=== PATIENT | male | born 1955 | race American Indian/Alaskan Native ===

== ENCOUNTER 2017-01-01 10:41 | Outpatient (CLI) | payer OTHER ==
--- NOTE | 2017-01-01 11:58 | Fluoroscopy Report ---
BARIUM SWALLOW INDICATION: Dysphagia for 6 months. 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 COMPARISON: None similar. FINDINGS: Barium swallow performed. Patient swallowed thick and thin barium without any difficulty as also tolerated effervescent granules well. No emanuel aspiration with normal swallowing mechanism. Penetration/undercoating however noted towards the end of the exam. No significant abnormal pooling within the vallecula or piriform sinuses. Transient appearance of lower cervical/subglottic esophageal narrowing on some images though not reliably confirmed, appearing better distended on other images. Thoracic esophagus is normal in course and caliber. Normal peristalsis. Distal esophageal B-ring incidentally noted. No focal suspicious mucosal abnormality. No demonstrable gastroesophageal reflux. Visualized gastric fundus is unremarkable. Standard barium tablet passed into the stomach without any difficulty or delay/holdup. CONCLUSION: Various findings, including penetration, as above. Direct endoscopic visualization of the lower cervical esophagus may also be considered, as appropriate. Thank you for the opportunity to participate in this patient's care.
== END 2017-01-01 10:42 | disposition home or self-care (01) ==
LOC: FLUORO 10:41
PROVIDERS: ATTEND Internal Medicine Gastroenterology
DX: R13.10 Dysphagia, unspecified (principal); Z85.89 Personal history of malignant neoplasm of other organs and systems
CPT/HCPCS: 74220

== ENCOUNTER 2017-08-09 19:51 | Emergency (ER) | payer OTHER ==
[2017-08-09] MEDS ORDERED: NACL 0.9% 500 ML 500 ML IV ONE (20:04)
--- NOTE | 2017-08-09 20:26 | Emergency Department Report ---
- General Chief complaint: Weakness Stated complaint: GENERAL WEAKNESS Time Seen by Provider: 08/09/17 20:24 Source: patient, EMS Mode of arrival: Stretcher Limitations: No Limitations - History of Present Illness Initial comments: 61-year-old diabetic male presents with weakness, onset today, along with nausea and vomiting. He was found to be febrile on triage in the emergency department, and brought to the main unit directly, rehydrated with saline. - Related Data Previous Rx's Medication Instructions Recorded Last Taken Type Amoxicillin/Potassium Clav 1 each PO TID #30 tablet 08/09/17 Unknown Rx [Augmentin 875-125 Tablet] Azithromycin [Zithromax TAB] 500 mg PO QDAY #2 tablet 08/09/17 Unknown Rx HYDROcodone/APAP 5-325 [[place] 1 each PO Q4HR PRN #15 tablet 08/09/17 Unknown Rx 5/325] Ondansetron [Zofran ODT TAB] 8 mg PO Q8HR PRN #10 tab.rapdis 08/09/17 Unknown Rx Allergies Allergy/AdvReac Type Severity Reaction Status Date / Time No Known Allergies Allergy Unverified 01/01/17 10:41 ED Review of Systems ROS: Stated complaint: GENERAL WEAKNESS Other details as noted in HPI ED Past Medical Hx - Past Medical History Hx Diabetes: Yes (type 2) - Social History Smoking Status: Never Smoker Substance Use Type: None - Medications Home Medications: Home Medications Medication Instructions Recorded Confirmed Last Taken Type Amoxicillin/Potassium Clav 1 each PO TID #30 tablet 08/09/17 Unknown Rx [Augmentin 875-125 Tablet] Azithromycin [Zithromax TAB] 500 mg PO QDAY #2 tablet 08/09/17 Unknown Rx HYDROcodone/APAP 5-325 [[place] 1 each PO Q4HR PRN #15 tablet 08/09/17 Unknown Rx 5/325] Ondansetron [Zofran ODT TAB] 8 mg PO Q8HR PRN #10 tab.rapdis 08/09/17 Unknown Rx ED Physical Exam - General Limitations: No Limitations ED Course Vital Signs 08/09/17 08/09/17 08/09/17 20:05 20:11 20:29 Temperature 101.3 F H Pulse Rate 116 H 110 H Respiratory 18 18 19 Rate Blood Pressure 150/83 O2 Sat by Pulse 94 94 94 Oximetry 08/09/17 08/09/17 08/09/17 20:30 20:45 20:55 Temperature 100.3 F H Pulse Rate 110 H 110 H Respiratory 22 19 Rate Blood Pressure 152/83 O2 Sat by Pulse 93 93 Oximetry 08/09/17 08/09/17 08/09/17 21:00 21:15 21:30 Temperature Pulse Rate 109 H 107 H 105 H Respiratory 21 19 17 Rate Blood Pressure 151/87 142/88 135/80 O2 Sat by Pulse 90 Oximetry 08/09/17 21:45 Temperature Pulse Rate 104 H Respiratory 21 Rate Blood Pressure 119/75 O2 Sat by Pulse 94 Oximetry - Reevaluation(s) Reevaluation #1: 08/09/17 21:53 Patient clinically stable on repeat examination, tolerates oral fluids, blood pressure is stable, oxygen saturation 100% on room air, and resting fairly comfortably. 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 His only comorbid factor is diabetes, but he has negative sepsis findings, with a normal lactate of 1.1. ED Medical Decision Making - Lab Data Result diagrams: 08/09/17 20:20 08/09/17 20:20 - Radiology Data Radiology results: report reviewed (left lower lobe infiltrate) - Medical Decision Making Patient has an isolated left lower lobe pneumonia, but is clinically stable, with normal vital signs, normal respirations, no labored breathing, is tolerating fluids now although he had a single episode of vomiting earlier in the afternoon, and has a moderate left shift but a normal total white count, and a normal lactate of 1.1. He is stable for discharge home, was given initial dose of Rocephin IV, as well as azithromycin, and will be discharged on Augmentin and azithromycin, with home rest, and 3-4 day follow-up with his physician. - Differential Diagnosis sepsis, urinary tract infection, pharyngitis, pneumonia Critical Care Time: No Critical care attestation.: If time is entered above; I have spent that time in minutes in the direct care of this critically ill patient, excluding procedure time. ED Disposition Clinical Impression: Community acquired pneumonia Qualifiers: Laterality: left Lung location: lower lobe of lung Qualified Code(s): J18.1 - Lobar pneumonia, unspecified organism Disposition: DC-01 TO HOME OR SELFCARE Is pt being admited?: No Does the pt Need Aspirin: No Condition: Stable Instructions: Community-acquired Pneumonia (ED), Bacterial Pneumonia (ED) Additional Instructions: Diagnosis: Pneumonia, left lower lobe You have a pneumonia in the left lower portion of her lung, but this is relatively uncomplicated, and you are stable to be treated with medicines at home. Take Augmentin 3 times daily for the next 10 days. This is an antibiotic to treat pneumonia Take azithromycin, 500 mg daily for the next 2 days, beginning with the first dose tomorrow, as the first dose has been given here in the emergency department. Although this is only 3 tablets, it we'll give you 10-14 days for protection against the most common organisms that are generally required in the community. Drink plenty of fluids, and rest while you're feeling poorly. Check your temperature several times a day, and treat any fever or any symptoms of feverishness with Tylenol or ibuprofen. You may eat and drink as you normally do . Continue your insulin as before. We have given work excuse for the next week, and you should have examination by her doctor before you go back to work, preferably at the beginning of this coming week. Have any significant worsening, particularly difficulty breathing. Prescriptions: Amoxicillin/Potassium Clav [Augmentin 875-125 Tablet] 1 each PO TID #30 tablet Azithromycin [Zithromax TAB] 500 mg PO QDAY #2 tablet HYDROcodone/APAP 5-325 [[place] 5/325] 1 each PO Q4HR PRN #15 tablet PRN Reason: cough or pain Ondansetron [Zofran ODT TAB] 8 mg PO Q8HR PRN #10 tab.rapdis PRN Reason: Nausea Forms: Work/School Release Form(ED) Time of Disposition: 22:03
[2017-08-09] MEDS ORDERED: TYLENOL PO ONE (20:38)
[2017-08-09 20:40] LABS: Hematocrit 33.2 % (35.5-45.6); Hemoglobin 11.5 gm/dl (11.8-15.2); Mean Corpuscular HGB Conc 35 % (32-34); Mean Corpuscular Hemoglobin 30 pg (28-32); Mean Corpuscular Volume 86 fl (84-94); Platelet Count 205 K/mm3 (140-440); Red Blood Count 3.84 M/mm3 (3.65-5.03); Red Cell Distribution Width 13.9 % (13.2-15.2)
[2017-08-09 20:49] LABS: INR 0.9 (0.87-1.13)
[2017-08-09 21:02] LABS: Albumin 4.3 g/dL (3.9-5)
--- NOTE | 2017-08-09 21:19 | XRay Report ---
FINAL REPORT PROCEDURE: XR CHEST 1V AP TECHNIQUE: Chest radiograph anteroposterior view. CPT 48213 HISTORY: possible Sepsis COMPARISON: No prior studies are available for comparison. FINDINGS: Heart: Normal. Mediastinum/Vessels: Normal. Lungs/Pleural space: The lungs are well-expanded. There are infiltrates at the left lung base. There is no pleural effusion or pneumothorax.. Bony thorax: No acute osseous abnormality. Life support devices: None. IMPRESSION: Left lower lobe infiltrates..
[2017-08-09 21:25] LABS: Anisocytosis 1+; Band Neutrophils # (Manual) 0.6 K/mm3; Basophils % (Manual) 0 % (0.0-1.8); Eosinophils % (Manual) 0 % (0.0-4.3); Platelet Estimate Consistent w Auto; Total Cells Counted 100
[2017-08-09] MEDS ORDERED: ZITHROMAX PO ONE (21:52)
[2017-08-09] MEDS ORDERED: cefTRIAXone 1 GM in NACL 0.9% 20 ML IV ONE (22:00)
[2017-08-09 22:59] VITALS: BP 133/81
== END 2017-08-09 22:50 | disposition home or self-care (01) ==
LOC: ED 19:51
DX: J18.1 Lobar pneumonia, unspecified organism (principal); E11.9 Type 2 diabetes mellitus without complications
CPT/HCPCS: 36415; 71045; 80053; 82140; 82805; 85007; 85025; 85610; 87040; 96374; 99285; J0696; J7040

== ENCOUNTER 2018-07-20 15:35 | Inpatient (IN) | payer OTHER ==
[2018-07-20] MEDS ORDERED: D5W 1,000 ML IV ONE (15:55)
[2018-07-20] MEDS ORDERED: D50W (25GM) Syringe IV ONE ×3 (15:55→18:14)
--- NOTE | 2018-07-20 16:04 | Emergency Department Report ---
HPI - General Chief Complaint: GI Bleed Time Seen by Provider: 07/20/18 15:41 - HPI HPI: Room 21 The patient is a 62-year-old male presenting with a chief complaint cough and altered mental status. The patient is lethargic and does not provide history. Family at bedside states the patient has had a cough productive of white sputum for the past 2 weeks. She states the patient also occasionally has posttussive emesis and blood is noted in the emesis. No history of fever. When asked what is bothering him the patient does not respond. The patient was initially hypoxic to the 70s on room air. This PO2 improved to 97% on 4 L nasal cannula Location: Mental state Duration: 2 weeks Quality: Altered Severity: Moderate Modifying factors: [see above] Context: [see above] Mode of transportation: [not driving] ED Past Medical Hx - Past Medical History Hx Hypertension: Yes Hx Diabetes: Yes (type 2) Hx of Cancer: Yes (throat CA s/p surgery, xrt, chemo) - Surgical History Past Surgical History?: No Additional Surgical History: throat sx - Family History Family history: no significant - Social History Smoking Status: Never Smoker Substance Use Type: None, Alcohol (occasional) - Medications Home Medications: Home Medications Medication Instructions Recorded Confirmed Last Taken Type Amoxicillin/Potassium Clav 1 each PO TID #30 tablet 08/09/17 Unknown Rx [Augmentin 875-125 Tablet] Azithromycin [Zithromax TAB] 500 mg PO QDAY #2 tablet 08/09/17 Unknown Rx HYDROcodone/APAP 5-325 [[place] 1 each PO Q4HR PRN #15 tablet 08/09/17 Unknown Rx 5/325] Ondansetron [Zofran ODT TAB] 8 mg PO Q8HR PRN #10 tab.rapdis 08/09/17 Unknown Rx ED Review of Systems ROS: Stated complaint: VOMITING, HIGH BLOOD SUGAR Other details as noted in HPI Comment: Unobtainable due to pts medical conditions Physical Exam - Physical Exam Physical Exam: GENERAL: The patient is well-developed well-nourished male appearing lethargic lying on stretcher. [] HEENT: Normocephalic. Atraumatic. Extraocular motions are intact. Patient has moist mucous membranes. NECK: Supple. Trachea midline CHEST/LUNGS: Clear to auscultation. There is no respiratory distress noted. HEART/CARDIOVASCULAR: Regular. There is no tachycardia. There is no gallop rub or murmur. ABDOMEN: Abdomen is soft, nontender. Patient has normal bowel sounds. There is no abdominal distention. SKIN: There is no rash. There is no edema. There is no diaphoresis. NEURO: The patient is lethargic and does not answer all questions. The patient is not cooperative. MUSCULOSKELETAL: There is no evidence of acute injury. ED Medical Decision Making - Lab Data Result diagrams: 07/20/18 16:03 07/20/18 16:03 Laboratory Tests 07/20/18 07/20/18 07/20/18 15:55 16:03 16:03 WBC 6.2 RBC 5.29 H Hgb 15.3 H Hct 46.1 H MCV 87 MCH 29 MCHC 33 RDW 14.8 Plt Count 246 Lymph % (Auto) 5.9 L [place] % (Auto) 3.8 Eos % (Auto) 0.1 Baso % (Auto) 0.3 Lymph # 0.4 L [place] # 0.2 Eos # 0.0 Baso # 0.0 Seg Neutrophils % 89.9 H Seg Neutrophils # 5.6 PT 13.6 INR 0.98 APTT 22.2 L VBG pH Sodium Potassium Chloride Carbon Dioxide Anion Gap BUN Creatinine Estimated GFR BUN/Creatinine Ratio POC Glucose < 40 L Calcium Total Bilirubin AST ALT Alkaline Phosphatase Total Creatine Kinase CK-MB (CK-2) CK-MB (CK-2) Rel Index Troponin T NT-Pro-B Natriuret Pep Total Protein Albumin Albumin/Globulin Ratio 07/20/18 07/20/18 07/20/18 16:03 16:05 16:20 WBC RBC Hgb Hct MCV MCH MCHC RDW Plt Count Lymph % (Auto) Louis[place] % (Auto) Eos % (Auto) Baso % (Auto) Lymph # [place] # Eos # Baso # Seg Neutrophils % Seg Neutrophils # PT INR APTT VBG pH 7.312 L Sodium 142 Potassium 4.3 Chloride 106.7 Carbon Dioxide 22 Anion Gap 18 BUN 39 H Creatinine 2.5 H Estimated GFR 32 BUN/Creatinine Ratio 16 POC Glucose 181 H Calcium 9.1 Total Bilirubin 0.50 AST 29 ALT 14 Alkaline Phosphatase 54 Total Creatine Kinase 871 H CK-MB (CK-2) 6.8 H CK-MB (CK-2) Rel Index 0.7 Troponin T 0.036 H NT-Pro-B Natriuret Pep 207.6 Total Protein 6.9 Albumin 3.4 L Albumin/Globulin Ratio 1.0 - Radiology Data Radiology results: report reviewed (chest x-ray), image reviewed (chest x-ray) interpreted by me: Chest [id number] lower lobe haziness right greater than left. No pneumothorax [facility] [address] [place] [address] XRay Report Signed Patient: ISA GORMAN JR MR#: [id number] : 1955 Acct:[id number] Age/Sex: 62 / M ADM Date: 07/20/18 Loc: ED Attending Dr: Ordering Physician: LUCERO RODRIGUEZ MD Date of Service: 07/20/18 Procedure(s): XR chest 1V ap Accession Number(s): [id number] cc: LUCERO RODRIGUEZ MD Fluoro Time In Minutes: XR CHEST 1V AP CLINICAL INDICATION: Male, 62 years of age. hypoxia COMPARISON: Chest x-ray July 2017. Findings: Frontal view(s) of the chest obtained. Cardiac silhouette is within normal limits. Patchy nodular airspace opacities right mid to lower lung and left lung base concerning for bilateral pneumonia. No large pleural effusion. No gross pneumothorax. IMPRESSION: Findings concerning for bilateral pneumonia. This document is electronically signed by Maria Del Carmen Tillman DO., July 20 2018 04:10:18 PM ET Transcribed By: LMA Dictated By: JUANA TILMLAN MD Electronically Authenticated By: JUANA TILLMAN MD Signed Date/Time: 07/20/18 1612 DD/ 1605 TD/TT: 07/20/18 1606 - Differential Diagnosis pneumonia, CHF, DKA, hyperglycemia Critical care attestation.: If time is entered above; I have spent that time in minutes in the direct care of this critically ill patient, excluding procedure time. ED Disposition Clinical Impression: Bilateral pneumonia, Acute on chronic renal insufficiency, Altered mental status, Hypoglycemia Disposition: OP ADMIT IP TO THIS HOSP Is pt being admited?: Yes Does the pt Need Aspirin: No Condition: Fair Instructions: Bacterial Pneumonia (ED) Forms: Accompanied Note Time of Disposition: 16:40 (hospitalist paged (Dr Flores))
[2018-07-20 16:11] LABS: Basophils % (Auto) 0.3 % (0.0-1.8); Eosinophils % (Auto) 0.1 % (0.0-4.3); Hematocrit 46.1 % (35.5-45.6); Hemoglobin 15.3 gm/dl (11.8-15.2); Lymphocytes # (Auto) 0.4 K/mm3 (1.2-5.4); Lymphocytes % (Auto) 5.9 % (13.4-35.0); Mean Corpuscular HGB Conc 33 % (32-34); Mean Corpuscular Volume 87 fl (84-94); Monocytes # (Auto) 0.2 K/mm3 (0.0-0.8); Monocytes % (Auto) 3.8 % (0.0-7.3); Platelet Count 246 K/mm3 (140-440); Red Blood Count 5.29 M/mm3 (3.65-5.03); Red Cell Distribution Width 14.8 % (13.2-15.2)
--- NOTE | 2018-07-20 16:12 | XRay Report ---
XR CHEST 1V AP CLINICAL INDICATION: Male, 62 years of age. hypoxia COMPARISON: Chest x-ray July 2017. Findings: Frontal view(s) of the chest obtained. Cardiac silhouette is within normal limits. Patch y nodular airspace opacities right mid to lower lung and left lung base concerning for bilateral pneu monia. No large pleural effusion. No gross pneumothorax. IMPRESSION: Findings concerning for bilateral pneumonia. This document is electronically signed by Maria Del Carmen Tillman DO., July 20 2018 04:10:18 PM ET
[2018-07-20 16:21] LABS: INR 0.98 (0.87-1.13); Partial Thromboplastin Time 22.2 Sec. (24.2-36.6)
[2018-07-20 16:33] LABS: Creatine Kinase MB 6.8 ng/mL (0.0-4.0)
[2018-07-20 16:34] LABS: Albumin 3.4 g/dL (3.9-5); Calcium 9.1 mg/dL (8.4-10.2)
[2018-07-20 16:58] LABS: Chol/HDL Ratio 2.78 %
[2018-07-20] MEDS ORDERED: ZITHROMAX 500 MG in NACL 0.9% 250ML 250 ML IV ONE (17:38)
[2018-07-20] MEDS ORDERED: ROCEPHIN/NS 2 GM/100 ML 2 GM/100 ML BAG IV ONE (17:38)
--- NOTE | 2018-07-20 18:30 | History and Physical Report ---
History of Present Illness Date of examination: 07/20/18 Date of admission: 07/20/18 Chief complaint: COugh for 1 week and Blood tinged sputum History of present illness: 62-year-old AAM with pmh of Htn and IDDM presenting with chief complaint of cough and altered mental status. As per at bedside patient has been coughing for 1 week and occasionally blood tinged sputum while coughing.Also slightly confused.Poor Historian.SOB and low grade fever present.No exacerbating or relieving factors Past Medical History Hypertension: Yes Diabetes: Yes (type 2) throat CA s/p surgery, xrt, chemo) Surgical History Past Surgical History?: No Additional Surgical History: throat sx Family History Family history: no significant Social History Smoking Status: Never Smoker Substance Use Type: None, Alcohol (occasional) - Medications Home Medications: Home Medications Medication Instructions Recorded Confirmed Last Taken Type Amoxicillin/Potassium Clav 1 each PO TID #30 tablet 08/09/17 Unknown Rx [Augmentin 875-125 Tablet] Azithromycin [Zithromax TAB] 500 mg PO QDAY #2 tablet 08/09/17 Unknown Rx HYDROcodone/APAP 5-325 [[place] 1 each PO Q4HR PRN #15 tablet 08/09/17 Unknown Rx 5/325] Ondansetron [Zofran ODT TAB] 8 mg PO Q8HR PRN #10 tab.rapdis 08/09/17 Unknown R x Review of Systems Other details as noted in HPI Cough Blood tinged sputum and low grade fever Comment: Unobtainable due to pts medical conditions Medications and Allergies Allergies Allergy/AdvReac Type Severity Reaction Status Date / Time No Known Allergies Allergy Unverified 01/01/17 10:41 Home Medications Medication Instructions Recorded Confirmed Last Taken Type Insulin Aspart [NovoLOG 100 See Protocol SQ ACHS 07/20/18 07/20/18 07/19/18 History UNITS/ML VIAL] Insulin Glargine,Hum.rec.anlog 30 units SQ HS 07/20/18 07/20/18 07/19/18 History [Lantus] Lisinopril/Hydrochlorothiazide 1 tab PO DAILY 07/20/18 07/20/18 07/20/18 History [Zestoretic 10-12.5 mg Tablet] Active Meds: Active Medications Azithromycin 500 mg/ Sodium (Chloride) 250 mls @ 250 mls/hr IV ONCE ONE Stop: 07/20/18 18:37 Exam - Constitutional Vitals: Temp Pulse Resp BP Pulse Ox 98.4 F 104 H 17 160/88 97 07/20/18 16:27 07/20/18 16:15 07/20/18 16:15 07/20/18 16:15 07/20/18 16:15 General appearance: Present: no acute distress, well-nourished - EENT Eyes: Present: PERRL ENT: hearing intact, clear oral mucosa - Neck Neck: Present: supple, normal ROM - Respiratory Respiratory effort: normal Respiratory: bilateral: CTA, rhonchi (Scattered) - Cardiovascular Heart rate: 78 Rhythm: regular Heart Sounds: Present: S1 & S2. Absent: rub, click - Extremities Extremities: no ischemia, pulses intact, pulses symmetrical, No edema Peripheral Pulses: within normal limits - Abdominal General gastrointestinal: Present: soft, non-tender, non-distended, normal bowel sounds Male genitourinary: Present: normal - Rectal Rectal Exam: stool brown - Integumentary Integumentary: Present: clear, warm, dry - Musculoskeletal Musculoskeletal: gait normal, strength equal bilaterally - Psychiatric Psychiatric: appropriate mood/affect, intact judgment & insight - Neurologic Neurologic: CNII-XII intact, moves all extremities - Allied Health Allied health notes reviewed: nursing, case management Results - Labs CBC & Chem 7: 07/20/18 16:03 07/20/18 16:03 Labs: Laboratory Last Values WBC 6.2 K/mm3 (4.5-11.0) 07/20/18 16:03 RBC 5.29 M/mm3 (3.65-5.03) H 07/20/18 16:03 Hgb 15.3 gm/dl (11.8-15.2) H 07/20/18 16:03 Hct 46.1 % (35.5-45.6) H 07/20/18 16:03 MCV 87 fl (84-94) 07/20/18 16:03 MCH 29 pg (28-32) 07/20/18 16:03 MCHC 33 % (32-34) 07/20/18 16:03 RDW 14.8 % (13.2-15.2) 07/20/18 16:03 Plt Count 246 K/mm3 (140-440) 07/20/18 16:03 Lymph % (Auto) 5.9 % (13.4-35.0) L 07/20/18 16:03 [place] % (Auto) 3.8 % (0.0-7.3) 07/20/18 16:03 Eos % (Auto) 0.1 % (0.0-4.3) 07/20/18 16:03 Baso % (Auto) 0.3 % (0.0-1.8) 07/20/18 16:03 Lymph # 0.4 K/mm3 (1.2-5.4) L 07/20/18 16:03 [place] # 0.2 K/mm3 (0.0-0.8) 07/20/18 16:03 Eos # 0.0 K/mm3 (0.0-0.4) 07/20/18 16:03 Baso # 0.0 K/mm3 (0.0-0.1) 07/20/18 16:03 Seg Neutrophils % 89.9 % (40.0-70.0) H 07/20/18 16:03 Seg Neutrophils # 5.6 K/mm3 (1.8-7.7) 07/20/18 16:03 PT 13.6 Sec. (12.2-14.9) 07/20/18 16:03 INR 0.98 (0.87-1.13) 07/20/18 16:03 APTT 22.2 Sec. (24.2-36.6) L 07/20/18 16:03 VBG pH 7.312 (7.320-7.420) L 07/20/18 16:05 Sodium 142 mmol/L (137-145) 07/20/18 16:03 Potassium 4.3 mmol/L (3.6-5.0) 07/20/18 16:03 Chloride 106.7 mmol/L (98-107) 07/20/18 16:03 Carbon Dioxide 22 mmol/L (22-30) 07/20/18 16:03 Anion Gap 18 mmol/L 07/20/18 16:03 BUN 39 mg/dL (9-20) H 07/20/18 16:03 Creatinine 2.5 mg/dL (0.8-1.5) H 07/20/18 16:03 Estimated GFR 32 ml/min 07/20/18 16:03 BUN/Creatinine Ratio 16 % 07/20/18 16:03 Glucose 31 mg/dL (75-100) L* 07/20/18 16:03 POC Glucose 53 (70-105) L 07/20/18 18:17 Calcium 9.1 mg/dL (8.4-10.2) 07/20/18 16:03 Total Bilirubin 0.50 mg/dL (0.1-1.2) 07/20/18 16:03 AST 29 units/L (5-40) 07/20/18 16:03 ALT 14 units/L (7-56) 07/20/18 16:03 Alkaline Phosphatase 54 units/L (35-129) 07/20/18 16:03 Ammonia 32.0 umol/L (25-60) 07/20/18 16:05 Total Creatine Kinase 871 units/L (55-170) H 07/20/18 16:03 CK-MB (CK-2) 6.8 ng/mL (0.0-4.0) H 07/20/18 16:03 CK-MB (CK-2) Rel Index 0.7 (0-4) 07/20/18 16:03 Troponin T 0.036 ng/mL (0.00-0.029) H 07/20/18 16:03 NT-Pro-B Natriuret Pep 207.6 pg/mL (0-900) 07/20/18 16:03 Total Protein 6.9 g/dL (6.3-8.2) 07/20/18 16:03 Albumin 3.4 g/dL (3.9-5) L 07/20/18 16:03 Albumin/Globulin Ratio 1.0 % 07/20/18 16:03 Triglycerides 70 mg/dL (2-149) 07/20/18 16:03 Cholesterol 145 mg/dL (50-199) 07/20/18 16:03 LDL Cholesterol Direct 93 mg/dL (50-130) 07/20/18 16:03 HDL Cholesterol 52 mg/dL (40-59) 07/20/18 16:03 Cholesterol/HDL Ratio 2.78 % 07/20/18 16:03 Plasma/Serum Alcohol < 0.01 % (0-0.07) 07/20/18 16:05 Blood Type O POSITIVE 04/27/19 16:05 Short CBC 07/20/18 Range/Units 16:03 WBC 6.2 (4.5-11.0) K/mm3 Hgb 15.3 H (11.8-15.2) gm/dl Hct 46.1 H (35.5-45.6) % Plt Count 246 (140-440) K/mm3 BMP 07/20/18 16:03 Sodium 142 Potassium 4.3 Chloride 106.7 Carbon Dioxide 22 BUN 39 H Creatinine 2.5 H Glucose 31 L* Calcium 9.1 Cardiac Enzymes 07/20/18 07/20/18 07/21/18 Range/Units 16:03 19:09 00:52 Total Creatine Kinase 871 H (55-170) units/L CK-MB (CK-2) 6.8 H (0.0-4.0) ng/mL Troponin T 0.036 H 0.014 0.036 H D (0.00-0.029) ng/mL Liver Function 07/20/18 Range/Units 16:03 Total Bilirubin 0.50 (0.1-1.2) mg/dL AST 29 (5-40) units/L ALT 14 (7-56) units/L Alkaline Phosphatase 54 (35-129) units/L Albumin 3.4 L (3.9-5) g/dL - Imaging and Cardiology EKG: report reviewed (SINUS Tach 103LVH ) Chest x-ray: report reviewed Imaging and Cardiology: CXR Patchy nodular airspace opacities right mid to lower lung and left lung base con cerning for bilateral pneumonia. No large pleural effusion. No gross pneumothorax. IMPRESSION: Findings concerning for bilateral pneumonia. Assessment and Plan Advance Directives: Yes (Full code) VTE prophylaxis?: Chemical Plan of care discussed with patient/family: Yes - Patient Problems (1) Bilateral pneumonia Current Visit: Yes Status: Acute Qualifiers: Lung location: upper lobe of lung Plan to address problem: treat as CAP On Rocephin and Zithromax Duonebs prn Mild Hemoptysis sec to PNA (2) Acute encephalopathy Current Visit: Yes Status: Acute Plan to address problem: Multifactorial Hypoglycemia and Pneumonia (3) Acute on chronic renal insufficiency Current Visit: Yes Status: Acute Plan to address problem: IV Fluids for now Nephrology consult (4) Hypoglycemia Current Visit: Yes Status: Acute Plan to address problem: Decrease Home insulin dosage and coverage only for now Hba1c ordered (5) IDDM (insulin dependent diabetes mellitus) Current Visit: Yes Status: Chronic Plan to address problem: COnt coverage (6) HTN (hypertension) Current Visit: Yes Status: Chronic Qualifiers: Hypertension type: essential hypertension Qualified Code(s): I10 - Essential (primary) hypertension Plan to address problem: Cont antihypertensives (7) DVT prophylaxis Current Visit: Yes Status: Acute Plan to address problem: On Heparin and GI prophylaxis
[2018-07-20] MEDS ORDERED: DILAUDID IV PRN (18:31)
[2018-07-20] MEDS ORDERED: ZOFRAN IV PRN (18:31)
[2018-07-20] MEDS ORDERED: PERCOCET 5/325 PO PRN (18:31)
[2018-07-20] MEDS ORDERED: SODIUM CHLORIDE FLUSH SYRINGE 10 ML IV PRN (18:31)
[2018-07-20] MEDS ORDERED: TYLENOL PO PRN (18:31)
[2018-07-20] MEDS ORDERED: PROVENTIL IH PRN (18:34)
[2018-07-20] MEDS ORDERED: ZOFRAN ODT PO PRN (18:37)
[2018-07-20] MEDS: D5NS 1,000 ML IV SCH (19:03)
[2018-07-20] MEDS ORDERED: HumaLOG SUB-Q ONE (19:36)
[2018-07-20] MEDS: DUONEB *Not for PRN Use IH SCH (20:38)
[2018-07-21] MEDS: D5NS 1,000 ML IV SCH (04:44)
[2018-07-21] MEDS: DUONEB *Not for PRN Use IH SCH ×4 (07:27→20:31)
[2018-07-21 07:36] LABS: Hemoglobin 8.4 gm/dl (11.8-15.2); Mean Corpuscular HGB Conc 32 % (32-34); Mean Corpuscular Volume 87 fl (84-94); Platelet Count 341 K/mm3 (140-440); Red Blood Count 2.99 M/mm3 (3.65-5.03); Red Cell Distribution Width 14.8 % (13.2-15.2)
[2018-07-21 08:54] LABS: Albumin 2.9 g/dL (3.9-5); Calcium 8.3 mg/dL (8.4-10.2)
[2018-07-21] MEDS ORDERED: NON-FORMULARY (Lisinopril/Hydrochlorothiazide [Zestoretic 10-12.5 Mg Tablet] 1 TAB) PO SCH (10:00)
[2018-07-21] MEDS ORDERED: ZESTRIL PO SCH (10:00)
[2018-07-21] MEDS ORDERED: HCTZ PO SCH (10:00)
[2018-07-21 10:05] LABS: Band Neutrophils # (Manual) 0.8 K/mm3; Basophils % (Manual) 0 % (0.0-1.8); Eosinophils % (Manual) 0 % (0.0-4.3); Total Cells Counted 100
[2018-07-21 10:07] LABS: Platelet Estimate Consistent w Auto; RBC Morphology Normal
[2018-07-21] MEDS: PEPCID PO SCH ×2 (10:09→21:22)
[2018-07-21] MEDS: HEPARIN SUB-Q SCH ×2 (10:09→21:22)
[2018-07-21] MEDS: SODIUM CHLORIDE FLUSH SYRINGE 10 ML IV SCH ×3 (10:09→21:22)
[2018-07-21 11:15] LABS: Hematocrit 25.9 % (35.5-45.6); Hemoglobin 8.5 gm/dl (11.8-15.2); Mean Corpuscular HGB Conc 33 % (32-34); Mean Corpuscular Volume 87 fl (84-94); Platelet Count 323 K/mm3 (140-440); Red Blood Count 2.99 M/mm3 (3.65-5.03); Red Cell Distribution Width 14.7 % (13.2-15.2)
[2018-07-21] MEDS: HumuLIN R SUB-Q SCH ×3 (13:00→21:23)
[2018-07-21 13:14] LABS: Bilirubin,Urine NEG (Negative); Blood,Urine SM (Negative); Color,Urine Yellow (Yellow); Urobilinogen,Urine < 2.0 mg/dL (<2.0)
[2018-07-21] MEDS: COREG PO SCH (13:15)
--- NOTE | 2018-07-21 13:38 | Consultation ---
History of Present Illness - Reason for Consult Consult date: 07/21/18 acute renal failure, chronic renal failure - History of Present Illness The patient is a 62 YO male with history significant for DM type 2, HTN and CKD stage 3 who presented to [facility] ER with cough and altered mental status. The patient is a poor historian. History was provided by his at the bedside. Symptoms include cough productive of white sputum, sore throat, N & V for the past week. No history of fever, chills, diarrhea, abd pain, cp, sob, hemoptysis, dysuria or hematuria. The patient was initially hypoxic in the 70s on room air, improved to 97% on 4 L nasal cannula. Creatinine was 2.5 on admission. Nephrology was consulted for further evaluation. Past History Past Medical History: diabetes, hypertension, renal failure Medications and Allergies Allergies Allergy/AdvReac Type Severity Reaction Status Date / Time No Known Allergies Allergy Unverified 01/01/17 10:41 Home Medications Medication Instructions Recorded Confirmed Last Taken Type Insulin Aspart [NovoLOG 100 See Protocol SQ ACHS 07/20/18 07/20/18 07/19/18 History UNITS/ML VIAL] Insulin Glargine,Hum.rec.anlog 30 units SQ HS 07/20/18 07/20/18 07/19/18 History [Lantus] Lisinopril/Hydrochlorothiazide 1 tab PO DAILY 07/20/18 07/20/18 07/20/18 History [Zestoretic 10-12.5 mg Tablet] Active Meds: Active Medications Acetaminophen (Tylenol) 650 mg PO Q4H PRN PRN Reason: Pain MILD(1-3)/Fever >100.5/PEDROZA Albuterol (Proventil) 2.5 mg IH Q4HRT PRN PRN Reason: Shortness Of Breath Albuterol/Ipratropium (Duoneb *Not For Prn Use*) 1 ampul IH QIDRT [facility] Last Admin: 07/21/18 07:27 Dose: 1 ampul Documented by: Carvedilol (Coreg) 12.5 mg PO BID [facility] Last Admin: 07/21/18 13:15 Dose: 12.5 mg Documented by: Famotidine (Pepcid) 10 mg PO BID [facility] Last Admin: 07/21/18 10:09 Dose: 10 mg Documented by: Heparin Sodium (Porcine) (Heparin) 5,000 unit SUB-Q Q12HR [facility] Last Admin: 07/21/18 10:09 Dose: 5,000 unit Documented by: Hydromorphone HCl (Dilaudid) 0.5 mg IV Q3H PRN PRN Reason: Pain , Severe (7-10) Azithromycin 500 mg/ Sodium (Chloride) 250 mls @ 250 mls/hr IV Q24H [facility] Ceftriaxone Sodium (Rocephin/Ns 2 Gm/100 Ml) 2 gm in 100 mls @ 200 mls/hr IV Q24H [facility]; Protocol Insulin Glargine (Lantus) 10 units SUB-Q QHS [facility] Insulin Human Regular (Humulin R) 0 units SUB-Q ACHS [facility]; Protocol Last Admin: 07/21/18 13:00 Dose: 8 units Documented by: Ondansetron HCl (Zofran) 4 mg IV Q8H PRN PRN Reason: Nausea And Vomiting Ondansetron HCl (Zofran Odt) 8 mg PO Q8HR PRN PRN Reason: Nausea Oxycodone/Acetaminophen (Percocet 5/325) 1 tab PO Q6H PRN PRN Reason: Pain, Moderate (4-6) Sodium Chloride (Sodium Chloride Flush Syringe 10 Ml) 10 ml IV BID [facility] Last Admin: 07/21/18 10:25 Dose: Not Given Documented by: Sodium Chloride (Sodium Chloride Flush Syringe 10 Ml) 10 ml IV PRN PRN PRN Reason: LINE FLUSH Review of Systems Constitutional: no weight loss, no weight gain, no fever, no chills, no anorexia Cardiovascular: high blood pressure, no chest pain, no orthopnea, no edema, no lightheadedness, no shortness of breath, no leg edema Respiratory: cough, cough with sputum, no hemoptysis, no shortness of breath, no dyspnea on exertion, no home oxygen Gastrointestinal: nausea, vomiting, no abdominal pain, no diarrhea, no melena Genitourinary Male: no dysuria, no hematuria Integumentary: no rash, no wounds, no jaundice Neurological: change in speech, change in mentation, confusion, no paralysis, no syncope, no convulsions, no double vision, no loss of vision Exam - Vital Signs Vital signs: Vital Signs Pulse Resp Pulse Ox 77 23 90 07/20/18 15:49 07/20/18 15:49 07/20/18 15:49 - General Appearance General appearance: well-developed, well-nourished, appears stated age, other (not in distress) EENT: ATNC, PERRL, mucous membranes dry, hearing intact, vision intact Neck: Present: neck supple, trachea midline Respiratory: Clear to Ascultation Heart: regular, S1S2, no murmurs Gastrointestinal: Present: normoactive bowel sounds. Absent: tenderness, distended Integumentary: no rash, warm and dry Neurologic: no focal deficit, no asterixis, other (?dysphonia) Musculoskeletal: Present: other (no edema) Results - Lab Results 07/21/18 10:49 07/21/18 06:50 Most recent lab results Calcium 8.3 mg/dL (8.4-10.2) L 07/21/18 06:50 - Image Kidney/bladder ultrasound: pending Assessment and Plan 1. Acute kidney injury: Vasomotor AISHA superimposed on CKD stage 3 in the setting of volume depletion. Continue IV fluids. Urine studies and Renal US ordered. Renal function improving. Monitor renal function. Avoid nephrotoxic agents. Meds dosage based on GFR. 2. FEN: IV fluids. Monitor lytes. 3. Bilateral PNA. 4. Hypoxic respiratory failure: 2/2 PNA. 5. Acute encephalopathy: Improved. 6. DM type 2. 7. HTN.
[2018-07-21] MEDS ORDERED: NACL 0.9% 1000 ML 1,000 ML IV SCH (14:00)
--- NOTE | 2018-07-21 15:36 | Progress Note ---
Assessment and Plan Assessment and plan: Bilateral pneumonia -On IV antibiotics -Blood cultures pending Acute on chronic anemia -We'll monitor H&H and transfuse as needed -We will check stool for occult blood Mildly elevated troponin -For stress test in a.m. Acute on CKD stage 3 -Creatinine level improving on IV fluid, will monitor -Nephrology following DM2 with hypoglycemia -Currently hyperglycemic, dextrose IV fluid discontinued -On SSI and low dose Lantus Hypertension -Uncontrolled, amlodipine started Acute metabolic encephalopathy -Due to hypoglycemia versus infection -Improved Metabolic acidosis -Likely due to renal impairment, will monitor History of throat cancer -Status post treatment -For outpatient follow-up Disposition: For discharge when medically stable History Interval history: Patient has no new complaints. Hospitalist Physical - Constitutional Vitals: Temp Pulse Resp BP Pulse Ox 98.7 F 112 H 20 167/76 95 07/21/18 11:15 07/21/18 13:56 07/21/18 13:56 07/21/18 13:15 07/21/18 11:15 General appearance: Present: no acute distress, well-nourished - EENT Eyes: Present: PERRL, EOM intact ENT: hearing intact, clear oral mucosa - Neck Neck: Present: supple - Respiratory Respiratory effort: normal Respiratory: bilateral: CTA - Cardiovascular Rhythm: regular Heart Sounds: Present: S1 & S2 - Extremities Extremities: No edema - Abdominal General gastrointestinal: soft, non-tender, normal bowel sounds - Integumentary Integumentary: Present: clear, warm, dry - Neurologic Neurologic: CNII-XII intact Results - Labs CBC & Chem 7: 07/21/18 10:49 07/21/18 06:50 Labs: Laboratory Last Values WBC 13.9 K/mm3 (4.5-11.0) H 07/21/18 10:49 RBC 2.99 M/mm3 (3.65-5.03) L 07/21/18 10:49 Hgb 8.5 gm/dl (11.8-15.2) L 07/21/18 10:49 Hct 25.9 % (35.5-45.6) L 07/21/18 10:49 MCV 87 fl (84-94) 07/21/18 10:49 MCH 29 pg (28-32) 07/21/18 10:49 MCHC 33 % (32-34) 07/21/18 10:49 RDW 14.7 % (13.2-15.2) 07/21/18 10:49 Plt Count 323 K/mm3 (140-440) 07/21/18 10:49 Lymph % (Auto) 5.9 % (13.4-35.0) L 07/20/18 16:03 [place] % (Auto) 3.8 % (0.0-7.3) 07/20/18 16:03 Eos % (Auto) 0.1 % (0.0-4.3) 07/20/18 16:03 Baso % (Auto) 0.3 % (0.0-1.8) 07/20/18 16:03 Lymph # 0.4 K/mm3 (1.2-5.4) L 07/20/18 16:03 [place] # 0.2 K/mm3 (0.0-0.8) 07/20/18 16:03 Eos # 0.0 K/mm3 (0.0-0.4) 07/20/18 16:03 Baso # 0.0 K/mm3 (0.0-0.1) 07/20/18 16:03 Add Manual Diff Complete 07/21/18 06:50 Total Counted 100 07/21/18 06:50 Seg Neutrophils % [employer] 07/21/18 06:50 Seg Neuts % (Manual) 62.0 % (40.0-70.0) 07/21/18 06:50 Band Neutrophils % 6.0 % 07/21/18 06:50 Lymphocytes % (Manual) 29.0 % (13.4-35.0) 07/21/18 06:50 Reactive Lymphs % (Man) 1.0 % 07/21/18 06:50 Monocytes % (Manual) 1.0 % (0.0-7.3) 07/21/18 06:50 Eosinophils % (Manual) 0 % (0.0-4.3) 07/21/18 06:50 Basophils % (Manual) 0 % (0.0-1.8) 07/21/18 06:50 Metamyelocytes % 1.0 % 07/21/18 06:50 Myelocytes % 0 % 07/21/18 06:50 Promyelocytes % 0 % 07/21/18 06:50 Blast Cells % 0 % 07/21/18 06:50 Nucleated RBC % Not Reportable 07/21/18 06:50 Seg Neutrophils # 11.5 K/mm3 (1.8-7.7) H 07/21/18 06:50 Seg Neutrophils # Man 8.0 K/mm3 (1.8-7.7) H 07/21/18 06:50 Band Neutrophils # 0.8 K/mm3 07/21/18 06:50 Lymphocytes # (Manual) 3.7 K/mm3 (1.2-5.4) 07/21/18 06:50 Abs React Lymphs (Man) 0.1 K/mm3 07/21/18 06:50 Monocytes # (Manual) 0.1 K/mm3 (0.0-0.8) 07/21/18 06:50 Eosinophils # (Manual) 0.0 K/mm3 (0.0-0.4) 07/21/18 06:50 Basophils # (Manual) 0.0 K/mm3 (0.0-0.1) 07/21/18 06:50 Metamyelocytes # 0.1 K/mm3 07/21/18 06:50 Myelocytes # 0.0 K/mm3 07/21/18 06:50 Promyelocytes # 0.0 K/mm3 07/21/18 06:50 Blast Cells # 0.0 K/mm3 07/21/18 06:50 WBC Morphology Not Reportable 07/21/18 06:50 Hypersegmented Neuts Not Reportable 07/21/18 06:50 Hyposegmented Neuts Not Reportable 07/21/18 06:50 Hypogranular Neuts Not Reportable 07/21/18 06:50 Smudge Cells Not Reportable 07/21/18 06:50 Toxic Granulation Not Reportable 07/21/18 06:50 Toxic Vacuolation Not Reportable 07/21/18 06:50 Dohle Bodies Not Reportable 07/21/18 06:50 Pelger-Huet Anomaly Not Reportable 07/21/18 06:50 Juan Alberto Rods Not Reportable 07/21/18 06:50 Platelet Estimate Consistent w auto 07/21/18 06:50 Clumped Platelets Not Reportable 07/21/18 06:50 Plt Clumps, EDTA Not Reportable 07/21/18 06:50 Large Platelets Not Reportable 07/21/18 06:50 Giant Platelets Not Reportable 07/21/18 06:50 Platelet Satelliting Not Reportable 07/21/18 06:50 Plt Morphology Comment Not Reportable 07/21/18 06:50 RBC Morphology Normal 07/21/18 06:50 Dimorphic RBCs Not Reportable 07/21/18 06:50 Polychromasia Not Reportable 07/21/18 06:50 Hypochromasia Not Reportable 07/21/18 06:50 Poikilocytosis Not Reportable 07/21/18 06:50 Anisocytosis Not Reportable 07/21/18 06:50 Microcytosis Not Reportable 07/21/18 06:50 Macrocytosis Not Reportable 07/21/18 06:50 Spherocytes Not Reportable 07/21/18 06:50 Pappenheimer Bodies Not Reportable 07/21/18 06:50 Sickle Cells Not Reportable 07/21/18 06:50 Target Cells Not Reportable 07/21/18 06:50 Tear Drop Cells Not Reportable 07/21/18 06:50 Ovalocytes Not Reportable 07/21/18 06:50 Helmet Cells Not Reportable 07/21/18 06:50 Garcia-Xenia Bodies Not Reportable 07/21/18 06:50 [place] Rings Not Reportable 07/21/18 06:50 Thurman Cells Not Reportable 07/21/18 06:50 Bite Cells Not Reportable 07/21/18 06:50 Crenated Cell Not Reportable 07/21/18 06:50 Elliptocytes Not Reportable 07/21/18 06:50 Acanthocytes (Spur) Not Reportable 07/21/18 06:50 Rouleaux Not Reportable 07/21/18 06:50 Hemoglobin C Crystals Not Reportable 07/21/18 06:50 Schistocytes Not Reportable 07/21/18 06:50 Malaria parasites Not Reportable 07/21/18 06:50 Luis Miguel Bodies Not Reportable 07/21/18 06:50 Hem Pathologist Commnt No 07/21/18 06:50 PT 13.6 Sec. (12.2-14.9) 07/20/18 16:03 INR 0.98 (0.87-1.13) 07/20/18 16:03 APTT 22.2 Sec. (24.2-36.6) L 07/20/18 16:03 VBG pH 7.312 (7.320-7.420) L 07/20/18 16:05 Sodium 140 mmol/L (137-145) 07/21/18 06:50 Potassium 4.5 mmol/L (3.6-5.0) 07/21/18 06:50 Chloride 106.0 mmol/L (98-107) 07/21/18 06:50 Carbon Dioxide 21 mmol/L (22-30) L 07/21/18 06:50 Anion Gap 18 mmol/L 07/21/18 06:50 BUN 38 mg/dL (9-20) H 07/21/18 06:50 Creatinine 2.2 mg/dL (0.8-1.5) H 07/21/18 06:50 Estimated GFR 37 ml/min 07/21/18 06:50 BUN/Creatinine Ratio 17 % 07/21/18 06:50 Glucose 250 mg/dL (75-100) H 07/21/18 06:50 POC Glucose 406 (70-105) H 07/21/18 12:16 Hemoglobin A1c 11.4 % (4-6) H 07/20/18 16:03 Calcium 8.3 mg/dL (8.4-10.2) L 07/21/18 06:50 Total Bilirubin 0.20 mg/dL (0.1-1.2) 07/21/18 06:50 AST 21 units/L (5-40) 07/21/18 06:50 ALT 11 units/L (7-56) 07/21/18 06:50 Alkaline Phosphatase 40 units/L (35-129) 07/21/18 06:50 Ammonia 32.0 umol/L (25-60) 07/20/18 16:05 Total Creatine Kinase 871 units/L (55-170) H 07/20/18 16:03 CK-MB (CK-2) 6.8 ng/mL (0.0-4.0) H 07/20/18 16:03 CK-MB (CK-2) Rel Index 0.7 (0-4) 07/20/18 16:03 Troponin T 0.036 ng/mL (0.00-0.029) H D 07/21/18 00:52 NT-Pro-B Natriuret Pep 207.6 pg/mL (0-900) 07/20/18 16:03 Total Protein 6.1 g/dL (6.3-8.2) L 07/21/18 06:50 Albumin 2.9 g/dL (3.9-5) L 07/21/18 06:50 Albumin/Globulin Ratio 0.9 % 07/21/18 06:50 Triglycerides 70 mg/dL (2-149) 07/20/18 16:03 Cholesterol 145 mg/dL (50-199) 07/20/18 16:03 LDL Cholesterol Direct 93 mg/dL (50-130) 07/20/18 16:03 HDL Cholesterol 52 mg/dL (40-59) 07/20/18 16:03 Cholesterol/HDL Ratio 2.78 % 07/20/18 16:03 Urine Color Yellow (Yellow) 07/21/18 12:48 Urine Turbidity Clear (Clear) 07/21/18 12:48 Urine pH 5.0 (5.0-7.0) 07/21/18 12:48 Ur Specific [place] 1.015 (1.003-1.030) 07/21/18 12:48 Urine Protein 100 mg/dl mg/dL (Negative) 07/21/18 12:48 Urine Glucose (UA) >=500 mg/dL (Negative) 07/21/18 12:48 Urine Ketones Neg mg/dL (Negative) 07/21/18 12:48 Urine Blood Sm (Negative) 07/21/18 12:48 Urine Nitrite Neg (Negative) 07/21/18 12:48 Urine Bilirubin Neg (Negative) 07/21/18 12:48 Urine Urobilinogen < 2.0 mg/dL (<2.0) 07/21/18 12:48 Ur Leukocyte Esterase Neg (Negative) 07/21/18 12:48 Urine WBC (Auto) 1.0 /HPF (0.0-6.0) 07/21/18 12:48 Urine RBC (Auto) 2.0 /HPF (0.0-6.0) 07/21/18 12:48 Plasma/Serum Alcohol < 0.01 % (0-0.07) 07/20/18 16:05 Blood Type O POSITIVE 07/20/18 16:05 Antibody Screen Negative 07/20/18 16:05 Active Medications - Current Medications Current Medications: Generic Name Dose Route Start Last Admin Trade Name Freq PRN Reason Stop Dose Admin Acetaminophen 650 mg 07/20/18 18:31 Tylenol PO Q4H PRN Pain MILD(1-3)/Fever >100.5/PEDROZA Albuterol 2.5 mg 07/20/18 18:34 Proventil IH Q4HRT PRN Shortness Of Breath Albuterol/Ipratropium 1 ampul 07/20/18 20:00 07/21/18 13:46 Duoneb *Not For Prn Use* IH 1 ampul QIDRT NAEEM Administration Carvedilol 12.5 mg 07/21/18 11:00 07/21/18 13:15 Coreg PO 12.5 mg BID NAEEM Administration Famotidine 10 mg 07/21/18 10:00 07/21/18 10:09 Pepcid PO 10 mg BID NAEEM Administration Heparin Sodium (Porcine) 5,000 unit 07/21/18 10:00 07/21/18 10:09 Heparin SUB-Q 5,000 unit Q12HR NAEEM Administration Hydromorphone HCl 0.5 mg 07/20/18 18:31 Dilaudid IV Q3H PRN Pain , Severe (7-10) Azithromycin 500 mg/ Sodium 250 mls @ 250 mls/hr 07/21/18 18:00 Chloride IV Q24H [facility] Ceftriaxone Sodium 2 gm in 100 mls @ 200 mls/hr 07/21/18 18:00 Rocephin/Ns 2 Gm/100 Ml IV Q24H [facility] Protocol Sodium Chloride 1,000 mls @ 75 mls/hr 07/21/18 14:00 07/21/18 15:11 Nacl 0.9% 1000 Ml IV 75 mls/hr DIRECT NAEEM Administration Insulin Glargine 10 units 07/21/18 22:00 Lantus SUB-Q QHS [facility] Insulin Human Regular 0 units 07/21/18 12:32 07/21/18 13:00 Humulin R SUB-Q 8 units ACHS NAEEM Administration Protocol Ondansetron HCl 4 mg 07/20/18 18:31 Zofran IV Q8H PRN Nausea And Vomiting Ondansetron HCl 8 mg 07/20/18 18:37 Zofran Odt PO Q8HR PRN Nausea Oxycodone/Acetaminophen 1 tab 07/20/18 18:31 Percocet 5/325 PO Q6H PRN Pain, Moderate (4-6) Sodium Chloride 10 ml 07/20/18 22:00 07/21/18 10:25 Sodium Chloride Flush Syringe 10 Ml IV Not Given BID NAEEM Sodium Chloride 10 ml 07/20/18 18:31 Sodium Chloride Flush Syringe 10 Ml IV PRN PRN LINE FLUSH
[2018-07-21] MEDS: NACL 0.45% 1000 ML 1,000 ML IV SCH (18:29)
[2018-07-21] MEDS: ROCEPHIN/NS 2 GM/100 ML 2 GM/100 ML BAG IV SCH (18:37)
[2018-07-21] MEDS: ZITHROMAX 500 MG in NACL 0.9% 250ML 250 ML IV SCH (18:38)
[2018-07-21] MEDS: NORVASC PO SCH (18:47)
[2018-07-21] MEDS ORDERED: LANTUS SUB-Q SCH (22:00)
[2018-07-22] MEDS: COREG PO SCH ×3 (02:39→22:27)
[2018-07-22 06:55] LABS: BUN/Creatinine Ratio 18; Blood Urea Nitrogen 29 mg/dL (9-20); Hemolysis Index 53
[2018-07-22 07:15] LABS: Calcium TNR mg/dL (8.4-10.2)
[2018-07-22] MEDS: NACL 0.45% 1000 ML 1,000 ML IV SCH ×2 (07:44→22:41)
[2018-07-22] MEDS: HumuLIN R SUB-Q SCH ×4 (08:12→22:25)
[2018-07-22] MEDS: DUONEB *Not for PRN Use IH SCH ×4 (08:32→20:35)
[2018-07-22] MEDS ORDERED: MAGNESIUM SULFATE 4GM/100ML 4 GM/100 ML BAG IV ONE (10:18)
--- NOTE | 2018-07-22 10:19 | Progress Note ---
Assessment and Plan 1. Acute kidney injury: Vasomotor AISHA superimposed on CKD stage 3 in the setting of volume depletion. Continue IV fluids. Urine studies pending. Renal US negative for hydro. Renal function improving. Monitor renal function. Avoid nephrotoxic agents. Meds dosage based on GFR. 2. FEN: IV fluids. Monitor lytes. 3. Bilateral PNA. 4. Hypoxic respiratory failure: 2/2 PNA. 5. Acute encephalopathy: Improved. 6. Anemia: S/p PRBC. 7. DM type 2. 8. HTN. Subjective Date of service: 07/22/18 Interval history: Patient was seen and examined at the bedside. Patient doing better. Objective - Vital Signs Vital signs: Vital Signs - 12hr 07/21/18 07/22/18 07/22/18 23:01 00:07 02:39 Temperature 99.8 F H Pulse Rate 100 H 95 H 99 H Pulse Rate [ Anterior Bilateral Throughout] Respiratory 20 Rate Respiratory Rate [Anterior Bilateral Throughout] Blood Pressure 109/65 104/54 O2 Sat by Pulse 94 Oximetry 07/22/18 07/22/18 07/22/18 03:42 08:15 08:32 Temperature 99.1 F Pulse Rate 103 H Pulse Rate [ 97 H Anterior Bilateral Throughout] Respiratory 18 17 Rate Respiratory 18 Rate [Anterior Bilateral Throughout] Blood Pressure 137/84 O2 Sat by Pulse 96 97 Oximetry 07/22/18 07/22/18 08:44 09:42 Temperature 98.6 F Pulse Rate 98 H 97 H Pulse Rate [ Anterior Bilateral Throughout] Respiratory 18 Rate Respiratory Rate [Anterior Bilateral Throughout] Blood Pressure 146/77 O2 Sat by Pulse 98 Oximetry - General Appearance General appearance: well-developed, well-nourished, appears stated age, other (not in distress) EENT: ATNC, PERRL, hearing intact, vision intact Neck: supple Respiratory: Present: Clear to Ascultation Cardiology: regular, S1S2, no murmurs Gastrointestinal: normoactive bowel sounds Integumentary: no rash, warm and dry Neurologic: no focal deficit, no asterixis, alert and oriented x3 Musculoskeletal: other (no edema) - Lab 07/22/18 17:00 07/22/18 05:47 Most recent lab results Calcium TNR 07/22/18 05:47 Phosphorus 1.70 mg/dL (2.5-4.5) L 07/22/18 05:47 Magnesium 1.30 mg/dL (1.7-2.3) L 07/22/18 05:47 Medications & Allergies - Medications Allergies/Adverse Reactions: Allergies No Known Allergies Allergy (Unverified 01/01/17 10:41) Home Medications: Home Medications Medication Instructions Recorded Confirmed Last Taken Type Insulin Aspart [NovoLOG 100 See Protocol SQ ACHS 07/20/18 07/20/18 07/19/18 History UNITS/ML VIAL] Insulin Glargine,Hum.rec.anlog 30 units SQ HS 07/20/18 07/20/18 07/19/18 History [Lantus] Lisinopril/Hydrochlorothiazide 1 tab PO DAILY 07/20/18 07/20/18 07/20/18 History [Zestoretic 10-12.5 mg Tablet] Active Medications: Generic Name Dose Route Start Last Admin Trade Name Freq PRN Reason Stop Dose Admin Acetaminophen 650 mg 07/20/18 18:31 Tylenol PO Q4H PRN Pain MILD(1-3)/Fever >100.5/PEDROZA Albuterol 2.5 mg 07/20/18 18:34 Proventil IH Q4HRT PRN Shortness Of Breath Albuterol/Ipratropium 1 ampul 07/20/18 20:00 07/22/18 08:32 Duoneb *Not For Prn Use* IH 1 ampul QIDRT NAEEM Administration Amlodipine Besylate 10 mg 07/21/18 18:00 07/21/18 18:47 Norvasc PO 10 mg QDAY NAEEM Administration Carvedilol 12.5 mg 07/21/18 11:00 07/22/18 02:39 Coreg PO Not Given BID NAEEM Famotidine 10 mg 07/21/18 10:00 07/21/18 21:22 Pepcid PO 10 mg BID NAEEM Administration Heparin Sodium (Porcine) 5,000 unit 07/21/18 10:00 07/21/18 21:22 Heparin SUB-Q 5,000 unit Q12HR [facility] Administration Hydromorphone HCl 0.5 mg 07/20/18 18:31 Dilaudid IV Q3H PRN Pain , Severe (7-10) Azithromycin 500 mg/ Sodium 250 mls @ 250 mls/hr 07/21/18 18:00 07/21/18 18:38 Chloride IV 250 mls/hr Q24H [facility] Administration Ceftriaxone Sodium 2 gm in 100 mls @ 200 mls/hr 07/21/18 18:00 07/21/18 18:37 Rocephin/Ns 2 Gm/100 Ml IV 200 mls/hr Q24H [facility] Administration Protocol Sodium Chloride 1,000 mls @ 100 mls/hr 07/21/18 16:00 07/22/18 07:44 Nacl 0.45% 1000 Ml IV 100 mls/hr DIRECT NAEEM Administration Insulin Glargine 10 units 07/21/18 22:00 07/21/18 21:23 Lantus SUB-Q Not Given QHS [facility] Insulin Human Regular 0 units 07/21/18 12:32 07/22/18 08:12 Humulin R SUB-Q Not Given ACHS [facility] Protocol Ondansetron HCl 4 mg 07/20/18 18:31 Zofran IV Q8H PRN Nausea And Vomiting Ondansetron HCl 8 mg 07/20/18 18:37 Zofran Odt PO Q8HR PRN Nausea Oxycodone/Acetaminophen 1 tab 07/20/18 18:31 Percocet 5/325 PO Q6H PRN Pain, Moderate (4-6) Sodium Chloride 10 ml 07/20/18 22:00 07/21/18 21:22 Sodium Chloride Flush Syringe 10 Ml IV 10 ml BID NAEEM Administration Sodium Chloride 10 ml 07/20/18 18:31 Sodium Chloride Flush Syringe 10 Ml IV PRN PRN LINE FLUSH
[2018-07-22] MEDS: SODIUM CHLORIDE FLUSH SYRINGE 10 ML IV SCH ×2 (10:45→22:28)
[2018-07-22] MEDS: PHOS-NAK PO SCH ×2 (11:59→12:40)
[2018-07-22] MEDS: NORVASC PO SCH (12:02)
[2018-07-22] MEDS: HEPARIN SUB-Q SCH (12:03)
[2018-07-22] MEDS: PEPCID PO SCH (12:03)
--- NOTE | 2018-07-22 13:28 | Ultrasound Report ---
ULTRASOUND RENAL BILATERAL HISTORY: Acute renal failure. TECHNIQUE: transabdominal ultrasound with color Doppler interrogation. FINDINGS: The right kidney measures 11.6cm. Right renal cortex: 1.1cm. The left kidney measures 11.1cm. Left renal cortex: 1.5cm. Scans of the kidneys show normal renal contours. There is normal central calyceal clustering and good preservation of the cortical thickness. There is no evidence of mass or hydronephrosis. The views of the bladder and the region of the ureters appear normal. IMPRESSION: Unremarkable renal ultrasound.
[2018-07-22 13:44] LABS: Hemoglobin 6.1 gm/dl (11.8-15.2)
[2018-07-22 13:47] LABS: Mean Corpuscular HGB Conc 32 % (32-34); Mean Corpuscular Volume 90 fl (84-94); Platelet Count 220 K/mm3 (140-440); Red Cell Distribution Width 15.3 % (13.2-15.2)
[2018-07-22 13:50] LABS: Anisocytosis 1+; Band Neutrophils # (Manual) 1.5 K/mm3; Basophils % (Manual) 0 % (0.0-1.8); Burr Cells Few; Eosinophils % (Manual) 0 % (0.0-4.3); Monocytes % (Manual) 0 % (0.0-7.3); Platelet Estimate Consistent w Auto; Schistocytes Rare; Total Cells Counted 100
--- NOTE | 2018-07-22 13:53 | Progress Note ---
Assessment and Plan Assessment and plan: Bilateral pneumonia -Continue IV antibiotics -Blood cultures negative so far Acute on chronic anemia -We'll monitor H&H and transfuse as needed -Patient actual baseline Hemoglobin is 11. The elevated hemoglobin on admission was likely due to hemoconcentration -stool for occult blood Mildly elevated troponin -Stress test cancelled by cardiology due to anemia Acute on CKD stage 3 -Creatinine level improving on IV fluid, will monitor -Nephrology following DM2 with hypoglycemia -Currently hyperglycemic -Insulin regimen adjusted Hypertension -Controlled on amlodipine Acute metabolic encephalopathy -Due to hypoglycemia versus infection -Improved Metabolic acidosis -Likely due to renal impairment, resolved Hypomagnesemia/Hypophosphatemia -On repletion, will monitor levels History of throat cancer -Status post treatment -For outpatient follow-up Physical deconditioning -PT consulted. Disposition: For discharge when medically stable History Interval history: Pt reports feeling better. He has no new complaints. Hospitalist Physical - Constitutional Vitals: Temp Pulse Resp BP Pulse Ox 98.5 F 99 H 18 138/77 99 07/22/18 12:38 07/22/18 12:38 07/22/18 12:38 07/22/18 12:38 07/22/18 12:38 General appearance: Present: no acute distress, well-nourished - EENT Eyes: Present: PERRL, EOM intact ENT: hearing intact, clear oral mucosa - Neck Neck: Present: supple - Respiratory Respiratory effort: normal Respiratory: bilateral: CTA - Cardiovascular Rhythm: regular Heart Sounds: Present: S1 & S2 - Extremities Extremities: No edema - Abdominal General gastrointestinal: soft, non-tender, normal bowel sounds - Integumentary Integumentary: Present: clear, warm, dry - Neurologic Neurologic: CNII-XII intact Results - Labs CBC & Chem 7: 07/22/18 05:47 07/22/18 05:47 Labs: Laboratory Last Values WBC 9.5 K/mm3 (4.5-11.0) 07/22/18 05:47 RBC 2.10 M/mm3 (3.65-5.03) L 07/22/18 05:47 Hgb 6.1 gm/dl (11.8-15.2) L 07/22/18 05:47 Hct 19.0 % (35.5-45.6) L* D 07/22/18 05:47 MCV 90 fl (84-94) 07/22/18 05:47 MCH 29 pg (28-32) 07/22/18 05:47 MCHC 32 % (32-34) 07/22/18 05:47 RDW 15.3 % (13.2-15.2) H 07/22/18 05:47 Plt Count 220 K/mm3 (140-440) 07/22/18 05:47 Lymph % (Auto) 5.9 % (13.4-35.0) L 07/20/18 16:03 [place] % (Auto) 3.8 % (0.0-7.3) 07/20/18 16:03 Eos % (Auto) 0.1 % (0.0-4.3) 07/20/18 16:03 Baso % (Auto) 0.3 % (0.0-1.8) 07/20/18 16:03 Lymph # 0.4 K/mm3 (1.2-5.4) L 07/20/18 16:03 [place] # 0.2 K/mm3 (0.0-0.8) 07/20/18 16:03 Eos # 0.0 K/mm3 (0.0-0.4) 07/20/18 16:03 Baso # 0.0 K/mm3 (0.0-0.1) 07/20/18 16:03 Add Manual Diff Complete 07/21/18 06:50 Total Counted 100 07/21/18 06:50 Seg Neutrophils % Tape Sewer 07/21/18 06:50 Seg Neuts % (Manual) 62.0 % (40.0-70.0) 07/21/18 06:50 Band Neutrophils % 6.0 % 07/21/18 06:50 Lymphocytes % (Manual) 29.0 % (13.4-35.0) 07/21/18 06:50 Reactive Lymphs % (Man) 1.0 % 07/21/18 06:50 Monocytes % (Manual) 1.0 % (0.0-7.3) 07/21/18 06:50 Eosinophils % (Manual) 0 % (0.0-4.3) 07/21/18 06:50 Basophils % (Manual) 0 % (0.0-1.8) 07/21/18 06:50 Metamyelocytes % 1.0 % 07/21/18 06:50 Myelocytes % 0 % 07/21/18 06:50 Promyelocytes % 0 % 07/21/18 06:50 Blast Cells % 0 % 07/21/18 06:50 Nucleated RBC % Not Reportable 07/21/18 06:50 Seg Neutrophils # 11.5 K/mm3 (1.8-7.7) H 07/21/18 06:50 Seg Neutrophils # Man 8.0 K/mm3 (1.8-7.7) H 07/21/18 06:50 Band Neutrophils # 0.8 K/mm3 07/21/18 06:50 Lymphocytes # (Manual) 3.7 K/mm3 (1.2-5.4) 07/21/18 06:50 Abs React Lymphs (Man) 0.1 K/mm3 07/21/18 06:50 Monocytes # (Manual) 0.1 K/mm3 (0.0-0.8) 07/21/18 06:50 Eosinophils # (Manual) 0.0 K/mm3 (0.0-0.4) 07/21/18 06:50 Basophils # (Manual) 0.0 K/mm3 (0.0-0.1) 07/21/18 06:50 Metamyelocytes # 0.1 K/mm3 07/21/18 06:50 Myelocytes # 0.0 K/mm3 07/21/18 06:50 Promyelocytes # 0.0 K/mm3 07/21/18 06:50 Blast Cells # 0.0 K/mm3 07/21/18 06:50 WBC Morphology Not Reportable 07/21/18 06:50 Hypersegmented Neuts Not Reportable 07/21/18 06:50 Hyposegmented Neuts Not Reportable 07/21/18 06:50 Hypogranular Neuts Not Reportable 07/21/18 06:50 Smudge Cells Not Reportable 07/21/18 06:50 Toxic Granulation Not Reportable 07/21/18 06:50 Toxic Vacuolation Not Reportable 07/21/18 06:50 Dohle Bodies Not Reportable 07/21/18 06:50 Pelger-Huet Anomaly Not Reportable 07/21/18 06:50 [place] Rods Not Reportable 07/21/18 06:50 Platelet Estimate Consistent w auto 07/21/18 06:50 Clumped Platelets Not Reportable 07/21/18 06:50 Plt Clumps, EDTA Not Reportable 07/21/18 06:50 Large Platelets Not Reportable 07/21/18 06:50 Giant Platelets Not Reportable 07/21/18 06:50 Platelet Satelliting Not Reportable 07/21/18 06:50 Plt Morphology Comment Not Reportable 07/21/18 06:50 RBC Morphology Normal 07/21/18 06:50 Dimorphic RBCs Not Reportable 07/21/18 06:50 Polychromasia Not Reportable 07/21/18 06:50 Hypochromasia Not Reportable 07/21/18 06:50 Poikilocytosis Not Reportable 07/21/18 06:50 Anisocytosis Not Reportable 07/21/18 06:50 Microcytosis Not Reportable 07/21/18 06:50 Macrocytosis Not Reportable 07/21/18 06:50 Spherocytes Not Reportable 07/21/18 06:50 Pappenheimer Bodies Not Reportable 07/21/18 06:50 Sickle Cells Not Reportable 07/21/18 06:50 Target Cells Not Reportable 07/21/18 06:50 Tear Drop Cells Not Reportable 07/21/18 06:50 Ovalocytes Not Reportable 07/21/18 06:50 Helmet Cells Not Reportable 07/21/18 06:50 Garcia-Olean Bodies Not Reportable 07/21/18 06:50 [place] Rings Not Reportable 07/21/18 06:50 Manas Cells Not Reportable 07/21/18 06:50 Bite Cells Not Reportable 07/21/18 06:50 Crenated Cell Not Reportable 07/21/18 06:50 Elliptocytes Not Reportable 07/21/18 06:50 Acanthocytes (Spur) Not Reportable 07/21/18 06:50 Rouleaux Not Reportable 07/21/18 06:50 Hemoglobin C Crystals Not Reportable 07/21/18 06:50 Schistocytes Not Reportable 07/21/18 06:50 Malaria parasites Not Reportable 07/21/18 06:50 [place] Miguel Bodies Not Reportable 07/21/18 06:50 Hem Pathologist Commnt No 07/21/18 06:50 PT 13.6 Sec. (12.2-14.9) 07/20/18 16:03 INR 0.98 (0.87-1.13) 07/20/18 16:03 APTT 22.2 Sec. (24.2-36.6) L 07/20/18 16:03 VBG pH 7.312 (7.320-7.420) L 07/20/18 16:05 Sodium TNR 07/22/18 05:47 Potassium 3.6 mmol/L (3.6-5.0) 07/22/18 05:47 Chloride 94.2 mmol/L (98-107) L 07/22/18 05:47 Carbon Dioxide TNR 07/22/18 05:47 Anion Gap TNR 07/22/18 05:47 BUN 29 mg/dL (9-20) H 07/22/18 05:47 Creatinine 1.6 mg/dL (0.8-1.5) H 07/22/18 05:47 Estimated GFR 53 ml/min 07/22/18 05:47 BUN/Creatinine Ratio 18 % 07/22/18 05:47 Glucose 232 mg/dL (75-100) H 07/22/18 05:47 POC Glucose 336 (70-105) H 07/22/18 11:48 Hemoglobin A1c 11.4 % (4-6) H 07/20/18 16:03 Calcium TNR 07/22/18 05:47 Phosphorus 1.70 mg/dL (2.5-4.5) L 07/22/18 05:47 Magnesium 1.30 mg/dL (1.7-2.3) L 07/22/18 05:47 Total Bilirubin 0.20 mg/dL (0.1-1.2) 07/21/18 06:50 AST 21 units/L (5-40) 07/21/18 06:50 ALT 11 units/L (7-56) 07/21/18 06:50 Alkaline Phosphatase 40 units/L (35-129) 07/21/18 06:50 Ammonia 32.0 umol/L (25-60) 07/20/18 16:05 Total Creatine Kinase 871 units/L (55-170) H 07/20/18 16:03 CK-MB (CK-2) 6.8 ng/mL (0.0-4.0) H 07/20/18 16:03 CK-MB (CK-2) Rel Index 0.7 (0-4) 07/20/18 16:03 Troponin T 0.036 ng/mL (0.00-0.029) H D 07/21/18 00:52 NT-Pro-B Natriuret Pep 207.6 pg/mL (0-900) 07/20/18 16:03 Total Protein 6.1 g/dL (6.3-8.2) L 07/21/18 06:50 Albumin 2.9 g/dL (3.9-5) L 07/21/18 06:50 Albumin/Globulin Ratio 0.9 % 07/21/18 06:50 Triglycerides 70 mg/dL (2-149) 07/20/18 16:03 Cholesterol 145 mg/dL (50-199) 07/20/18 16:03 LDL Cholesterol Direct 93 mg/dL (50-130) 07/20/18 16:03 HDL Cholesterol 52 mg/dL (40-59) 07/20/18 16:03 Cholesterol/HDL Ratio 2.78 % 07/20/18 16:03 PTH Intact 57.12 pg/mL (15-65) 07/22/18 05:47 Urine Color Yellow (Yellow) 07/21/18 12:48 Urine Turbidity Clear (Clear) 07/21/18 12:48 Urine pH 5.0 (5.0-7.0) 07/21/18 12:48 Ur Specific [place] 1.015 (1.003-1.030) 07/21/18 12:48 Urine Protein 100 mg/dl mg/dL (Negative) 07/21/18 12:48 Urine Glucose (UA) >=500 mg/dL (Negative) 07/21/18 12:48 Urine Ketones Neg mg/dL (Negative) 07/21/18 12:48 Urine Blood Sm (Negative) 07/21/18 12:48 Urine Nitrite Neg (Negative) 07/21/18 12:48 Urine Bilirubin Neg (Negative) 07/21/18 12:48 Urine Urobilinogen < 2.0 mg/dL (<2.0) 07/21/18 12:48 Ur Leukocyte Esterase Neg (Negative) 07/21/18 12:48 Urine WBC (Auto) 1.0 /HPF (0.0-6.0) 07/21/18 12:48 Urine RBC (Auto) 2.0 /HPF (0.0-6.0) 07/21/18 12:48 Plasma/Serum Alcohol < 0.01 % (0-0.07) 07/20/18 16:05 Blood Type O POSITIVE 07/20/18 16:05 Antibody Screen Negative 07/20/18 16:05 Active Medications - Current Medications Current Medications: Generic Name Dose Route Start Last Admin Trade Name Freq PRN Reason Stop Dose Admin Acetaminophen 650 mg 07/20/18 18:31 Tylenol PO Q4H PRN Pain MILD(1-3)/Fever >100.5/PEDROZA Albuterol 2.5 mg 07/20/18 18:34 Proventil IH Q4HRT PRN Shortness Of Breath Albuterol/Ipratropium 1 ampul 07/20/18 20:00 07/22/18 11:36 Duoneb *Not For Prn Use* IH 1 ampul QIDRT NAEEM Administration Amlodipine Besylate 10 mg 07/21/18 18:00 07/22/18 12:02 Norvasc PO 10 mg QDAY NAEEM Administration Carvedilol 12.5 mg 07/21/18 11:00 07/22/18 12:03 Coreg PO 12.5 mg BID NAEEM Administration Famotidine 10 mg 07/21/18 10:00 07/22/18 12:03 Pepcid PO 10 mg BID NAEEM Administration Heparin Sodium (Porcine) 5,000 unit 07/21/18 10:00 07/22/18 12:03 Heparin SUB-Q 5,000 unit Q12HR NAEEM Administration Hydromorphone HCl 0.5 mg 07/20/18 18:31 Dilaudid IV Q3H PRN Pain , Severe (7-10) Azithromycin 500 mg/ Sodium 250 mls @ 250 mls/hr 07/21/18 18:00 07/21/18 18:38 Chloride IV 250 mls/hr Q24H NAEEM Administration Ceftriaxone Sodium 2 gm in 100 mls @ 200 mls/hr 07/21/18 18:00 07/21/18 18:37 Rocephin/Ns 2 Gm/100 Ml IV 200 mls/hr Q24H NAEEM Administration Protocol Sodium Chloride 1,000 mls @ 100 mls/hr 07/21/18 16:00 07/22/18 07:44 Nacl 0.45% 1000 Ml IV 100 mls/hr DIRECT NAEEM Administration Magnesium Sulfate 4 gm in 100 mls @ 25 mls/hr 07/22/18 10:18 Magnesium Sulfate 4gm/100ml IV 07/22/18 14:17 ONCE ONE Insulin Glargine 15 units 07/22/18 12:33 Lantus SUB-Q QHS NAEEM Insulin Human Lispro 5 unit 07/22/18 14:00 Humalog SUB-Q TID NAEEM Insulin Human Regular 0 units 07/21/18 12:32 07/22/18 12:03 Humulin R SUB-Q 6 units ACHS NAEEM Administration Protocol Ondansetron HCl 4 mg 07/20/18 18:31 Zofran IV Q8H PRN Nausea And Vomiting Ondansetron HCl 8 mg 07/20/18 18:37 Zofran Odt PO Q8HR PRN Nausea Oxycodone/Acetaminophen 1 tab 07/20/18 18:31 Percocet 5/325 PO Q6H PRN Pain, Moderate (4-6) Potassium Phos/Sodium Phos 2 each 07/22/18 18:00 Phos-Nak PO 07/22/18 18:01 Q6HR ONE Sodium Chloride 10 ml 07/20/18 22:00 07/22/18 10:45 Sodium Chloride Flush Syringe 10 Ml IV Not Given BID NAEEM Sodium Chloride 10 ml 07/20/18 18:31 Sodium Chloride Flush Syringe 10 Ml IV PRN PRN LINE FLUSH
[2018-07-22] MEDS: HumaLOG SUB-Q SCH ×2 (14:22→22:25)
[2018-07-22] MEDS ORDERED: MIRALAX 3350 PO PRN (14:36)
[2018-07-22] MEDS ORDERED: NACL 0.9% 500 ML 500 ML IV ONE (14:38)
[2018-07-22] MEDS: SENOKOT S PO SCH (15:07)
[2018-07-22] MEDS: PROTONIX IV SCH ×2 (15:07→22:26)
--- NOTE | 2018-07-22 15:57 | Gastroenterology Consultation ---
<MICHELLE MCKEON - Last Filed: 07/22/18 16:20> History of Present Illness - Reason for Consult Consult date: 07/22/18 anemia Requesting physician: STEPHEN WRIGHT - History of Present Illness Patient is a 62 y/o male with PMH of HTN, DM, and left neck cancer (dx 2010; s/p surgery/xrt/chemo) who presented to ED on 07/20 with c/o cough, AMS, fever, and SOB. He was admitted and currently being treated with pneumonia, along with mildly elevated troponin, acute on CKD stage 3, DM, HTN, metabolic acidosis, and acute metabolic encephalopathy (improved). GI has been consulted for acute on chronic anemia with drop in H/H today to 6.1/19.0. This afternoon patient was resting in bed w/o acute distress and family at bedside. He currently is w/o GI complaints. Reports a scant amount of blood tinged sputum and emesis over the past week but no overt bleeding. Denies melena or hematochezia. Last BM greenish in color per pt report. Has no CP, wt loss, abdominal pain, N/V improved, diarrhea, or constipation. No NSAID use, hx of PUD, or hx of prior GI bleeding. Patient is previously known to our service and followed by Dr. Zarate. He has a h x of chronic dysphagia 2/2 XRT from neck cancer (barium swallow with tablet 2016 with tablet passing into stomach) but is currently tolerating diet w/o difficulty. Last colonoscopy in 12/2016 that showed transverse polyp, diverticulosis in sigmoid colon, and internal hemorrhoids (otherwise normal). Upon exam, rectal revealed light brown stool. Past History Past Medical History: diabetes, hypertension, renal failure Past Surgical History: Other (throat CA s/p surgery, xrt, chemo) Social history: denies: smoking, alcohol abuse Medications and Allergies Allergies Allergy/AdvReac Type Severity Reaction Status Date / Time No Known Allergies Allergy Unverified 01/01/17 10:41 Home Medications Medication Instructions Recorded Confirmed Last Taken Type Insulin Aspart [NovoLOG 100 See Protocol SQ ACHS 07/20/18 07/20/18 07/19/18 History UNITS/ML VIAL] Insulin Glargine,Hum.rec.anlog 30 units SQ HS 07/20/18 07/20/18 07/19/18 History [Lantus] Lisinopril/Hydrochlorothiazide 1 tab PO DAILY 07/20/18 07/20/18 07/20/18 History [Zestoretic 10-12.5 mg Tablet] Active Meds: Active Medications Acetaminophen (Tylenol) 650 mg PO Q4H PRN PRN Reason: Pain MILD(1-3)/Fever >100.5/PEDROZA Albuterol (Proventil) 2.5 mg IH Q4HRT PRN PRN Reason: Shortness Of Breath Albuterol/Ipratropium (Duoneb *Not For Prn Use*) 1 ampul IH QIDRT [facility] Last Admin: 07/22/18 11:36 Dose: 1 ampul Documented by: Amlodipine Besylate (Norvasc) 10 mg PO QDAY [facility] Last Admin: 07/22/18 12:02 Dose: 10 mg Documented by: Carvedilol (Coreg) 12.5 mg PO BID [facility] Last Admin: 07/22/18 12:03 Dose: 12.5 mg Documented by: Hydromorphone HCl (Dilaudid) 0.5 mg IV Q3H PRN PRN Reason: Pain , Severe (7-10) Azithromycin 500 mg/ Sodium (Chloride) 250 mls @ 250 mls/hr IV Q24H [facility] Last Admin: 07/21/18 18:38 Dose: 250 mls/hr Documented by: Ceftriaxone Sodium (Rocephin/Ns 2 Gm/100 Ml) 2 gm in 100 mls @ 200 mls/hr IV Q24H [facility]; Protocol Last Admin: 07/21/18 18:37 Dose: 200 mls/hr Documented by: Sodium Chloride (Nacl 0.45% 1000 Ml) 1,000 mls @ 100 mls/hr IV DIRECT [facility] Last Admin: 07/22/18 07:44 Dose: 100 mls/hr Documented by: Insulin Glargine (Lantus) 15 units SUB-Q QHS [facility] Insulin Human Lispro (Humalog) 5 unit SUB-Q TID [facility] Last Admin: 07/22/18 14:22 Dose: Not Given Documented by: Insulin Human Regular (Humulin R) 0 units SUB-Q ACHS [facility]; Protocol Last Admin: 07/22/18 12:03 Dose: 6 units Documented by: Ondansetron HCl (Zofran) 4 mg IV Q8H PRN PRN Reason: Nausea And Vomiting Ondansetron HCl (Zofran Odt) 8 mg PO Q8HR PRN PRN Reason: Nausea Oxycodone/Acetaminophen (Percocet 5/325) 1 tab PO Q6H PRN PRN Reason: Pain, Moderate (4-6) Pantoprazole Sodium (Protonix) 40 mg IV BID [facility] Last Admin: 07/22/18 15:07 Dose: 40 mg Documented by: Polyethylene Glycol (Miralax [id number]) 17 gm PO QDAY PRN PRN Reason: Constipation Last Admin: 07/22/18 15:07 Dose: 17 gm Documented by: Potassium Phos/Sodium Phos (Phos-Nak) 2 each PO Q6HR ONE Stop: 07/22/18 18:01 Senna/Docusate Sodium (Senokot S) 2 tab PO Q12H [facility] Last Admin: 07/22/18 15:07 Dose: 2 tab Documented by: Sodium Chloride (Sodium Chloride Flush Syringe 10 Ml) 10 ml IV BID [facility] Last Admin: 07/22/18 10:45 Dose: Not Given Documented by: Sodium Chloride (Sodium Chloride Flush Syringe 10 Ml) 10 ml IV PRN PRN PRN Reason: LINE FLUSH medications reviewed/updated as required Review of Systems - Review of Systems All systems: negative Gastrointestinal: other (scant amount of blood tinged sputum/emesis over the past week), no abdominal pain, no nausea, no vomiting, no melena, no hematochezia Exam - Constitutional Vital Signs: Temp Pulse Resp BP Pulse Ox 98.5 F 78 20 124/72 91 07/22/18 12:38 07/22/18 14:05 07/22/18 14:05 07/22/18 14:05 07/22/18 14:05 General appearance: no acute distress - EENT Eyes: PERRL, EOM intact ENT: hearing intact - Respiratory Respiratory: bilateral: diminished - Cardiovascular Rhythm: regular - Gastrointestinal General gastrointestinal: Present: soft, non-tender, non-distended, normal bowel sounds Rectal Exam: other (light brown stool (Dr. Thompson at bedside during exam)) - Neurologic Neurological: alert and oriented x3 - Labs CBC & Chem 7: 07/22/18 05:47 07/22/18 05:47 Lab Results: Laboratory Results - last 24 hr 07/20/18 07/21/18 07/21/18 16:05 16:28 21:08 WBC RBC Hgb Hct MCV MCH MCHC RDW Plt Count Add Manual Diff Total Counted Seg Neuts % (Manual) Band Neutrophils % Lymphocytes % (Manual) Reactive Lymphs % (Man) Monocytes % (Manual) Eosinophils % (Manual) Basophils % (Manual) Metamyelocytes % Myelocytes % Promyelocytes % Blast Cells % Nucleated RBC % Seg Neutrophils # Man Band Neutrophils # Lymphocytes # (Manual) Abs React Lymphs (Man) Monocytes # (Manual) Eosinophils # (Manual) Basophils # (Manual) Metamyelocytes # Myelocytes # Promyelocytes # Blast Cells # WBC Morphology Hypersegmented Neuts Hyposegmented Neuts Hypogranular Neuts Smudge Cells Toxic Granulation Toxic Vacuolation Dohle Bodies Pelger-Huet Anomaly Juan Alberto Rods Platelet Estimate Clumped Platelets Plt Clumps, EDTA Large Platelets Giant Platelets Platelet Satelliting Plt Morphology Comment RBC Morphology Dimorphic RBCs Polychromasia Hypochromasia Poikilocytosis Anisocytosis Microcytosis Macrocytosis Spherocytes Pappenheimer Bodies Sickle Cells Target Cells Tear Drop Cells Ovalocytes Helmet Cells Garcia-Castine Bodies [place] Rings Manas Cells Bite Cells Crenated Cell Elliptocytes Acanthocytes (Spur) Rouleaux Hemoglobin C Crystals Schistocytes Malaria parasites Luis Miguel Bodies Hem Pathologist Commnt Sodium Potassium Chloride Carbon Dioxide Anion Gap BUN Creatinine Estimated GFR BUN/Creatinine Ratio Glucose POC Glucose 316 H 131 H Calcium Phosphorus Magnesium PTH Intact Crossmatch See Detail 07/22/18 07/22/18 07/22/18 05:47 05:47 05:47 WBC 9.5 RBC 2.10 L Hgb 6.1 L Hct 19.0 L* D MCV 90 MCH 29 MCHC 32 RDW 15.3 H Plt Count 220 Add Manual Diff Complete Total Counted 100 Seg Neuts % (Manual) 84.0 H Band Neutrophils % 16.0 Lymphocytes % (Manual) 0 L Reactive Lymphs % (Man) 0 Monocytes % (Manual) 0 Eosinophils % (Manual) 0 Basophils % (Manual) 0 Metamyelocytes % 0 Myelocytes % 0 Promyelocytes % 0 Blast Cells % 0 Nucleated RBC % Not Reportable Seg Neutrophils # Man 8.0 H Band Neutrophils # 1.5 Lymphocytes # (Manual) 0.0 L Abs React Lymphs (Man) 0.0 Monocytes # (Manual) 0.0 Eosinophils # (Manual) 0.0 Basophils # (Manual) 0.0 Metamyelocytes # 0.0 Myelocytes # 0.0 Promyelocytes # 0.0 Blast Cells # 0.0 WBC Morphology Not Reportable Hypersegmented Neuts Not Reportable Hyposegmented Neuts Not Reportable Hypogranular Neuts Not Reportable Smudge Cells Not Reportable Toxic Granulation Not Reportable Toxic Vacuolation Not Reportable Dohle Bodies Not Reportable Pelger-Huet Anomaly Not Reportable Juan Alberto Rods Not Reportable Platelet Estimate Consistent w auto Clumped Platelets Not Reportable Plt Clumps, EDTA Not Reportable Large Platelets Not Reportable Giant Platelets Not Reportable Platelet Satelliting Not Reportable Plt Morphology Comment Not Reportable RBC Morphology Not Reportable Dimorphic RBCs Not Reportable Polychromasia Not Reportable Hypochromasia Not Reportable Poikilocytosis Not Reportable Anisocytosis 1+ Microcytosis Not Reportable Macrocytosis Not Reportable Spherocytes Not Reportable Pappenheimer Bodies Not Reportable Sickle Cells Not Reportable Target Cells Not Reportable Tear Drop Cells Not Reportable Ovalocytes Not Reportable Helmet Cells Not Reportable Garcia-Castine Bodies Not Reportable [place] Rings Not Reportable [place] Cells Few Bite Cells Not Reportable Crenated Cell Not Reportable Elliptocytes Not Reportable Acanthocytes (Spur) Not Reportable Rouleaux Not Reportable Hemoglobin C Crystals Not Reportable Schistocytes Rare Malaria parasites Not Reportable Luis Miguel Bodies Not Reportable Hem Pathologist Commnt No Sodium TNR Potassium 3.6 Chloride 94.2 L Carbon Dioxide TNR Anion Gap TNR BUN 29 H Creatinine 1.6 H Estimated GFR 53 BUN/Creatinine Ratio 18 Glucose 232 H POC Glucose Calcium TNR Phosphorus 1.70 L Magnesium 1.30 L PTH Intact 57.12 Crossmatch 07/22/18 07/22/18 08:09 11:48 WBC RBC Hgb Hct MCV MCH MCHC RDW Plt Count Add Manual Diff Total Counted Seg Neuts % (Manual) Band Neutrophils % Lymphocytes % (Manual) Reactive Lymphs % (Man) Monocytes % (Manual) Eosinophils % (Manual) Basophils % (Manual) Metamyelocytes % Myelocytes % Promyelocytes % Blast Cells % Nucleated RBC % Seg Neutrophils # Man Band Neutrophils # Lymphocytes # (Manual) Abs React Lymphs (Man) Monocytes # (Manual) Eosinophils # (Manual) Basophils # (Manual) Metamyelocytes # Myelocytes # Promyelocytes # Blast Cells # WBC Morphology Hypersegmented Neuts Hyposegmented Neuts Hypogranular Neuts Smudge Cells Toxic Granulation Toxic Vacuolation Dohle Bodies Pelger-Huet Anomaly Juan Alberto Rods Platelet Estimate Clumped Platelets Plt Clumps, EDTA Large Platelets Giant Platelets Platelet Satelliting Plt Morphology Comment RBC Morphology Dimorphic RBCs Polychromasia Hypochromasia Poikilocytosis Anisocytosis Microcytosis Macrocytosis Spherocytes Pappenheimer Bodies Sickle Cells Target Cells Tear Drop Cells Ovalocytes Helmet Cells Garcia-Castine Bodies [place] Rings Manas Cells Bite Cells Crenated Cell Elliptocytes Acanthocytes (Spur) Rouleaux Hemoglobin C Crystals Schistocytes Malaria parasites Luis Miguel Bodies Hem Pathologist Commnt Sodium Potassium Chloride Carbon Dioxide Anion Gap BUN Creatinine Estimated GFR BUN/Creatinine Ratio Glucose POC Glucose 282 H 336 H Calcium Phosphorus Magnesium PTH Intact Crossmatch Assessment and Plan 1.acute on chronic anemia -H/H 6.1/19.0-trended down (8.5/25.9 yesterday;15.3/46.1 on admission likely due to hemoconcentration) -transfusion PRBCs pending -continue to monitor H/H and transfuse as needed -no active signs of bleeding (pt reports scant amount of blood tinged sputum/emesis over the past week; rectal with light brown stool) -currently HD stable -last colonoscopy 12/2016 showed transverse polyp, diverticulosis in sigmoid, and internal hemorrhoids -etiology-likely multifactorial -will order repeat stat H/H to determine accuracy (r/o lab error) -stool occult -haptoglobin (r/o hemolysis) -no plan for scope at this time unless overt bleeding develops given lack of clinical evidence of significant GI bleeding -continue PPI and supportive care -will follow 2.Hx of neck cancer -s/p surgery/XRT/chemo with mild chronic dysphagia -currently tolerating diet 3.bilateral pneumonia 4.CKD stage 3 5.Mildly elevated troponin -Stress test cancelled by cardiology due to anemia 6.DM 7.Hypertension <RUSH THOMPSON R - Last Filed: 07/22/18 16:42> Medications and Allergies Active Meds: Active Medications Acetaminophen (Tylenol) 650 mg PO Q4H PRN PRN Reason: Pain MILD(1-3)/Fever >100.5/PEDROZA Albuterol (Proventil) 2.5 mg IH Q4HRT PRN PRN Reason: Shortness Of Breath Albuterol/Ipratropium (Duoneb *Not For Prn Use*) 1 ampul IH QIDRT [facility] Last Admin: 07/22/18 16:06 Dose: 1 ampul Documented by: Amlodipine Besylate (Norvasc) 10 mg PO QDAY [facility] Last Admin: 07/22/18 12:02 Dose: 10 mg Documented by: Carvedilol (Coreg) 12.5 mg PO BID [facility] Last Admin: 07/22/18 12:03 Dose: 12.5 mg Documented by: Hydromorphone HCl (Dilaudid) 0.5 mg IV Q3H PRN PRN Reason: Pain , Severe (7-10) Azithromycin 500 mg/ Sodium (Chloride) 250 mls @ 250 mls/hr IV Q24H [facility] Last Admin: 07/21/18 18:38 Dose: 250 mls/hr Documented by: Ceftriaxone Sodium (Rocephin/Ns 2 Gm/100 Ml) 2 gm in 100 mls @ 200 mls/hr IV Q24H [facility]; Protocol Last Admin: 07/21/18 18:37 Dose: 200 mls/hr Documented by: Sodium Chloride (Nacl 0.45% 1000 Ml) 1,000 mls @ 100 mls/hr IV DIRECT [facility] Last Admin: 07/22/18 07:44 Dose: 100 mls/hr Documented by: Insulin Glargine (Lantus) 15 units SUB-Q QHS [facility] Insulin Human Lispro (Humalog) 5 unit SUB-Q TID [facility] Last Admin: 07/22/18 14:22 Dose: Not Given Documented by: Insulin Human Regular (Humulin R) 0 units SUB-Q ACHS [facility]; Protocol Last Admin: 07/22/18 12:03 Dose: 6 units Documented by: Ondansetron HCl (Zofran) 4 mg IV Q8H PRN PRN Reason: Nausea And Vomiting Ondansetron HCl (Zofran Odt) 8 mg PO Q8HR PRN PRN Reason: Nausea Oxycodone/Acetaminophen (Percocet 5/325) 1 tab PO Q6H PRN PRN Reason: Pain, Moderate (4-6) Pantoprazole Sodium (Protonix) 40 mg IV BID [facility] Last Admin: 07/22/18 15:07 Dose: 40 mg Documented by: Polyethylene Glycol (Miralax 3350) 17 gm PO QDAY PRN PRN Reason: Constipation Last Admin: 07/22/18 15:07 Dose: 17 gm Documented by: Potassium Phos/Sodium Phos (Phos-Nak) 2 each PO Q6HR ONE Stop: 07/22/18 18:01 Senna/Docusate Sodium (Senokot S) 2 tab PO Q12H [facility] Last Admin: 07/22/18 15:07 Dose: 2 tab Documented by: Sodium Chloride (Sodium Chloride Flush Syringe 10 Ml) 10 ml IV BID [facility] Last Admin: 07/22/18 10:45 Dose: Not Given Documented by: Sodium Chloride (Sodium Chloride Flush Syringe 10 Ml) 10 ml IV PRN PRN PRN Reason: LINE FLUSH Exam - Constitutional Vital Signs: Temp Pulse Resp BP Pulse Ox 98.5 F 87 20 124/72 91 07/22/18 12:38 07/22/18 16:17 07/22/18 16:17 07/22/18 14:05 07/22/18 14:05 - Labs CBC & Chem 7: 07/22/18 05:47 07/22/18 05:47 Lab Results: Laboratory Results - last 24 hr 07/20/18 07/21/18 07/21/18 16:05 16:28 21:08 WBC RBC Hgb Hct MCV MCH MCHC RDW Plt Count Add Manual Diff Total Counted Seg Neuts % (Manual) Band Neutrophils % Lymphocytes % (Manual) Reactive Lymphs % (Man) Monocytes % (Manual) Eosinophils % (Manual) Basophils % (Manual) Metamyelocytes % Myelocytes % Promyelocytes % Blast Cells % Nucleated RBC % Seg Neutrophils # Man Band Neutrophils # Lymphocytes # (Manual) Abs React Lymphs (Man) Monocytes # (Manual) Eosinophils # (Manual) Basophils # (Manual) Metamyelocytes # Myelocytes # Promyelocytes # Blast Cells # WBC Morphology Hypersegmented Neuts Hyposegmented Neuts Hypogranular Neuts Smudge Cells Toxic Granulation Toxic Vacuolation Dohle Bodies Pelger-Huet Anomaly Juan Alberto Rods Platelet Estimate Clumped Platelets Plt Clumps, EDTA Large Platelets Giant Platelets Platelet Satelliting Plt Morphology Comment RBC Morphology Dimorphic RBCs Polychromasia Hypochromasia Poikilocytosis Anisocytosis Microcytosis Macrocytosis Spherocytes Pappenheimer Bodies Sickle Cells Target Cells Tear Drop Cells Ovalocytes Helmet Cells Garcia-Castine Bodies [place] Rings [place] Cells Bite Cells Crenated Cell Elliptocytes Acanthocytes (Spur) Rouleaux Hemoglobin C Crystals Schistocytes Malaria parasites Luis Miguel Bodies Hem Pathologist Commnt Sodium Potassium Chloride Carbon Dioxide Anion Gap BUN Creatinine Estimated GFR BUN/Creatinine Ratio Glucose POC Glucose 316 H 131 H Calcium Phosphorus Magnesium PTH Intact Blood Type O POSITIVE Antibody Screen Negative Crossmatch See Detail 07/22/18 07/22/18 07/22/18 05:47 05:47 05:47 WBC 9.5 RBC 2.10 L Hgb 6.1 L Hct 19.0 L* D MCV 90 MCH 29 MCHC 32 RDW 15.3 H Plt Count 220 Add Manual Diff Complete Total Counted 100 Seg Neuts % (Manual) 84.0 H Band Neutrophils % 16.0 Lymphocytes % (Manual) 0 L Reactive Lymphs % (Man) 0 Monocytes % (Manual) 0 Eosinophils % (Manual) 0 Basophils % (Manual) 0 Metamyelocytes % 0 Myelocytes % 0 Promyelocytes % 0 Blast Cells % 0 Nucleated RBC % Not Reportable Seg Neutrophils # Man 8.0 H Band Neutrophils # 1.5 Lymphocytes # (Manual) 0.0 L Abs React Lymphs (Man) 0.0 Monocytes # (Manual) 0.0 Eosinophils # (Manual) 0.0 Basophils # (Manual) 0.0 Metamyelocytes # 0.0 Myelocytes # 0.0 Promyelocytes # 0.0 Blast Cells # 0.0 WBC Morphology Not Reportable Hypersegmented Neuts Not Reportable Hyposegmented Neuts Not Reportable Hypogranular Neuts Not Reportable Smudge Cells Not Reportable Toxic Granulation Not Reportable Toxic Vacuolation Not Reportable Dohle Bodies Not Reportable Pelger-Huet Anomaly Not Reportable Juan Alberto Rods Not Reportable Platelet Estimate Consistent w auto Clumped Platelets Not Reportable Plt Clumps, EDTA Not Reportable Large Platelets Not Reportable Giant Platelets Not Reportable Platelet Satelliting Not Reportable Plt Morphology Comment Not Reportable RBC Morphology Not Reportable Dimorphic RBCs Not Reportable Polychromasia Not Reportable Hypochromasia Not Reportable Poikilocytosis Not Reportable Anisocytosis 1+ Microcytosis Not Reportable Macrocytosis Not Reportable Spherocytes Not Reportable Pappenheimer Bodies Not Reportable Sickle Cells Not Reportable Target Cells Not Reportable Tear Drop Cells Not Reportable Ovalocytes Not Reportable Helmet Cells Not Reportable Garcia-Castine Bodies Not Reportable [place] Rings Not Reportable [place] Cells Few Bite Cells Not Reportable Crenated Cell Not Reportable Elliptocytes Not Reportable Acanthocytes (Spur) Not Reportable Rouleaux Not Reportable Hemoglobin C Crystals Not Reportable Schistocytes Rare Malaria parasites Not Reportable Luis Miguel Bodies Not Reportable Hem Pathologist Commnt No Sodium TNR Potassium 3.6 Chloride 94.2 L Carbon Dioxide TNR Anion Gap TNR BUN 29 H Creatinine 1.6 H Estimated GFR 53 BUN/Creatinine Ratio 18 Glucose 232 H POC Glucose Calcium TNR Phosphorus 1.70 L Magnesium 1.30 L PTH Intact 57.12 Blood Type Antibody Screen Crossmatch 07/22/18 07/22/18 07/22/18 08:09 11:48 16:17 WBC RBC Hgb Hct MCV MCH MCHC RDW Plt Count Add Manual Diff Total Counted Seg Neuts % (Manual) Band Neutrophils % Lymphocytes % (Manual) Reactive Lymphs % (Man) Monocytes % (Manual) Eosinophils % (Manual) Basophils % (Manual) Metamyelocytes % Myelocytes % Promyelocytes % Blast Cells % Nucleated RBC % Seg Neutrophils # Man Band Neutrophils # Lymphocytes # (Manual) Abs React Lymphs (Man) Monocytes # (Manual) Eosinophils # (Manual) Basophils # (Manual) Metamyelocytes # Myelocytes # Promyelocytes # Blast Cells # WBC Morphology Hypersegmented Neuts Hyposegmented Neuts Hypogranular Neuts Smudge Cells Toxic Granulation Toxic Vacuolation Dohle Bodies Pelger-Huet Anomaly Juan Alberto Rods Platelet Estimate Clumped Platelets Plt Clumps, EDTA Large Platelets Giant Platelets Platelet Satelliting Plt Morphology Comment RBC Morphology Dimorphic RBCs Polychromasia Hypochromasia Poikilocytosis Anisocytosis Microcytosis Macrocytosis Spherocytes Pappenheimer Bodies Sickle Cells Target Cells Tear Drop Cells Ovalocytes Helmet Cells Garcia-Castine Bodies [place] Rings Manas Cells Bite Cells Crenated Cell Elliptocytes Acanthocytes (Spur) Rouleaux Hemoglobin C Crystals Schistocytes Malaria parasites Luis Miguel Bodies Hem Pathologist Commnt Sodium Potassium Chloride Carbon Dioxide Anion Gap BUN Creatinine Estimated GFR BUN/Creatinine Ratio Glucose POC Glucose 282 H 336 H 271 H Calcium Phosphorus Magnesium PTH Intact Blood Type Antibody Screen Crossmatch Assessment and Plan Pt seen and examined. Profound drop in H/H perplexing in light of no evidence of emanuel GI blood loss. DDx - Spurious vs ACD vs blood loss - GI vs retroperitoneal, etc. No evidence of blood loss. Doubt iron deficiency. Plan as noted. May need Hematology evaluation.
[2018-07-22 17:32] LABS: Hemoglobin 8.2 gm/dl (11.8-15.2)
[2018-07-22 17:56] LABS: Iron 11 ug/dL (49-181); Total Iron Binding Capacity 182 mcg/dL (250-450)
[2018-07-22] MEDS ORDERED: PHOS-NAK PO ONE (18:00)
[2018-07-22] MEDS: ROCEPHIN/NS 2 GM/100 ML 2 GM/100 ML BAG IV SCH (18:08)
--- NOTE | 2018-07-22 18:21 | Consultation ---
History of Present Illness Consult date: 07/22/18 Reason for consult: dyspnea, cough, pneumonia History of present illness: Pulmonary and critical care consultation Dr. Flores thank you for asking us to participate in the care of this patient. 62-year-old AAM with pmh of Htn and IDDM presenting with chief complaint of cough and altered mental status. As per at bedside patient has been coughing for 1 week and occasionally blood tinged sputum while coughing.Also slightly confused.Poor Historian.SOB and low grade fever present.Chest xray reported bilateral pneumonia. Patient has history of hypertension, diabetes and renal failure.No history of smoking, alcohol or drug abuse.No known drug allergies. works with [employer]. and has 2 children. Patient awake and resting on 2 litres O2. O2 saturation 94%.No acute respiratory distress. Denies chest pain or shortness of breath at this time.Patient afebrile to day and has no leukocytosis. Patient presently on zithromax and ceftrioxone. Past History Past Medical History: diabetes, hypertension, renal failure Past Surgical History: Other (throat CA s/p surgery, xrt, chemo) Social history: denies: smoking, alcohol abuse Medications and Allergies Allergies Allergy/AdvReac Type Severity Reaction Status Date / Time No Known Allergies Allergy Unverified 01/01/17 10:41 Home Medications Medication Instructions Recorded Confirmed Last Taken Type Insulin Aspart [NovoLOG 100 See Protocol SQ ACHS 07/20/18 07/20/18 07/19/18 History UNITS/ML VIAL] Insulin Glargine,Hum.rec.anlog 30 units SQ HS 07/20/18 07/20/18 07/19/18 History [Lantus] Lisinopril/Hydrochlorothiazide 1 tab PO DAILY 07/20/18 07/20/18 07/20/18 History [Zestoretic 10-12.5 mg Tablet] Active Meds: Active Medications Acetaminophen (Tylenol) 650 mg PO Q4H PRN PRN Reason: Pain MILD(1-3)/Fever >100.5/PEDROZA Albuterol (Proventil) 2.5 mg IH Q4HRT PRN PRN Reason: Shortness Of Breath Albuterol/Ipratropium (Duoneb *Not For Prn Use*) 1 ampul IH QIDRT NAEEM Last Admin: 07/22/18 16:06 Dose: 1 ampul Documented by: Amlodipine Besylate (Norvasc) 10 mg PO QDAY [facility] Last Admin: 07/22/18 12:02 Dose: 10 mg Documented by: Carvedilol (Coreg) 12.5 mg PO BID [facility] Last Admin: 07/22/18 12:03 Dose: 12.5 mg Documented by: Hydromorphone HCl (Dilaudid) 0.5 mg IV Q3H PRN PRN Reason: Pain , Severe (7-10) Azithromycin 500 mg/ Sodium (Chloride) 250 mls @ 250 mls/hr IV Q24H [facility] Last Admin: 07/21/18 18:38 Dose: 250 mls/hr Documented by: Ceftriaxone Sodium (Rocephin/Ns 2 Gm/100 Ml) 2 gm in 100 mls @ 200 mls/hr IV Q24H [facility]; Protocol Last Admin: 07/22/18 18:08 Dose: 200 mls/hr Documented by: Sodium Chloride (Nacl 0.45% 1000 Ml) 1,000 mls @ 100 mls/hr IV DIRECT [facility] Last Admin: 07/22/18 07:44 Dose: 100 mls/hr Documented by: Insulin Glargine (Lantus) 15 units SUB-Q QHS [facility] Insulin Human Lispro (Humalog) 5 unit SUB-Q TID [facility] Last Admin: 07/22/18 14:22 Dose: Not Given Documented by: Insulin Human Regular (Humulin R) 0 units SUB-Q ACHS [facility]; Protocol Last Admin: 07/22/18 16:59 Dose: 4 units Documented by: Ondansetron HCl (Zofran) 4 mg IV Q8H PRN PRN Reason: Nausea And Vomiting Ondansetron HCl (Zofran Odt) 8 mg PO Q8HR PRN PRN Reason: Nausea Oxycodone/Acetaminophen (Percocet 5/325) 1 tab PO Q6H PRN PRN Reason: Pain, Moderate (4-6) Pantoprazole Sodium (Protonix) 40 mg IV BID [facility] Last Admin: 07/22/18 15:07 Dose: 40 mg Documented by: Polyethylene Glycol (Miralax [id number]) 17 gm PO QDAY PRN PRN Reason: Constipation Last Admin: 07/22/18 15:07 Dose: 17 gm Documented by: Senna/Docusate Sodium (Senokot S) 2 tab PO Q12H [facility] Last Admin: 07/22/18 15:07 Dose: 2 tab Documented by: Sodium Chloride (Sodium Chloride Flush Syringe 10 Ml) 10 ml IV BID [facility] Last Admin: 07/22/18 10:45 Dose: Not Given Documented by: Sodium Chloride (Sodium Chloride Flush Syringe 10 Ml) 10 ml IV PRN PRN PRN Reason: LINE FLUSH Review of Systems All systems: negative Physical Examination Vital signs: Vital Signs Pulse Resp Pulse Ox 77 23 90 07/20/18 15:49 07/20/18 15:49 07/20/18 15:49 General appearance: no acute distress, alert Eyes: non-icteric ENT: oropharynx moist Neck: supple, no JVD Ascultation: Bilateral: rhonchi Cardiovascular: regular rate and rhythm Gastrointestinal: normoactive bowel sounds, soft, non-tender Integumentary: normal Extremities: no cyanosis, no edema Musculoskeletal: no deformities Gait: other (Can not assess at this time.) non-focal exam, pupils equal and round, CN II-XII normal depressed Results - Laboratory Findings CBC and BMP: 07/22/18 17:00 07/22/18 05:47 PT/INR, D-dimer PT 13.6 Sec. (12.2-14.9) 07/20/18 16:03 INR 0.98 (0.87-1.13) 07/20/18 16:03 Abnormal lab findings: Abnormal Labs 07/20/18 07/20/18 07/20/18 15:55 16:03 16:03 WBC RBC 5.29 H Hgb 15.3 H Hct 46.1 H RDW Lymph % (Auto) 5.9 L Lymph # 0.4 L Seg Neutrophils % 89.9 H Seg Neuts % (Manual) Lymphocytes % (Manual) Seg Neutrophils # Seg Neutrophils # Man Lymphocytes # (Manual) APTT 22.2 L VBG pH Chloride Carbon Dioxide BUN Creatinine Glucose POC Glucose < 40 L Hemoglobin A1c Calcium Phosphorus Magnesium Iron TIBC Total Creatine Kinase CK-MB (CK-2) Troponin T Total Protein Albumin Crossmatch 07/20/18 07/20/18 07/20/18 16:03 16:03 16:05 WBC RBC Hgb Hct RDW Lymph % (Auto) Lymph # Seg Neutrophils % Seg Neuts % (Manual) Lymphocytes % (Manual) Seg Neutrophils # Seg Neutrophils # Man Lymphocytes # (Manual) APTT VBG pH 7.312 L Chloride Carbon Dioxide BUN 39 H Creatinine 2.5 H Glucose 31 L* POC Glucose Hemoglobin A1c 11.4 H Calcium Phosphorus Magnesium Iron TIBC Total Creatine Kinase 871 H CK-MB (CK-2) 6.8 H Troponin T 0.036 H Total Protein Albumin 3.4 L Crossmatch 07/20/18 07/20/18 07/20/18 16:05 16:20 18:17 WBC RBC Hgb Hct RDW Lymph % (Auto) Lymph # Seg Neutrophils % Seg Neuts % (Manual) Lymphocytes % (Manual) Seg Neutrophils # Seg Neutrophils # Man Lymphocytes # (Manual) APTT VBG pH Chloride Carbon Dioxide BUN Creatinine Glucose POC Glucose 181 H 53 L Hemoglobin A1c Calcium Phosphorus Magnesium Iron TIBC Total Creatine Kinase CK-MB (CK-2) Troponin T Total Protein Albumin Crossmatch See Detail 07/20/18 07/20/18 07/21/18 20:17 21:34 00:52 WBC RBC Hgb Hct RDW Lymph % (Auto) Lymph # Seg Neutrophils % Seg Neuts % (Manual) Lymphocytes % (Manual) Seg Neutrophils # Seg Neutrophils # Man Lymphocytes # (Manual) APTT VBG pH Chloride Carbon Dioxide BUN Creatinine Glucose POC Glucose 296 H 281 H Hemoglobin A1c Calcium Phosphorus Magnesium Iron TIBC Total Creatine Kinase CK-MB (CK-2) Troponin T 0.036 H D Total Protein Albumin Crossmatch 07/21/18 07/21/18 07/21/18 05:23 06:50 06:50 WBC 12.9 H RBC 2.99 L Hgb 8.4 L D Hct 26.0 L D RDW Lymph % (Auto) Lymph # Seg Neutrophils % Seg Neuts % (Manual) Lymphocytes % (Manual) Seg Neutrophils # 11.5 H Seg Neutrophils # Man 8.0 H Lymphocytes # (Manual) APTT VBG pH Chloride Carbon Dioxide 21 L BUN 38 H Creatinine 2.2 H Glucose 250 H POC Glucose 244 H Hemoglobin A1c Calcium 8.3 L Phosphorus Magnesium Iron TIBC Total Creatine Kinase CK-MB (CK-2) Troponin T Total Protein 6.1 L Albumin 2.9 L Crossmatch 07/21/18 07/21/18 07/21/18 10:49 12:16 16:28 WBC 13.9 H RBC 2.99 L Hgb 8.5 L Hct 25.9 L RDW Lymph % (Auto) Lymph # Seg Neutrophils % Seg Neuts % (Manual) Lymphocytes % (Manual) Seg Neutrophils # Seg Neutrophils # Man Lymphocytes # (Manual) APTT VBG pH Chloride Carbon Dioxide BUN Creatinine Glucose POC Glucose 406 H 316 H Hemoglobin A1c Calcium Phosphorus Magnesium Iron TIBC Total Creatine Kinase CK-MB (CK-2) Troponin T Total Protein Albumin Crossmatch 07/21/18 07/22/18 07/22/18 21:08 05:47 05:47 WBC RBC 2.10 L Hgb 6.1 L Hct 19.0 L* D RDW 15.3 H Lymph % (Auto) Lymph # Seg Neutrophils % Seg Neuts % (Manual) 84.0 H Lymphocytes % (Manual) 0 L Seg Neutrophils # Seg Neutrophils # Man 8.0 H Lymphocytes # (Manual) 0.0 L APTT VBG pH Chloride 94.2 L Carbon Dioxide BUN 29 H Creatinine 1.6 H Glucose 232 H POC Glucose 131 H Hemoglobin A1c Calcium Phosphorus 1.70 L Magnesium 1.30 L Iron TIBC Total Creatine Kinase CK-MB (CK-2) Troponin T Total Protein Albumin Crossmatch 07/22/18 07/22/18 07/22/18 08:09 11:48 16:17 WBC RBC Hgb Hct RDW Lymph % (Auto) Lymph # Seg Neutrophils % Seg Neuts % (Manual) Lymphocytes % (Manual) Seg Neutrophils # Seg Neutrophils # Man Lymphocytes # (Manual) APTT VBG pH Chloride Carbon Dioxide BUN Creatinine Glucose POC Glucose 282 H 336 H 271 H Hemoglobin A1c Calcium Phosphorus Magnesium Iron TIBC Total Creatine Kinase CK-MB (CK-2) Troponin T Total Protein Albumin Crossmatch 07/22/18 07/22/18 17:00 17:05 WBC RBC Hgb 8.2 L Hct 25.0 L D RDW Lymph % (Auto) Lymph # Seg Neutrophils % Seg Neuts % (Manual) Lymphocytes % (Manual) Seg Neutrophils # Seg Neutrophils # Man Lymphocytes # (Manual) APTT VBG pH Chloride Carbon Dioxide BUN Creatinine Glucose POC Glucose Hemoglobin A1c Calcium Phosphorus Magnesium Iron 11 L TIBC 182 L Total Creatine Kinase CK-MB (CK-2) Troponin T Total Protein Albumin Crossmatch - Diagnostic Findings Chest x-ray: report reviewed (Bilateral pneumonia.), image reviewed Assessment and Plan 2-year-old AAM with pmh of Htn and IDDM presenting with chief complaint of cough and altered mental status. As per at bedside patient has been coughing for 1 week and occasionally blood tinged sputum while coughing.Also slightly confused.Poor Historian.SOB and low grade fever present.Chest xray reported bilateral pneumonia. Patient has history of hypertension, diabetes and renal failure.No history of smoking, alcohol or drug abuse,No known drug allergies. works with [employer]. and has 2 children. Patient awake and resting on 2 litres O2. O2 saturation 94%.No acute respiratory distress. Denies chest pain or shortness of breath at this time.Patient afebrile to day and has no leukocytosis. Patient presently on zithromax and ceftrioxone. - Patient Problems (1) Bilateral pneumonia Current Visit: Yes Status: Acute Qualifiers: Lung location: upper lobe of lung Plan to address problem: Patient is on ceftrioxone and zithromax. (2) Acute encephalopathy Current Visit: Yes Status: Acute Plan to address problem: Management as per primary care. (3) Hypoglycemia Current Visit: Yes Status: Acute Plan to address problem: To days blood sugur 298. Management as per primary care. (4) HTN (hypertension) Current Visit: Yes Status: Chronic Qualifiers: Hypertension type: essential hypertension Qualified Code(s): I10 - Essential (primary) hypertension Plan to address problem: Management as per primary care. (5) IDDM (insulin dependent diabetes mellitus) Current Visit: Yes Status: Chronic Plan to address problem: Management as per primary care.
[2018-07-22] MEDS: ZITHROMAX 500 MG in NACL 0.9% 250ML 250 ML IV SCH (18:53)
[2018-07-22] MEDS: LANTUS SUB-Q SCH (22:24)
[2018-07-23] MEDS: SENOKOT S PO SCH ×2 (05:34→14:04)
[2018-07-23 06:48] LABS: Calcium 8.5 mg/dL (8.4-10.2)
[2018-07-23] MEDS: DUONEB *Not for PRN Use IH SCH ×4 (07:51→19:59)
[2018-07-23] MEDS: HumuLIN R SUB-Q SCH ×4 (08:39→21:11)
[2018-07-23] MEDS: HumaLOG SUB-Q SCH ×3 (08:40→21:10)
--- NOTE | 2018-07-23 09:35 | Progress Note ---
Assessment and Plan 1. Acute kidney injury: Vasomotor AISHA superimposed on CKD stage 3 in the setting of volume depletion. Continue IV fluids. Urine studies pending. Renal US negative for hydro. Increase in the creatinine level noted. Monitor renal function. Renal prognosis is guarded. Avoid nephrotoxic agents. Meds dosage based on GFR. 2. FEN: IV fluids. Monitor lytes. 3. Bilateral PNA. 4. Hypoxic respiratory failure: 2/2 PNA. 5. Acute encephalopathy: Improved. 6. Anemia: S/p PRBC. 7. DM type 2. 8. HTN. Subjective Date of service: 07/23/18 Interval history: Patient was seen and examined at the bedside. Patient is doing ok. Objective - Vital Signs Vital signs: Vital Signs - 12hr 07/22/18 07/22/18 07/23/18 22:27 23:45 04:08 Temperature 99.1 F 98.5 F Pulse Rate 86 91 H 83 Pulse Rate [ Anterior Bilateral Throughout] Respiratory 12 15 Rate Respiratory Rate [Anterior Bilateral Throughout] Blood Pressure 110/65 112/64 113/66 O2 Sat by Pulse 97 97 Oximetry 07/23/18 07/23/18 07/23/18 07:52 08:25 08:39 Temperature Pulse Rate 90 Pulse Rate [ 85 Anterior Bilateral Throughout] Respiratory 19 18 Rate Respiratory 18 Rate [Anterior Bilateral Throughout] Blood Pressure 137/71 O2 Sat by Pulse 100 Oximetry 07/23/18 08:40 Temperature 98.5 F Pulse Rate Pulse Rate [ Anterior Bilateral Throughout] Respiratory Rate Respiratory Rate [Anterior Bilateral Throughout] Blood Pressure O2 Sat by Pulse Oximetry - General Appearance General appearance: well-developed, appears stated age, other (not in distress) EENT: ATNC, PERRL, mucous membranes moist, hearing intact, vision intact Neck: supple Respiratory: Present: Clear to Ascultation Cardiology: regular, S1S2, no murmurs Gastrointestinal: normoactive bowel sounds, no tenderness, no distended Integumentary: no rash, warm and dry Neurologic: no focal deficit, no asterixis, alert and oriented x3 Musculoskeletal: other (no edema) - Lab 07/23/18 10:04 07/23/18 05:05 Most recent lab results Calcium 8.5 mg/dL (8.4-10.2) 07/23/18 05:05 Phosphorus 2.90 mg/dL (2.5-4.5) D 07/23/18 05:05 Magnesium 2.60 mg/dL (1.7-2.3) H 07/23/18 05:05 Medications & Allergies - Medications Allergies/Adverse Reactions: Allergies No Known Allergies Allergy (Unverified 01/01/17 10:41) Home Medications: Home Medications Medication Instructions Recorded Confirmed Last Taken Type Insulin Aspart [NovoLOG 100 See Protocol SQ ACHS 07/20/18 07/20/18 07/19/18 History UNITS/ML VIAL] Insulin Glargine,Hum.rec.anlog 30 units SQ HS 07/20/18 07/20/18 07/19/18 History [Lantus] Lisinopril/Hydrochlorothiazide 1 tab PO DAILY 07/20/18 07/20/18 07/20/18 History [Zestoretic 10-12.5 mg Tablet] Active Medications: Generic Name Dose Route Start Last Admin Trade Name Freq PRN Reason Stop Dose Admin Acetaminophen 650 mg 07/20/18 18:31 Tylenol PO Q4H PRN Pain MILD(1-3)/Fever >100.5/PEDROZA Albuterol 2.5 mg 07/20/18 18:34 Proventil IH Q4HRT PRN Shortness Of Breath Albuterol/Ipratropium 1 ampul 07/20/18 20:00 07/23/18 07:51 Duoneb *Not For Prn Use* IH 1 ampul QIDRT NAEEM Administration Amlodipine Besylate 10 mg 07/21/18 18:00 07/22/18 12:02 Norvasc PO 10 mg QDAY NAEEM Administration Carvedilol 12.5 mg 07/21/18 11:00 07/22/18 22:27 Coreg PO 12.5 mg BID NAEEM Administration Hydromorphone HCl 0.5 mg 07/20/18 18:31 Dilaudid IV Q3H PRN Pain , Severe (7-10) Azithromycin 500 mg/ Sodium 250 mls @ 250 mls/hr 07/21/18 18:00 07/22/18 18:53 Chloride IV 250 mls/hr Q24H NAEEM Administration Ceftriaxone Sodium 2 gm in 100 mls @ 200 mls/hr 07/21/18 18:00 07/22/18 18:08 Rocephin/Ns 2 Gm/100 Ml IV 200 mls/hr Q24H NAEEM Administration Protocol Sodium Chloride 1,000 mls @ 100 mls/hr 07/21/18 16:00 07/22/18 22:41 Nacl 0.45% 1000 Ml IV 100 mls/hr DIRECT NAEEM Administration Insulin Glargine 15 units 07/22/18 12:33 07/22/18 22:24 Lantus SUB-Q 15 units QHS NAEEM Administration Insulin Human Lispro 5 unit 07/22/18 14:00 07/23/18 08:40 Humalog SUB-Q 5 unit TID NAEEM Administration Insulin Human Regular 0 units 07/21/18 12:32 07/23/18 08:39 Humulin R SUB-Q 3 units ACHS NAEEM Administration Protocol Ondansetron HCl 4 mg 07/20/18 18:31 Zofran IV Q8H PRN Nausea And Vomiting Ondansetron HCl 8 mg 07/20/18 18:37 Zofran Odt PO Q8HR PRN Nausea Oxycodone/Acetaminophen 1 tab 07/20/18 18:31 Percocet 5/325 PO Q6H PRN Pain, Moderate (4-6) Pantoprazole Sodium 40 mg 07/22/18 15:00 07/22/18 22:26 Protonix IV 40 mg BID NAEEM Administration Polyethylene Glycol 17 gm 07/22/18 14:36 07/22/18 15:07 Miralax 3350 PO 17 gm QDAY PRN Administration Constipation Senna/Docusate Sodium 2 tab 07/22/18 15:00 07/23/18 05:34 Senokot S PO Not Given Q12H NAEEM Sodium Chloride 10 ml 07/20/18 22:00 07/22/18 22:28 Sodium Chloride Flush Syringe 10 Ml IV 10 ml BID NAEEM Administration Sodium Chloride 10 ml 07/20/18 18:31 Sodium Chloride Flush Syringe 10 Ml IV PRN PRN LINE FLUSH
[2018-07-23] MEDS: PROTONIX IV SCH ×2 (09:47→21:07)
[2018-07-23] MEDS: NORVASC PO SCH (09:47)
[2018-07-23] MEDS: COREG PO SCH ×2 (09:48→21:07)
[2018-07-23] MEDS: SODIUM CHLORIDE FLUSH SYRINGE 10 ML IV SCH ×2 (09:55→21:37)
[2018-07-23 10:32] LABS: Hematocrit 24.8 % (35.5-45.6); Hemoglobin 8.3 gm/dl (11.8-15.2); Mean Corpuscular HGB Conc 33 % (32-34); Mean Corpuscular Volume 87 fl (84-94); Platelet Count 322 K/mm3 (140-440); Red Blood Count 2.86 M/mm3 (3.65-5.03); Red Cell Distribution Width 15.2 % (13.2-15.2)
--- NOTE | 2018-07-23 12:14 | Gastroenterology Progress Note ---
<MICHELLE MCKEON - Last Filed: 07/23/18 12:17> Assessment and Plan 1.acute on chronic anemia -stool occult negative -iron 11, TIBC 182, ferritin 222.3 -haptoglobin pending -H/H 8.3/24.8-stable -continue to monitor H/H and transfuse as needed -no active signs of bleeding (pt reports scant amount of blood tinged sputum/emesis over the past week; rectal yesterday with light brown stool) -currently HD stable -last colonoscopy 12/2016 showed transverse polyp, diverticulosis in sigmoid, and internal hemorrhoids -etiology-likely multifactorial (could possible have chronic esophagitis with oozing from prior XRT as below?) -no plan for scope at this time unless overt bleeding develops given lack of clinical evidence of significant GI bleeding -start on iron supplement -continue PPI and supportive care -consider EGD inpt vs outpt based on progress (if drop in H/H reoccurs will do as inpt) -further recommendations to follow 2.Hx of neck cancer -s/p surgery/XRT/chemo with mild chronic dysphagia -currently tolerating diet 3.bilateral pneumonia 4.CKD stage 3 5.Mildly elevated troponin -Stress test cancelled by cardiology due to anemia 6.DM 7.Hypertension Subjective Date of service: 07/23/18 Principal diagnosis: anemia Interval history: Patient sitting in bedside chair this am with at bedside. Reports no active signs of bleeding overnight or this am. Denies abd pain or N/V. Objective - Constitutional Vitals: Temp Pulse Resp BP Pulse Ox 98.4 F 87 18 133/79 96 07/23/18 11:51 07/23/18 11:50 07/23/18 11:50 07/23/18 11:50 07/23/18 11:50 General appearance: no acute distress - Respiratory Respiratory: bilateral: diminished - Cardiovascular Rhythm: regular - Gastrointestinal General gastrointestinal: Present: soft, non-tender, non-distended, normal bowel sounds - Neurologic Neurological: alert and oriented x3 - Labs CBC & Chem 7: 07/23/18 10:04 07/23/18 05:05 Labs: Laboratory Results - last 24 hr 07/20/18 07/22/18 07/22/18 16:05 05:47 11:48 WBC 9.5 RBC 2.10 L Hgb 6.1 L Hct 19.0 L* D MCV 90 MCH 29 MCHC 32 RDW 15.3 H Plt Count 220 Add Manual Diff Complete Total Counted 100 Seg Neuts % (Manual) 84.0 H Band Neutrophils % 16.0 Lymphocytes % (Manual) 0 L Reactive Lymphs % (Man) 0 Monocytes % (Manual) 0 Eosinophils % (Manual) 0 Basophils % (Manual) 0 Metamyelocytes % 0 Myelocytes % 0 Promyelocytes % 0 Blast Cells % 0 Nucleated RBC % Not Reportable Seg Neutrophils # Man 8.0 H Band Neutrophils # 1.5 Lymphocytes # (Manual) 0.0 L Abs React Lymphs (Man) 0.0 Monocytes # (Manual) 0.0 Eosinophils # (Manual) 0.0 Basophils # (Manual) 0.0 Metamyelocytes # 0.0 Myelocytes # 0.0 Promyelocytes # 0.0 Blast Cells # 0.0 WBC Morphology Not Reportable Hypersegmented Neuts Not Reportable Hyposegmented Neuts Not Reportable Hypogranular Neuts Not Reportable Smudge Cells Not Reportable Toxic Granulation Not Reportable Toxic Vacuolation Not Reportable Dohle Bodies Not Reportable Pelger-Huet Anomaly Not Reportable Juan Alberto Rods Not Reportable Platelet Estimate Consistent w auto Clumped Platelets Not Reportable Plt Clumps, EDTA Not Reportable Large Platelets Not Reportable Giant Platelets Not Reportable Platelet Satelliting Not Reportable Plt Morphology Comment Not Reportable RBC Morphology Not Reportable Dimorphic RBCs Not Reportable Polychromasia Not Reportable Hypochromasia Not Reportable Poikilocytosis Not Reportable Anisocytosis 1+ Microcytosis Not Reportable Macrocytosis Not Reportable Spherocytes Not Reportable Pappenheimer Bodies Not Reportable Sickle Cells Not Reportable Target Cells Not Reportable Tear Drop Cells Not Reportable Ovalocytes Not Reportable Helmet Cells Not Reportable Garcia-Custar Bodies Not Reportable [place] Rings Not Reportable [place] Cells Few Bite Cells Not Reportable Crenated Cell Not Reportable Elliptocytes Not Reportable Acanthocytes (Spur) Not Reportable Rouleaux Not Reportable Hemoglobin C Crystals Not Reportable Schistocytes Rare Malaria parasites Not Reportable Luis Miguel Bodies Not Reportable Hem Pathologist Commnt No Sodium Potassium Chloride Carbon Dioxide Anion Gap BUN Creatinine Estimated GFR BUN/Creatinine Ratio Glucose POC Glucose 336 H Calcium Phosphorus Magnesium Iron TIBC Ferritin Blood Type O POSITIVE Antibody Screen Negative Crossmatch See Detail 07/22/18 07/22/18 07/22/18 16:17 17:00 17:05 WBC RBC Hgb 8.2 L Hct 25.0 L D MCV MCH MCHC RDW Plt Count Add Manual Diff Total Counted Seg Neuts % (Manual) Band Neutrophils % Lymphocytes % (Manual) Reactive Lymphs % (Man) Monocytes % (Manual) Eosinophils % (Manual) Basophils % (Manual) Metamyelocytes % Myelocytes % Promyelocytes % Blast Cells % Nucleated RBC % Seg Neutrophils # Man Band Neutrophils # Lymphocytes # (Manual) Abs React Lymphs (Man) Monocytes # (Manual) Eosinophils # (Manual) Basophils # (Manual) Metamyelocytes # Myelocytes # Promyelocytes # Blast Cells # WBC Morphology Hypersegmented Neuts Hyposegmented Neuts Hypogranular Neuts Smudge Cells Toxic Granulation Toxic Vacuolation Dohle Bodies Pelger-Huet Anomaly Juan Alberto Rods Platelet Estimate Clumped Platelets Plt Clumps, EDTA Large Platelets Giant Platelets Platelet Satelliting Plt Morphology Comment RBC Morphology Dimorphic RBCs Polychromasia Hypochromasia Poikilocytosis Anisocytosis Microcytosis Macrocytosis Spherocytes Pappenheimer Bodies Sickle Cells Target Cells Tear Drop Cells Ovalocytes Helmet Cells Garcia-Custar Bodies [place] Rings Manas Cells Bite Cells Crenated Cell Elliptocytes Acanthocytes (Spur) Rouleaux Hemoglobin C Crystals Schistocytes Malaria parasites Luis Miguel Bodies Hem Pathologist Commnt Sodium Potassium Chloride Carbon Dioxide Anion Gap BUN Creatinine Estimated GFR BUN/Creatinine Ratio Glucose POC Glucose 271 H Calcium Phosphorus Magnesium Iron 11 L TIBC 182 L Ferritin Blood Type Antibody Screen Crossmatch 07/22/18 07/22/18 07/22/18 17:05 20:59 23:49 WBC RBC Hgb Hct MCV MCH MCHC RDW Plt Count Add Manual Diff Total Counted Seg Neuts % (Manual) Band Neutrophils % Lymphocytes % (Manual) Reactive Lymphs % (Man) Monocytes % (Manual) Eosinophils % (Manual) Basophils % (Manual) Metamyelocytes % Myelocytes % Promyelocytes % Blast Cells % Nucleated RBC % Seg Neutrophils # Man Band Neutrophils # Lymphocytes # (Manual) Abs React Lymphs (Man) Monocytes # (Manual) Eosinophils # (Manual) Basophils # (Manual) Metamyelocytes # Myelocytes # Promyelocytes # Blast Cells # WBC Morphology Hypersegmented Neuts Hyposegmented Neuts Hypogranular Neuts Smudge Cells Toxic Granulation Toxic Vacuolation Dohle Bodies Pelger-Huet Anomaly Juan Alberto Rods Platelet Estimate Clumped Platelets Plt Clumps, EDTA Large Platelets Giant Platelets Platelet Satelliting Plt Morphology Comment RBC Morphology Dimorphic RBCs Polychromasia Hypochromasia Poikilocytosis Anisocytosis Microcytosis Macrocytosis Spherocytes Pappenheimer Bodies Sickle Cells Target Cells Tear Drop Cells Ovalocytes Helmet Cells Garcia-Custar Bodies [place] Rings Manas Cells Bite Cells Crenated Cell Elliptocytes Acanthocytes (Spur) Rouleaux Hemoglobin C Crystals Schistocytes Malaria parasites Luis Miguel Bodies Hem Pathologist Commnt Sodium Potassium Chloride Carbon Dioxide Anion Gap BUN Creatinine Estimated GFR BUN/Creatinine Ratio Glucose POC Glucose 380 H 372 H Calcium Phosphorus Magnesium Iron TIBC Ferritin 222.3 Blood Type Antibody Screen Crossmatch 07/23/18 07/23/18 07/23/18 02:41 05:05 07:45 WBC RBC Hgb Hct MCV MCH MCHC RDW Plt Count Add Manual Diff Total Counted Seg Neuts % (Manual) Band Neutrophils % Lymphocytes % (Manual) Reactive Lymphs % (Man) Monocytes % (Manual) Eosinophils % (Manual) Basophils % (Manual) Metamyelocytes % Myelocytes % Promyelocytes % Blast Cells % Nucleated RBC % Seg Neutrophils # Man Band Neutrophils # Lymphocytes # (Manual) Abs React Lymphs (Man) Monocytes # (Manual) Eosinophils # (Manual) Basophils # (Manual) Metamyelocytes # Myelocytes # Promyelocytes # Blast Cells # WBC Morphology Hypersegmented Neuts Hyposegmented Neuts Hypogranular Neuts Smudge Cells Toxic Granulation Toxic Vacuolation Dohle Bodies Pelger-Huet Anomaly Juan Alberto Rods Platelet Estimate Clumped Platelets Plt Clumps, EDTA Large Platelets Giant Platelets Platelet Satelliting Plt Morphology Comment RBC Morphology Dimorphic RBCs Polychromasia Hypochromasia Poikilocytosis Anisocytosis Microcytosis Macrocytosis Spherocytes Pappenheimer Bodies Sickle Cells Target Cells Tear Drop Cells Ovalocytes Helmet Cells Garcia-Custar Bodies [place] Rings Manas Cells Bite Cells Crenated Cell Elliptocytes Acanthocytes (Spur) Rouleaux Hemoglobin C Crystals Schistocytes Malaria parasites Luis Miguel Bodies Hem Pathologist Commnt Sodium 136 L Potassium 4.8 D Chloride 103.2 Carbon Dioxide 22 Anion Gap 16 BUN 39 H Creatinine 2.2 H Estimated GFR 37 BUN/Creatinine Ratio 18 Glucose 260 H POC Glucose 279 H 239 H Calcium 8.5 Phosphorus 2.90 D Magnesium 2.60 H Iron TIBC Ferritin Blood Type Antibody Screen Crossmatch 07/23/18 07/23/18 10:04 11:40 WBC 10.7 RBC 2.86 L Hgb 8.3 L Hct 24.8 L MCV 87 MCH 29 MCHC 33 RDW 15.2 Plt Count 322 Add Manual Diff Total Counted Seg Neuts % (Manual) Band Neutrophils % Lymphocytes % (Manual) Reactive Lymphs % (Man) Monocytes % (Manual) Eosinophils % (Manual) Basophils % (Manual) Metamyelocytes % Myelocytes % Promyelocytes % Blast Cells % Nucleated RBC % Seg Neutrophils # Man Band Neutrophils # Lymphocytes # (Manual) Abs React Lymphs (Man) Monocytes # (Manual) Eosinophils # (Manual) Basophils # (Manual) Metamyelocytes # Myelocytes # Promyelocytes # Blast Cells # WBC Morphology Hypersegmented Neuts Hyposegmented Neuts Hypogranular Neuts Smudge Cells Toxic Granulation Toxic Vacuolation Dohle Bodies Pelger-Huet Anomaly Juan Alberto Rods Platelet Estimate Clumped Platelets Plt Clumps, EDTA Large Platelets Giant Platelets Platelet Satelliting Plt Morphology Comment RBC Morphology Dimorphic RBCs Polychromasia Hypochromasia Poikilocytosis Anisocytosis Microcytosis Macrocytosis Spherocytes Pappenheimer Bodies Sickle Cells Target Cells Tear Drop Cells Ovalocytes Helmet Cells Garcia-Custar Bodies [place] Rings Manas Cells Bite Cells Crenated Cell Elliptocytes Acanthocytes (Spur) Rouleaux Hemoglobin C Crystals Schistocytes Malaria parasites Luis Miguel Bodies Hem Pathologist Commnt Sodium Potassium Chloride Carbon Dioxide Anion Gap BUN Creatinine Estimated GFR BUN/Creatinine Ratio Glucose POC Glucose 191 H Calcium Phosphorus Magnesium Iron TIBC Ferritin Blood Type Antibody Screen Crossmatch <RUSH FALL R - Last Filed: 07/23/18 14:22> Assessment and Plan Pt without complaints. Doing well. Stool negative for occult blood. No plans for endoscopy at present, saúl in light of pneumonia. May do outpatient EGD because of blood intermittently in emesis/sputum, likely related to XRT changes. Objective - Constitutional Vitals: Temp Pulse Resp BP Pulse Ox 98.4 F 87 18 133/79 96 07/23/18 11:51 07/23/18 11:50 07/23/18 11:50 07/23/18 11:50 07/23/18 11:50 - Labs CBC & Chem 7: 07/23/18 10:04 07/23/18 05:05 Labs: Laboratory Results - last 24 hr 07/20/18 07/22/18 07/22/18 16:05 16:17 17:00 WBC RBC Hgb 8.2 L Hct 25.0 L D MCV MCH MCHC RDW Plt Count Sodium Potassium Chloride Carbon Dioxide Anion Gap BUN Creatinine Estimated GFR BUN/Creatinine Ratio Glucose POC Glucose 271 H Calcium Phosphorus Magnesium Iron TIBC Ferritin Blood Type O POSITIVE Antibody Screen Negative Crossmatch See Detail 07/22/18 07/22/18 07/22/18 17:05 17:05 20:59 WBC RBC Hgb Hct MCV MCH MCHC RDW Plt Count Sodium Potassium Chloride Carbon Dioxide Anion Gap BUN Creatinine Estimated GFR BUN/Creatinine Ratio Glucose POC Glucose 380 H Calcium Phosphorus Magnesium Iron 11 L TIBC 182 L Ferritin 222.3 Blood Type Antibody Screen Crossmatch 07/22/18 07/23/18 07/23/18 23:49 02:41 05:05 WBC RBC Hgb Hct MCV MCH MCHC RDW Plt Count Sodium 136 L Potassium 4.8 D Chloride 103.2 Carbon Dioxide 22 Anion Gap 16 BUN 39 H Creatinine 2.2 H Estimated GFR 37 BUN/Creatinine Ratio 18 Glucose 260 H POC Glucose 372 H 279 H Calcium 8.5 Phosphorus 2.90 D Magnesium 2.60 H Iron TIBC Ferritin Blood Type Antibody Screen Crossmatch 07/23/18 07/23/18 07/23/18 07:45 10:04 11:40 WBC 10.7 RBC 2.86 L Hgb 8.3 L Hct 24.8 L MCV 87 MCH 29 MCHC 33 RDW 15.2 Plt Count 322 Sodium Potassium Chloride Carbon Dioxide Anion Gap BUN Creatinine Estimated GFR BUN/Creatinine Ratio Glucose POC Glucose 239 H 191 H Calcium Phosphorus Magnesium Iron TIBC Ferritin Blood Type Antibody Screen Crossmatch
--- NOTE | 2018-07-23 13:51 | Progress Note ---
Assessment and Plan Assessment and plan: Bilateral pneumonia -Continue IV antibiotics, consider changing to oral in am -Blood cultures negative so far Acute on chronic anemia -We'll monitor H&H and transfuse as needed -Patient's baseline Hemoglobin is 11. The fluctuating hemoglobin level may be due to hemodilution versus lab error -stool for occult blood neg -On oral iron tablet due to low iron level -GI not considering immediate further investigative testing due to negative obvious active bleeding Mildly elevated troponin -Stress test cancelled by cardiology due to anemia -pt denies chest pain. Acute on CKD stage 3 -Creatinine level stable -Renal US negative for hydronephrosis -Nephrology following DM2 with current hyperglycemia -BG improving on current insulin regimen, adjust as needed Hypertension -Controlled on amlodipine Acute metabolic encephalopathy -Due to hypoglycemia versus infection -Resolved Metabolic acidosis -Likely due to renal impairment, resolved Hypomagnesemia/Hypophosphatemia -Resolved status post repletion History of throat cancer -Status post surgery/radiation/chemo -For outpatient follow-up Physical deconditioning -PT consulted. Disposition: For discharge when medically stable probably in 1-2 days History Interval history: Patient reports no bleeding from any orifice. The blood transfusion was not given yesterday because patient refused, however subsequent H&H improved Hospitalist Physical - Constitutional Vitals: Temp Pulse Resp BP Pulse Ox 98.4 F 87 18 133/79 96 07/23/18 11:51 07/23/18 11:50 07/23/18 11:50 07/23/18 11:50 07/23/18 11:50 General appearance: Present: no acute distress, well-nourished, other (appears weak) - EENT Eyes: Present: PERRL, EOM intact ENT: hearing intact, clear oral mucosa - Neck Neck: Present: supple - Respiratory Respiratory effort: normal Respiratory: bilateral: CTA - Cardiovascular Rhythm: regular Heart Sounds: Present: S1 & S2 - Extremities Extremities: No edema - Abdominal General gastrointestinal: soft, non-tender, non-distended, normal bowel sounds - Integumentary Integumentary: Present: clear, warm, dry - Neurologic Neurologic: CNII-XII intact Results - Labs CBC & Chem 7: 07/23/18 10:04 07/23/18 05:05 Labs: Laboratory Last Values WBC 10.7 K/mm3 (4.5-11.0) 07/23/18 10:04 RBC 2.86 M/mm3 (3.65-5.03) L 07/23/18 10:04 Hgb 8.3 gm/dl (11.8-15.2) L 07/23/18 10:04 Hct 24.8 % (35.5-45.6) L 07/23/18 10:04 MCV 87 fl (84-94) 07/23/18 10:04 MCH 29 pg (28-32) 07/23/18 10:04 MCHC 33 % (32-34) 07/23/18 10:04 RDW 15.2 % (13.2-15.2) 07/23/18 10:04 Plt Count 322 K/mm3 (140-440) 07/23/18 10:04 Lymph % (Auto) 5.9 % (13.4-35.0) L 07/20/18 16:03 [place] % (Auto) 3.8 % (0.0-7.3) 07/20/18 16:03 Eos % (Auto) 0.1 % (0.0-4.3) 07/20/18 16:03 Baso % (Auto) 0.3 % (0.0-1.8) 07/20/18 16:03 Lymph # 0.4 K/mm3 (1.2-5.4) L 07/20/18 16:03 [place] # 0.2 K/mm3 (0.0-0.8) 07/20/18 16:03 Eos # 0.0 K/mm3 (0.0-0.4) 07/20/18 16:03 Baso # 0.0 K/mm3 (0.0-0.1) 07/20/18 16:03 Add Manual Diff Complete 07/22/18 05:47 Total Counted 100 07/22/18 05:47 Seg Neutrophils % Aircraft [employer]r 07/21/18 06:50 Seg Neuts % (Manual) 84.0 % (40.0-70.0) H 07/22/18 05:47 Band Neutrophils % 16.0 % 07/22/18 05:47 Lymphocytes % (Manual) 0 % (13.4-35.0) L 07/22/18 05:47 Reactive Lymphs % (Man) 0 % 07/22/18 05:47 Monocytes % (Manual) 0 % (0.0-7.3) 07/22/18 05:47 Eosinophils % (Manual) 0 % (0.0-4.3) 07/22/18 05:47 Basophils % (Manual) 0 % (0.0-1.8) 07/22/18 05:47 Metamyelocytes % 0 % 07/22/18 05:47 Myelocytes % 0 % 07/22/18 05:47 Promyelocytes % 0 % 07/22/18 05:47 Blast Cells % 0 % 07/22/18 05:47 Nucleated RBC % Not Reportable 07/22/18 05:47 Seg Neutrophils # 11.5 K/mm3 (1.8-7.7) H 07/21/18 06:50 Seg Neutrophils # Man 8.0 K/mm3 (1.8-7.7) H 07/22/18 05:47 Band Neutrophils # 1.5 K/mm3 07/22/18 05:47 Lymphocytes # (Manual) 0.0 K/mm3 (1.2-5.4) L 07/22/18 05:47 Abs React Lymphs (Man) 0.0 K/mm3 07/22/18 05:47 Monocytes # (Manual) 0.0 K/mm3 (0.0-0.8) 07/22/18 05:47 Eosinophils # (Manual) 0.0 K/mm3 (0.0-0.4) 07/22/18 05:47 Basophils # (Manual) 0.0 K/mm3 (0.0-0.1) 07/22/18 05:47 Metamyelocytes # 0.0 K/mm3 07/22/18 05:47 Myelocytes # 0.0 K/mm3 07/22/18 05:47 Promyelocytes # 0.0 K/mm3 07/22/18 05:47 Blast Cells # 0.0 K/mm3 07/22/18 05:47 WBC Morphology Not Reportable 07/22/18 05:47 Hypersegmented Neuts Not Reportable 07/22/18 05:47 Hyposegmented Neuts Not Reportable 07/22/18 05:47 Hypogranular Neuts Not Reportable 07/22/18 05:47 Smudge Cells Not Reportable 07/22/18 05:47 Toxic Granulation Not Reportable 07/22/18 05:47 Toxic Vacuolation Not Reportable 07/22/18 05:47 Dohle Bodies Not Reportable 07/22/18 05:47 Pelger-Huet Anomaly Not Reportable 07/22/18 05:47 Juan Alberto Rods Not Reportable 07/22/18 05:47 Platelet Estimate Consistent w auto 07/22/18 05:47 Clumped Platelets Not Reportable 07/22/18 05:47 Plt Clumps, EDTA Not Reportable 07/22/18 05:47 Large Platelets Not Reportable 07/22/18 05:47 Giant Platelets Not Reportable 07/22/18 05:47 Platelet Satelliting Not Reportable 07/22/18 05:47 Plt Morphology Comment Not Reportable 07/22/18 05:47 RBC Morphology Not Reportable 07/22/18 05:47 Dimorphic RBCs Not Reportable 07/22/18 05:47 Polychromasia Not Reportable 07/22/18 05:47 Hypochromasia Not Reportable 07/22/18 05:47 Poikilocytosis Not Reportable 07/22/18 05:47 Anisocytosis 1+ 07/22/18 05:47 Microcytosis Not Reportable 07/22/18 05:47 Macrocytosis Not Reportable 07/22/18 05:47 Spherocytes Not Reportable 07/22/18 05:47 Pappenheimer Bodies Not Reportable 07/22/18 05:47 Sickle Cells Not Reportable 07/22/18 05:47 Target Cells Not Reportable 07/22/18 05:47 Tear Drop Cells Not Reportable 07/22/18 05:47 Ovalocytes Not Reportable 07/22/18 05:47 Helmet Cells Not Reportable 07/22/18 05:47 Garcia-Addis Bodies Not Reportable 07/22/18 05:47 [place] Rings Not Reportable 07/22/18 05:47 [place] Cells Few 07/22/18 05:47 Bite Cells Not Reportable 07/22/18 05:47 Crenated Cell Not Reportable 07/22/18 05:47 Elliptocytes Not Reportable 07/22/18 05:47 Acanthocytes (Spur) Not Reportable 07/22/18 05:47 Rouleaux Not Reportable 07/22/18 05:47 Hemoglobin C Crystals Not Reportable 07/22/18 05:47 Schistocytes Rare 07/22/18 05:47 Malaria parasites Not Reportable 07/22/18 05:47 Luis Miguel Bodies Not Reportable 07/22/18 05:47 Hem Pathologist Commnt No 07/22/18 05:47 PT 13.6 Sec. (12.2-14.9) 07/20/18 16:03 INR 0.98 (0.87-1.13) 07/20/18 16:03 APTT 22.2 Sec. (24.2-36.6) L 07/20/18 16:03 VBG pH 7.312 (7.320-7.420) L 07/20/18 16:05 Sodium 136 mmol/L (137-145) L 07/23/18 05:05 Potassium 4.8 mmol/L (3.6-5.0) D 07/23/18 05:05 Chloride 103.2 mmol/L (98-107) 07/23/18 05:05 Carbon Dioxide 22 mmol/L (22-30) 07/23/18 05:05 Anion Gap 16 mmol/L 07/23/18 05:05 BUN 39 mg/dL (9-20) H 07/23/18 05:05 Creatinine 2.2 mg/dL (0.8-1.5) H 07/23/18 05:05 Estimated GFR 37 ml/min 07/23/18 05:05 BUN/Creatinine Ratio 18 % 07/23/18 05:05 Glucose 260 mg/dL (75-100) H 07/23/18 05:05 POC Glucose 191 (70-105) H 07/23/18 11:40 Hemoglobin A1c 11.4 % (4-6) H 07/20/18 16:03 Calcium 8.5 mg/dL (8.4-10.2) 07/23/18 05:05 Phosphorus 2.90 mg/dL (2.5-4.5) D 07/23/18 05:05 Magnesium 2.60 mg/dL (1.7-2.3) H 07/23/18 05:05 Iron 11 ug/dL (49-181) L 07/22/18 17:05 TIBC 182 mcg/dL (250-450) L 07/22/18 17:05 Ferritin 222.3 ng/mL (13.0-400.0) 07/22/18 17:05 Total Bilirubin 0.20 mg/dL (0.1-1.2) 07/21/18 06:50 AST 21 units/L (5-40) 07/21/18 06:50 ALT 11 units/L (7-56) 07/21/18 06:50 Alkaline Phosphatase 40 units/L (35-129) 07/21/18 06:50 Ammonia 32.0 umol/L (25-60) 07/20/18 16:05 Total Creatine Kinase 871 units/L (55-170) H 07/20/18 16:03 CK-MB (CK-2) 6.8 ng/mL (0.0-4.0) H 07/20/18 16:03 CK-MB (CK-2) Rel Index 0.7 (0-4) 07/20/18 16:03 Troponin T 0.036 ng/mL (0.00-0.029) H D 07/21/18 00:52 NT-Pro-B Natriuret Pep 207.6 pg/mL (0-900) 07/20/18 16:03 Total Protein 6.1 g/dL (6.3-8.2) L 07/21/18 06:50 Albumin 2.9 g/dL (3.9-5) L 07/21/18 06:50 Albumin/Globulin Ratio 0.9 % 07/21/18 06:50 Triglycerides 70 mg/dL (2-149) 07/20/18 16:03 Cholesterol 145 mg/dL (50-199) 07/20/18 16:03 LDL Cholesterol Direct 93 mg/dL (50-130) 07/20/18 16:03 HDL Cholesterol 52 mg/dL (40-59) 07/20/18 16:03 Cholesterol/HDL Ratio 2.78 % 07/20/18 16:03 PTH Intact 57.12 pg/mL (15-65) 07/22/18 05:47 Urine Color Yellow (Yellow) 07/21/18 12:48 Urine Turbidity Clear (Clear) 07/21/18 12:48 Urine pH 5.0 (5.0-7.0) 07/21/18 12:48 Ur Specific [place] 1.015 (1.003-1.030) 07/21/18 12:48 Urine Protein 100 mg/dl mg/dL (Negative) 07/21/18 12:48 Urine Glucose (UA) >=500 mg/dL (Negative) 07/21/18 12:48 Urine Ketones Neg mg/dL (Negative) 07/21/18 12:48 Urine Blood Sm (Negative) 07/21/18 12:48 Urine Nitrite Neg (Negative) 07/21/18 12:48 Urine Bilirubin Neg (Negative) 07/21/18 12:48 Urine Urobilinogen < 2.0 mg/dL (<2.0) 07/21/18 12:48 Ur Leukocyte Esterase Neg (Negative) 07/21/18 12:48 Urine WBC (Auto) 1.0 /HPF (0.0-6.0) 07/21/18 12:48 Urine RBC (Auto) 2.0 /HPF (0.0-6.0) 07/21/18 12:48 Plasma/Serum Alcohol < 0.01 % (0-0.07) 07/20/18 16:05 Blood Type O POSITIVE 07/20/18 16:05 Antibody Screen Negative 07/20/18 16:05 Crossmatch See Detail 07/20/18 16:05 Active Medications - Current Medications Current Medications: Generic Name Dose Route Start Last Admin Trade Name Freq PRN Reason Stop Dose Admin Acetaminophen 650 mg 07/20/18 18:31 Tylenol PO Q4H PRN Pain MILD(1-3)/Fever >100.5/PEDROZA Albuterol 2.5 mg 07/20/18 18:34 Proventil IH Q4HRT PRN Shortness Of Breath Albuterol/Ipratropium 1 ampul 07/20/18 20:00 07/23/18 11:13 Duoneb *Not For Prn Use* IH Not Given QIDRT NAEEM Amlodipine Besylate 10 mg 07/21/18 18:00 07/23/18 09:47 Norvasc PO 10 mg QDAY NAEEM Administration Carvedilol 12.5 mg 07/21/18 11:00 07/23/18 09:48 Coreg PO 12.5 mg BID NAEEM Administration Ferrous Sulfate 325 mg 07/23/18 22:00 Feosol PO BID NAEEM Hydromorphone HCl 0.5 mg 07/20/18 18:31 Dilaudid IV Q3H PRN Pain , Severe (7-10) Azithromycin 500 mg/ Sodium 250 mls @ 250 mls/hr 07/21/18 18:00 07/22/18 18:53 Chloride IV 250 mls/hr Q24H NAEEM Administration Ceftriaxone Sodium 2 gm in 100 mls @ 200 mls/hr 07/21/18 18:00 07/22/18 18:08 Rocephin/Ns 2 Gm/100 Ml IV 200 mls/hr Q24H NAEEM Administration Protocol Sodium Chloride 1,000 mls @ 100 mls/hr 07/21/18 16:00 07/22/18 22:41 Nacl 0.45% 1000 Ml IV 100 mls/hr DIRECT NAEEM Administration Insulin Glargine 15 units 07/22/18 12:33 07/22/18 22:24 Lantus SUB-Q 15 units QHS NAEEM Administration Insulin Human Lispro 5 unit 07/22/18 14:00 07/23/18 13:01 Humalog SUB-Q 5 unit TID NAEEM Administration Insulin Human Regular 0 units 07/21/18 12:32 07/23/18 12:48 Humulin R SUB-Q 2 units ACHS NAEEM Administration Protocol Ondansetron HCl 4 mg 07/20/18 18:31 Zofran IV Q8H PRN Nausea And Vomiting Ondansetron HCl 8 mg 07/20/18 18:37 Zofran Odt PO Q8HR PRN Nausea Oxycodone/Acetaminophen 1 tab 07/20/18 18:31 Percocet 5/325 PO Q6H PRN Pain, Moderate (4-6) Pantoprazole Sodium 40 mg 07/22/18 15:00 07/23/18 09:47 Protonix IV 40 mg BID NAEEM Administration Polyethylene Glycol 17 gm 07/22/18 14:36 07/22/18 15:07 Miralax 3350 PO 17 gm QDAY PRN Administration Constipation Senna/Docusate Sodium 2 tab 07/22/18 15:00 07/23/18 05:34 Senokot S PO Not Given Q12H NAEEM Sodium Chloride 10 ml 07/20/18 22:00 07/23/18 09:55 Sodium Chloride Flush Syringe 10 Ml IV Not Given BID NAEEM Sodium Chloride 10 ml 07/20/18 18:31 Sodium Chloride Flush Syringe 10 Ml IV PRN PRN LINE FLUSH
--- NOTE | 2018-07-23 14:28 | Progress Note ---
Assessment and Plan Patient awake and resting on 2 litres O2. O2 saturation 94%.No acute respiratory distress. Denies chest pain or shortness of breath at this time.Patient afebrile and has no leukocytosis. Patient presently on zithromax and ceftrioxone. - Patient Problems (1) Bilateral pneumonia Current Visit: Yes Status: Acute Qualifiers: Lung location: upper lobe of lung Plan to address problem: Patient is on ceftrioxone and zithromax. (2) Acute encephalopathy Current Visit: Yes Status: Acute Plan to address problem: Management as per primary care. (3) Hypoglycemia Current Visit: Yes Status: Acute Plan to address problem: To days blood sugur 260. Management as per primary care. (4) HTN (hypertension) Current Visit: Yes Status: Chronic Qualifiers: Hypertension type: essential hypertension Qualified Code(s): I10 - Essential (primary) hypertension Plan to address problem: Management as per primary care. (5) IDDM (insulin dependent diabetes mellitus) Current Visit: Yes Status: Chronic Plan to address problem: Management as per primary care. Subjective Date of service: 07/23/18 Principal diagnosis: anemia Interval history: Patient awake and resting on 2 litres O2. O2 saturation 94%.No acute respiratory distress. Denies chest pain or shortness of breath at this time.Patient afebrile and has no leukocytosis. Patient presently on zithromax and ceftrioxone. Objective Vital Signs - 12hr 07/23/18 07/23/18 07/23/18 04:08 07:52 08:25 Temperature 98.5 F Pulse Rate 83 Pulse Rate [ 85 Anterior Bilateral Throughout] Respiratory 15 19 Rate Respiratory 18 Rate [Anterior Bilateral Throughout] Blood Pressure 113/66 O2 Sat by Pulse 97 Oximetry 07/23/18 07/23/18 07/23/18 08:39 08:40 09:47 Temperature 98.5 F Pulse Rate 90 85 Pulse Rate [ Anterior Bilateral Throughout] Respiratory 18 Rate Respiratory Rate [Anterior Bilateral Throughout] Blood Pressure 137/71 118/70 O2 Sat by Pulse 100 Oximetry 07/23/18 07/23/18 07/23/18 09:48 10:58 11:50 Temperature Pulse Rate 85 91 H 87 Pulse Rate [ Anterior Bilateral Throughout] Respiratory 18 Rate Respiratory Rate [Anterior Bilateral Throughout] Blood Pressure 118/70 133/79 O2 Sat by Pulse 96 Oximetry 07/23/18 11:51 Temperature 98.4 F Pulse Rate Pulse Rate [ Anterior Bilateral Throughout] Respiratory Rate Respiratory Rate [Anterior Bilateral Throughout] Blood Pressure O2 Sat by Pulse Oximetry Constitutional: no acute distress, alert Eyes: non-icteric ENT: oropharynx moist Neck: supple, no JVD Ascultation: Bilateral: rhonchi Cardiovascular: regular rate and rhythm Gastrointestinal: normoactive bowel sounds, soft, non-tender Integumentary: normal Extremities: no cyanosis, no edema Neurologic: non-focal exam, pupils equal and round, CN II-XII normal Psychiatric: depressed CBC and BMP: 07/23/18 10:04 07/23/18 05:05 ABG, PT/INR, D-dimer: PT/INR, D-dimer PT 13.6 Sec. (12.2-14.9) 07/20/18 16:03 INR 0.98 (0.87-1.13) 07/20/18 16:03 Abnormal lab findings: Abnormal Labs 07/20/18 07/20/18 07/20/18 15:55 16:03 16:03 WBC RBC 5.29 H Hgb 15.3 H Hct 46.1 H RDW Lymph % (Auto) 5.9 L Lymph # 0.4 L Seg Neutrophils % 89.9 H Seg Neuts % (Manual) Lymphocytes % (Manual) Seg Neutrophils # Seg Neutrophils # Man Lymphocytes # (Manual) APTT 22.2 L VBG pH Sodium Chloride Carbon Dioxide BUN Creatinine Glucose POC Glucose < 40 L Hemoglobin A1c Calcium Phosphorus Magnesium Iron TIBC Total Creatine Kinase CK-MB (CK-2) Troponin T Total Protein Albumin Crossmatch 07/20/18 07/20/18 07/20/18 16:03 16:03 16:05 WBC RBC Hgb Hct RDW Lymph % (Auto) Lymph # Seg Neutrophils % Seg Neuts % (Manual) Lymphocytes % (Manual) Seg Neutrophils # Seg Neutrophils # Man Lymphocytes # (Manual) APTT VBG pH 7.312 L Sodium Chloride Carbon Dioxide BUN 39 H Creatinine 2.5 H Glucose 31 L* POC Glucose Hemoglobin A1c 11.4 H Calcium Phosphorus Magnesium Iron TIBC Total Creatine Kinase 871 H CK-MB (CK-2) 6.8 H Troponin T 0.036 H Total Protein Albumin 3.4 L Crossmatch 07/20/18 07/20/18 07/20/18 16:05 16:20 18:17 WBC RBC Hgb Hct RDW Lymph % (Auto) Lymph # Seg Neutrophils % Seg Neuts % (Manual) Lymphocytes % (Manual) Seg Neutrophils # Seg Neutrophils # Man Lymphocytes # (Manual) APTT VBG pH Sodium Chloride Carbon Dioxide BUN Creatinine Glucose POC Glucose 181 H 53 L Hemoglobin A1c Calcium Phosphorus Magnesium Iron TIBC Total Creatine Kinase CK-MB (CK-2) Troponin T Total Protein Albumin Crossmatch See Detail 07/20/18 07/20/18 07/21/18 20:17 21:34 00:52 WBC RBC Hgb Hct RDW Lymph % (Auto) Lymph # Seg Neutrophils % Seg Neuts % (Manual) Lymphocytes % (Manual) Seg Neutrophils # Seg Neutrophils # Man Lymphocytes # (Manual) APTT VBG pH Sodium Chloride Carbon Dioxide BUN Creatinine Glucose POC Glucose 296 H 281 H Hemoglobin A1c Calcium Phosphorus Magnesium Iron TIBC Total Creatine Kinase CK-MB (CK-2) Troponin T 0.036 H D Total Protein Albumin Crossmatch 07/21/18 07/21/18 07/21/18 05:23 06:50 06:50 WBC 12.9 H RBC 2.99 L Hgb 8.4 L D Hct 26.0 L D RDW Lymph % (Auto) Lymph # Seg Neutrophils % Seg Neuts % (Manual) Lymphocytes % (Manual) Seg Neutrophils # 11.5 H Seg Neutrophils # Man 8.0 H Lymphocytes # (Manual) APTT VBG pH Sodium Chloride Carbon Dioxide 21 L BUN 38 H Creatinine 2.2 H Glucose 250 H POC Glucose 244 H Hemoglobin A1c Calcium 8.3 L Phosphorus Magnesium Iron TIBC Total Creatine Kinase CK-MB (CK-2) Troponin T Total Protein 6.1 L Albumin 2.9 L Crossmatch 07/21/18 07/21/18 07/21/18 10:49 12:16 16:28 WBC 13.9 H RBC 2.99 L Hgb 8.5 L Hct 25.9 L RDW Lymph % (Auto) Lymph # Seg Neutrophils % Seg Neuts % (Manual) Lymphocytes % (Manual) Seg Neutrophils # Seg Neutrophils # Man Lymphocytes # (Manual) APTT VBG pH Sodium Chloride Carbon Dioxide BUN Creatinine Glucose POC Glucose 406 H 316 H Hemoglobin A1c Calcium Phosphorus Magnesium Iron TIBC Total Creatine Kinase CK-MB (CK-2) Troponin T Total Protein Albumin Crossmatch 07/21/18 07/22/18 07/22/18 21:08 05:47 05:47 WBC RBC 2.10 L Hgb 6.1 L Hct 19.0 L* D RDW 15.3 H Lymph % (Auto) Lymph # Seg Neutrophils % Seg Neuts % (Manual) 84.0 H Lymphocytes % (Manual) 0 L Seg Neutrophils # Seg Neutrophils # Man 8.0 H Lymphocytes # (Manual) 0.0 L APTT VBG pH Sodium Chloride 94.2 L Carbon Dioxide BUN 29 H Creatinine 1.6 H Glucose 232 H POC Glucose 131 H Hemoglobin A1c Calcium Phosphorus 1.70 L Magnesium 1.30 L Iron TIBC Total Creatine Kinase CK-MB (CK-2) Troponin T Total Protein Albumin Crossmatch 07/22/18 07/22/18 07/22/18 08:09 11:48 16:17 WBC RBC Hgb Hct RDW Lymph % (Auto) Lymph # Seg Neutrophils % Seg Neuts % (Manual) Lymphocytes % (Manual) Seg Neutrophils # Seg Neutrophils # Man Lymphocytes # (Manual) APTT VBG pH Sodium Chloride Carbon Dioxide BUN Creatinine Glucose POC Glucose 282 H 336 H 271 H Hemoglobin A1c Calcium Phosphorus Magnesium Iron TIBC Total Creatine Kinase CK-MB (CK-2) Troponin T Total Protein Albumin Crossmatch 07/22/18 07/22/18 07/22/18 17:00 17:05 20:59 WBC RBC Hgb 8.2 L Hct 25.0 L D RDW Lymph % (Auto) Lymph # Seg Neutrophils % Seg Neuts % (Manual) Lymphocytes % (Manual) Seg Neutrophils # Seg Neutrophils # Man Lymphocytes # (Manual) APTT VBG pH Sodium Chloride Carbon Dioxide BUN Creatinine Glucose POC Glucose 380 H Hemoglobin A1c Calcium Phosphorus Magnesium Iron 11 L TIBC 182 L Total Creatine Kinase CK-MB (CK-2) Troponin T Total Protein Albumin Crossmatch 07/22/18 07/23/18 07/23/18 23:49 02:41 05:05 WBC RBC Hgb Hct RDW Lymph % (Auto) Lymph # Seg Neutrophils % Seg Neuts % (Manual) Lymphocytes % (Manual) Seg Neutrophils # Seg Neutrophils # Man Lymphocytes # (Manual) APTT VBG pH Sodium 136 L Chloride Carbon Dioxide BUN 39 H Creatinine 2.2 H Glucose 260 H POC Glucose 372 H 279 H Hemoglobin A1c Calcium Phosphorus Magnesium 2.60 H Iron TIBC Total Creatine Kinase CK-MB (CK-2) Troponin T Total Protein Albumin Crossmatch 07/23/18 07/23/18 07/23/18 07:45 10:04 11:40 WBC RBC 2.86 L Hgb 8.3 L Hct 24.8 L RDW Lymph % (Auto) Lymph # Seg Neutrophils % Seg Neuts % (Manual) Lymphocytes % (Manual) Seg Neutrophils # Seg Neutrophils # Man Lymphocytes # (Manual) APTT VBG pH Sodium Chloride Carbon Dioxide BUN Creatinine Glucose POC Glucose 239 H 191 H Hemoglobin A1c Calcium Phosphorus Magnesium Iron TIBC Total Creatine Kinase CK-MB (CK-2) Troponin T Total Protein Albumin Crossmatch
[2018-07-23] MEDS: NACL 0.9% 1000 ML 1,000 ML IV SCH (17:02)
[2018-07-23] MEDS: ROCEPHIN/NS 2 GM/100 ML 2 GM/100 ML BAG IV SCH (17:02)
[2018-07-23] MEDS: ZITHROMAX 500 MG in NACL 0.9% 250ML 250 ML IV SCH (17:08)
--- NOTE | 2018-07-23 18:57 | Cat Scan Report ---
PROCEDURE: CT ABDOMEN PELVIS WO CON HISTORY: acute blood loss FINDINGS: Unenhanced CT of the abdomen and pelvis was performed and data was reformatted in the sagit jennifer and coronal planes. The heart is mildly large. There is bibasilar dependent consolidation which is likely atelectasis but pneumonia is not excluded. There is a small right pleural effusion. ABDOMEN: There are gallstones. The gallbladder is not distended but there does appear to be some trace fluid a round the gallbladder. Consider ultrasound or HIDA if patient has right upper quadrant pain. The liver, spleen, adrenal glands, pancreas are unremarkable. There is no renal or ureteral calculus. There is no small or large bowel obstruction. There is no hemoperitoneum or retroperitoneal hemorrhage Pelvis: There is a normal appendix. There is no evidence of diverticulitis. The prostate and urinary bladder are within normal limits. IMPRESSION: Bibasilar pulmonary consolidation, atelectasis versus pneumonia Small right pleural effusion ABDOMEN: Gallstones. The gallbladder is not distended but there is some trace fluid around the gallbl adder. Cholecystitis is not excluded. Consider ultrasound or HIDA patient has right upper quadrant pa in No bowel obstruction Pelvis: Normal appendix This document is electronically signed by Edin Swift MD., July 23 2018 06:55:46 PM ET
[2018-07-23] MEDS: FEOSOL PO SCH (21:07)
[2018-07-23] MEDS: LANTUS SUB-Q SCH (21:13)
[2018-07-24] MEDS: SENOKOT S PO SCH ×4 (04:15→22:00)
[2018-07-24 06:39] LABS: Hematocrit 23.3 % (35.5-45.6); Hemoglobin 7.8 gm/dl (11.8-15.2); Mean Corpuscular HGB Conc 33 % (32-34); Mean Corpuscular Volume 87 fl (84-94); Platelet Count 307 K/mm3 (140-440); Red Blood Count 2.68 M/mm3 (3.65-5.03); Red Cell Distribution Width 14.7 % (13.2-15.2)
[2018-07-24 06:56] LABS: Calcium 8.5 mg/dL (8.4-10.2)
[2018-07-24] MEDS: HumuLIN R SUB-Q SCH ×5 (07:48→22:29)
[2018-07-24] MEDS: HumaLOG SUB-Q SCH ×4 (07:48→22:29)
[2018-07-24] MEDS: DUONEB *Not for PRN Use IH SCH ×4 (09:02→19:50)
[2018-07-24] MEDS: PROTONIX IV SCH ×2 (09:51→22:11)
[2018-07-24] MEDS: FEOSOL PO SCH ×2 (09:51→21:27)
[2018-07-24] MEDS: SODIUM CHLORIDE FLUSH SYRINGE 10 ML IV SCH ×2 (09:52→22:11)
[2018-07-24] MEDS: NORVASC PO SCH (09:54)
[2018-07-24] MEDS: COREG PO SCH ×2 (09:54→21:26)
[2018-07-24] MEDS: NACL 0.9% 1000 ML 1,000 ML IV SCH (09:56)
--- NOTE | 2018-07-24 11:51 | Progress Note ---
Assessment and Plan 1. Acute kidney injury: Vasomotor AISHA superimposed on CKD stage 3 in the setting of volume depletion. Urine studies pending. Renal US negative for hydro. Creatinine level is about the same as yesterday. Monitor renal function. Renal prognosis is guarded. Avoid nephrotoxic agents. Meds dosage based on GFR. 2. FEN: Will stop IV fluids due to sob and suspected fluid overload. Monitor lytes. 3. Bilateral PNA. 4. Hypoxic respiratory failure: 2/2 PNA. 5. Acute encephalopathy: Improved. 6. Anemia: S/p PRBC. 7. DM type 2. 8. HTN. Also d/w his at the bedside. Subjective Date of service: 07/24/18 Principal diagnosis: anemia Interval history: Patient was seen and examined at the bedside. Patient c/o orthopnea. Objective - Vital Signs Vital signs: Vital Signs - 12hr 07/24/18 07/24/18 07/24/18 03:52 07:29 08:10 Temperature 98.7 F 98.4 F Pulse Rate 88 87 Pulse Rate [ Anterior Bilateral Throughout] Respiratory 16 16 18 Rate Respiratory Rate [Anterior Bilateral Throughout] Blood Pressure 123/68 132/76 O2 Sat by Pulse 96 92 Oximetry 07/24/18 07/24/18 07/24/18 09:02 09:07 09:11 Temperature Pulse Rate 87 Pulse Rate [ 89 90 Anterior Bilateral Throughout] Respiratory Rate Respiratory 18 18 Rate [Anterior Bilateral Throughout] Blood Pressure O2 Sat by Pulse Oximetry 07/24/18 07/24/18 09:54 10:00 Temperature Pulse Rate 89 Pulse Rate [ Anterior Bilateral Throughout] Respiratory Rate Respiratory Rate [Anterior Bilateral Throughout] Blood Pressure 148/84 O2 Sat by Pulse 97 Oximetry - General Appearance General appearance: well-developed, appears stated age, other (not in distress) EENT: ATNC, PERRL, mucous membranes moist, hearing intact, vision intact Neck: supple Respiratory: Present: Rales Cardiology: regular, S1S2, no murmurs Gastrointestinal: normoactive bowel sounds, no tenderness, no distended Integumentary: no rash, warm and dry Neurologic: no focal deficit, no asterixis, alert and oriented x3, other (dysphonia) Musculoskeletal: other (no edema) - Lab 07/24/18 05:42 07/24/18 05:42 Most recent lab results Calcium 8.5 mg/dL (8.4-10.2) 07/24/18 05:42 Phosphorus 2.90 mg/dL (2.5-4.5) D 07/23/18 05:05 Magnesium 2.60 mg/dL (1.7-2.3) H 07/23/18 05:05 Medications & Allergies - Medications Allergies/Adverse Reactions: Allergies No Known Allergies Allergy (Unverified 01/01/17 10:41) Home Medications: Home Medications Medication Instructions Recorded Confirmed Last Taken Type Insulin Aspart [NovoLOG 100 See Protocol SQ ACHS 07/20/18 07/20/18 07/19/18 History UNITS/ML VIAL] Insulin Glargine,Hum.rec.anlog 30 units SQ HS 07/20/18 07/20/18 07/19/18 History [Lantus] Lisinopril/Hydrochlorothiazide 1 tab PO DAILY 07/20/18 07/20/18 07/20/18 History [Zestoretic 10-12.5 mg Tablet] Active Medications: Generic Name Dose Route Start Last Admin Trade Name Freq PRN Reason Stop Dose Admin Acetaminophen 650 mg 07/20/18 18:31 Tylenol PO Q4H PRN Pain MILD(1-3)/Fever >100.5/PEDROZA Albuterol 2.5 mg 07/20/18 18:34 Proventil IH Q4HRT PRN Shortness Of Breath Albuterol/Ipratropium 1 ampul 07/20/18 20:00 07/24/18 09:02 Duoneb *Not For Prn Use* IH 1 ampul QIDRT NAEEM Administration Amlodipine Besylate 10 mg 07/21/18 18:00 07/24/18 09:54 Norvasc PO 10 mg QDAY NAEEM Administration Carvedilol 12.5 mg 07/21/18 11:00 07/24/18 09:54 Coreg PO 12.5 mg BID NAEEM Administration Ferrous Sulfate 325 mg 07/23/18 22:00 07/24/18 09:51 Feosol PO 325 mg BID NAEEM Administration Hydromorphone HCl 0.5 mg 07/20/18 18:31 Dilaudid IV Q3H PRN Pain , Severe (7-10) Azithromycin 500 mg/ Sodium 250 mls @ 250 mls/hr 07/21/18 18:00 07/23/18 17:0 8 Chloride IV 250 mls/hr Q24H NAEEM Administration Ceftriaxone Sodium 2 gm in 100 mls @ 200 mls/hr 07/21/18 18:00 07/23/18 17:02 Rocephin/Ns 2 Gm/100 Ml IV 200 mls/hr Q24H NAEEM Administration Protocol Sodium Chloride 1,000 mls @ 75 mls/hr 07/23/18 16:00 07/24/18 09:56 Nacl 0.9% 1000 Ml IV 75 mls/hr DIRECT NAEEM Administration Insulin Glargine 15 units 07/22/18 12:33 07/23/18 21:13 Lantus SUB-Q 15 units QHS NAEEM Administration Insulin Human Lispro 5 unit 07/22/18 14:00 07/24/18 07:48 Humalog SUB-Q Not Given TID NAEEM Insulin Human Regular 0 units 07/21/18 12:32 07/24/18 11:31 Humulin R SUB-Q Not Given ACHS [facility] Protocol Ondansetron HCl 4 mg 07/20/18 18:31 Zofran IV Q8H PRN Nausea And Vomiting Ondansetron HCl 8 mg 07/20/18 18:37 Zofran Odt PO Q8HR PRN Nausea Oxycodone/Acetaminophen 1 tab 07/20/18 18:31 Percocet 5/325 PO Q6H PRN Pain, Moderate (4-6) Pantoprazole Sodium 40 mg 07/22/18 15:00 07/24/18 09:51 Protonix IV 40 mg BID NAEEM Administration Polyethylene Glycol 17 gm 07/22/18 14:36 07/22/18 15:07 Miralax 3350 PO 17 gm QDAY PRN Administration Constipation Senna/Docusate Sodium 2 tab 07/22/18 15:00 07/24/18 04:15 Senokot S PO Not Given Q12H NAEEM Sodium Chloride 10 ml 07/20/18 22:00 07/24/18 09:52 Sodium Chloride Flush Syringe 10 Ml IV 10 ml BID NAEEM Administration Sodium Chloride 10 ml 07/20/18 18:31 07/23/18 21:08 Sodium Chloride Flush Syringe 10 Ml IV 10 ml PRN PRN Administration LINE FLUSH
[2018-07-24] MEDS ORDERED: TRANSDERM-SCOP TD SCH (13:00)
--- NOTE | 2018-07-24 14:19 | Gastroenterology Progress Note ---
<MICHELLE MCKEON - Last Filed: 07/24/18 14:21> Assessment and Plan 1.acute on chronic anemia -stool occult negative -iron 11, TIBC 182, ferritin 222.3 -haptoglobin pending -H/H 7.8/23.3-trend down -continue to monitor H/H and transfuse as needed -no active signs of bleeding (pt reports scant amount of blood tinged sputum/emesis over the past week) -currently HD stable -last colonoscopy 12/2016 showed transverse polyp, diverticulosis in sigmoid, and internal hemorrhoids -etiology-likely multifactorial (could possible have chronic esophagitis with oozing from prior XRT as below?) -will schedule for EGD tomorrow given slight drop in H/H this am -NPO after MN -continue iron supplement -continue PPI and supportive care -will follow 2.Hx of neck cancer -s/p surgery/XRT/chemo with mild chronic dysphagia -currently tolerating diet 3.bilateral pneumonia 4.CKD stage 3 5.Mildly elevated troponin -Stress test cancelled by cardiology due to anemia 6.DM 7.Hypertension Subjective Date of service: 07/24/18 Principal diagnosis: anemia Interval history: No acute distress or active signs of bleeding. Denies abd pain or N/V. Objective - Constitutional Vitals: Temp Pulse Resp BP Pulse Ox 98.7 F 93 H 18 128/72 95 07/24/18 11:32 07/24/18 13:27 07/24/18 13:27 07/24/18 11:32 07/24/18 11:32 General appearance: no acute distress - Respiratory Respiratory: bilateral: diminished - Cardiovascular Rhythm: regular - Gastrointestinal General gastrointestinal: Present: soft, non-tender, non-distended, normal bowel sounds - Neurologic Neurological: alert and oriented x3 - Labs CBC & Chem 7: 07/24/18 05:42 07/24/18 05:42 Labs: Laboratory Results - last 24 hr 07/20/18 07/23/18 07/23/18 16:05 16:10 21:12 WBC RBC Hgb Hct MCV MCH MCHC RDW Plt Count Sodium Potassium Chloride Carbon Dioxide Anion Gap BUN Creatinine Estimated GFR BUN/Creatinine Ratio Glucose POC Glucose 94 285 H Calcium Crossmatch See Detail 07/24/18 07/24/18 07/24/18 05:42 05:42 07:35 WBC 6.3 RBC 2.68 L Hgb 7.8 L Hct 23.3 L MCV 87 MCH 29 MCHC 33 RDW 14.7 Plt Count 307 Sodium 139 Potassium 4.8 Chloride 108.7 H Carbon Dioxide 21 L Anion Gap 14 BUN 36 H Creatinine 2.2 H Estimated GFR 37 BUN/Creatinine Ratio 16 Glucose 65 L POC Glucose 62 L Calcium 8.5 Crossmatch 07/24/18 07/24/18 08:34 11:28 WBC RBC Hgb Hct MCV MCH MCHC RDW Plt Count Sodium Potassium Chloride Carbon Dioxide Anion Gap BUN Creatinine Estimated GFR BUN/Creatinine Ratio Glucose POC Glucose 84 148 H Calcium Crossmatch <RUSH FALL R - Last Filed: 07/24/18 16:00> Assessment and Plan Plan as noted. Of note, states his sisters also anemic, one with Fe def, reasons unknown. If H/H continues to drop, consider CT to r/o retroperitoneal bleed, and Hematology evaluation. May consider IV iron, though normally would give oral trial for several weeks and only do so if fails. Objective - Constitutional Vitals: Temp Pulse Resp BP Pulse Ox 98.7 F 93 H 18 128/72 95 07/24/18 11:32 07/24/18 13:27 07/24/18 13:27 07/24/18 11:32 07/24/18 11:32 - Labs CBC & Chem 7: 07/24/18 05:42 07/24/18 05:42 Labs: Laboratory Results - last 24 hr 07/20/18 07/23/18 07/23/18 16:05 16:10 21:12 WBC RBC Hgb Hct MCV MCH MCHC RDW Plt Count Sodium Potassium Chloride Carbon Dioxide Anion Gap BUN Creatinine Estimated GFR BUN/Creatinine Ratio Glucose POC Glucose 94 285 H Calcium Crossmatch See Detail 07/24/18 07/24/18 07/24/18 05:42 05:42 07:35 WBC 6.3 RBC 2.68 L Hgb 7.8 L Hct 23.3 L MCV 87 MCH 29 MCHC 33 RDW 14.7 Plt Count 307 Sodium 139 Potassium 4.8 Chloride 108.7 H Carbon Dioxide 21 L Anion Gap 14 BUN 36 H Creatinine 2.2 H Estimated GFR 37 BUN/Creatinine Ratio 16 Glucose 65 L POC Glucose 62 L Calcium 8.5 Crossmatch 07/24/18 07/24/18 07/24/18 08:34 11:28 15:51 WBC RBC Hgb Hct MCV MCH MCHC RDW Plt Count Sodium Potassium Chloride Carbon Dioxide Anion Gap BUN Creatinine Estimated GFR BUN/Creatinine Ratio Glucose POC Glucose 84 148 H 153 H Calcium Crossmatch
--- NOTE | 2018-07-24 14:29 | XRay Report ---
AP CHEST :07/24/18 13:41 CLINICAL: Difficulty breathing. COMPARISON:07/20/18 FINDINGS: Persistent and slightly more confluent patchy airspace disease involving the right upper lobe and the right lung base. New mild right upper lobe subsegmental atelectasis. Left basal lung opacities are more streaky than the right lung opacities. The left upper lobe is clear. The heart is normal size. Left pulmonary vessels are normal and right pulmonary vessels are obscured. No pleural effusion. No tubes or lines. IMPRESSION: Persistent and slightly worse multilobar airspace disease.The asymmetric pattern is not typical for pulmonary edema and is more consistent with pneumonia.
--- NOTE | 2018-07-24 16:57 | Progress Note ---
Assessment and Plan Assessment and plan: Bilateral pneumonia -Continue IV antibiotics, consider changing to oral in am -Blood cultures negative so far Acute on chronic anemia -We'll monitor H&H and transfuse as needed -Patient's baseline Hemoglobin is 11. now down to 7.8 -stool for occult blood neg -On oral iron tablet due to low iron level -Discussed with GI, will proceed with Endoscopy in AM - Haptoglobin pending. No active bleeding - could possible have chronic esophagitis with oozing from prior XRT as below Mildly elevated troponin -Stress test cancelled by cardiology due to anemia -pt denies chest pain. Acute on CKD stage 3 -Creatinine level stable -Renal US negative for hydronephrosis -Nephrology following DM2 with current hyperglycemia -BG improving on current insulin regimen, adjust as needed Hypertension -Controlled on amlodipine Acute metabolic encephalopathy -Due to hypoglycemia versus infection -Resolved Metabolic acidosis -Likely due to renal impairment, resolved Hypomagnesemia/Hypophosphatemia -Resolved status post repletion History of throat cancer -Status post surgery/radiation/chemo -For outpatient follow-up Physical deconditioning -PT consulted. Disposition: For discharge when medically stable probably in 1-2 days History Interval history: Patient seen and examined today, he reports increased secretions and productive cough, no fever. spouse is at bedside Hospitalist Physical - Physical exam Narrative exam: General appearance: Present: no acute distress, well-nourished, - EENT Eyes: Present: PERRL, EOM intact ENT: hearing intact, clear oral mucosa - Neck Neck: Present: supple, congested sounds - Respiratory Respiratory effort: normal Respiratory: bilateral: CTA - Cardiovascular Rhythm: regular Heart Sounds: Present: S1 & S2 - Extremities Extremities: No edema - Abdominal General gastrointestinal: soft, non-tender, non-distended, normal bowel sounds - Integumentary Integumentary: Present: clear, warm, dry - Neurologic Neurologic: CNII-XII intact - Constitutional Vitals: Temp Pulse Resp BP Pulse Ox 98.7 F 93 H 18 128/72 95 07/24/18 11:32 07/24/18 13:27 07/24/18 13:27 07/24/18 11:32 07/24/18 11:32 General appearance: Present: no acute distress, well-nourished, other (appears weak) Results - Labs CBC & Chem 7: 07/24/18 05:42 07/24/18 05:42 Labs: Laboratory Last Values WBC 6.3 K/mm3 (4.5-11.0) 07/24/18 05:42 RBC 2.68 M/mm3 (3.65-5.03) L 07/24/18 05:42 Hgb 7.8 gm/dl (11.8-15.2) L 07/24/18 05:42 Hct 23.3 % (35.5-45.6) L 07/24/18 05:42 MCV 87 fl (84-94) 07/24/18 05:42 MCH 29 pg (28-32) 07/24/18 05:42 MCHC 33 % (32-34) 07/24/18 05:42 RDW 14.7 % (13.2-15.2) 07/24/18 05:42 Plt Count 307 K/mm3 (140-440) 07/24/18 05:42 Lymph % (Auto) 5.9 % (13.4-35.0) L 07/20/18 16:03 [place] % (Auto) 3.8 % (0.0-7.3) 07/20/18 16:03 Eos % (Auto) 0.1 % (0.0-4.3) 07/20/18 16:03 Baso % (Auto) 0.3 % (0.0-1.8) 07/20/18 16:03 Lymph # 0.4 K/mm3 (1.2-5.4) L 07/20/18 16:03 [place] # 0.2 K/mm3 (0.0-0.8) 07/20/18 16:03 Eos # 0.0 K/mm3 (0.0-0.4) 07/20/18 16:03 Baso # 0.0 K/mm3 (0.0-0.1) 07/20/18 16:03 Add Manual Diff Complete 07/22/18 05:47 Total Counted 100 07/22/18 05:47 Seg Neutrophils % Parts Delivery [employer] 07/21/18 06:50 Seg Neuts % (Manual) 84.0 % (40.0-70.0) H 07/22/18 05:47 Band Neutrophils % 16.0 % 07/22/18 05:47 Lymphocytes % (Manual) 0 % (13.4-35.0) L 07/22/18 05:47 Reactive Lymphs % (Man) 0 % 07/22/18 05:47 Monocytes % (Manual) 0 % (0.0-7.3) 07/22/18 05:47 Eosinophils % (Manual) 0 % (0.0-4.3) 07/22/18 05:47 Basophils % (Manual) 0 % (0.0-1.8) 07/22/18 05:47 Metamyelocytes % 0 % 07/22/18 05:47 Myelocytes % 0 % 07/22/18 05:47 Promyelocytes % 0 % 07/22/18 05:47 Blast Cells % 0 % 07/22/18 05:47 Nucleated RBC % Not Reportable 07/22/18 05:47 Seg Neutrophils # 11.5 K/mm3 (1.8-7.7) H 07/21/18 06:50 Seg Neutrophils # Man 8.0 K/mm3 (1.8-7.7) H 07/22/18 05:47 Band Neutrophils # 1.5 K/mm3 07/22/18 05:47 Lymphocytes # (Manual) 0.0 K/mm3 (1.2-5.4) L 07/22/18 05:47 Abs React Lymphs (Man) 0.0 K/mm3 07/22/18 05:47 Monocytes # (Manual) 0.0 K/mm3 (0.0-0.8) 07/22/18 05:47 Eosinophils # (Manual) 0.0 K/mm3 (0.0-0.4) 07/22/18 05:47 Basophils # (Manual) 0.0 K/mm3 (0.0-0.1) 07/22/18 05:47 Metamyelocytes # 0.0 K/mm3 07/22/18 05:47 Myelocytes # 0.0 K/mm3 07/22/18 05:47 Promyelocytes # 0.0 K/mm3 07/22/18 05:47 Blast Cells # 0.0 K/mm3 07/22/18 05:47 WBC Morphology Not Reportable 07/22/18 05:47 Hypersegmented Neuts Not Reportable 07/22/18 05:47 Hyposegmented Neuts Not Reportable 07/22/18 05:47 Hypogranular Neuts Not Reportable 07/22/18 05:47 Smudge Cells Not Reportable 07/22/18 05:47 Toxic Granulation Not Reportable 07/22/18 05:47 Toxic Vacuolation Not Reportable 07/22/18 05:47 Dohle Bodies Not Reportable 07/22/18 05:47 Pelger-Huet Anomaly Not Reportable 07/22/18 05:47 Juan Alberto Rods Not Reportable 07/22/18 05:47 Platelet Estimate Consistent w auto 07/22/18 05:47 Clumped Platelets Not Reportable 07/22/18 05:47 Plt Clumps, EDTA Not Reportable 07/22/18 05:47 Large Platelets Not Reportable 07/22/18 05:47 Giant Platelets Not Reportable 07/22/18 05:47 Platelet Satelliting Not Reportable 07/22/18 05:47 Plt Morphology Comment Not Reportable 07/22/18 05:47 RBC Morphology Not Reportable 07/22/18 05:47 Dimorphic RBCs Not Reportable 07/22/18 05:47 Polychromasia Not Reportable 07/22/18 05:47 Hypochromasia Not Reportable 07/22/18 05:47 Poikilocytosis Not Reportable 07/22/18 05:47 Anisocytosis 1+ 07/22/18 05:47 Microcytosis Not Reportable 07/22/18 05:47 Macrocytosis Not Reportable 07/22/18 05:47 Spherocytes Not Reportable 07/22/18 05:47 Pappenheimer Bodies Not Reportable 07/22/18 05:47 Sickle Cells Not Reportable 07/22/18 05:47 Target Cells Not Reportable 07/22/18 05:47 Tear Drop Cells Not Reportable 07/22/18 05:47 Ovalocytes Not Reportable 07/22/18 05:47 Helmet Cells Not Reportable 07/22/18 05:47 Garcia-Sanborn Bodies Not Reportable 07/22/18 05:47 Keller Rings Not Reportable 07/22/18 05:47 Manas Cells Few 07/22/18 05:47 Bite Cells Not Reportable 07/22/18 05:47 Crenated Cell Not Reportable 07/22/18 05:47 Elliptocytes Not Reportable 07/22/18 05:47 Acanthocytes (Spur) Not Reportable 07/22/18 05:47 Rouleaux Not Reportable 07/22/18 05:47 Hemoglobin C Crystals Not Reportable 07/22/18 05:47 Schistocytes Rare 07/22/18 05:47 Malaria parasites Not Reportable 07/22/18 05:47 Luis Miguel Bodies Not Reportable 07/22/18 05:47 Hem Pathologist Commnt No 07/22/18 05:47 PT 13.6 Sec. (12.2-14.9) 07/20/18 16:03 INR 0.98 (0.87-1.13) 07/20/18 16:03 APTT 22.2 Sec. (24.2-36.6) L 07/20/18 16:03 VBG pH 7.312 (7.320-7.420) L 07/20/18 16:05 Sodium 139 mmol/L (137-145) 07/24/18 05:42 Potassium 4.8 mmol/L (3.6-5.0) 07/24/18 05:42 Chloride 108.7 mmol/L (98-107) H 07/24/18 05:42 Carbon Dioxide 21 mmol/L (22-30) L 07/24/18 05:42 Anion Gap 14 mmol/L 07/24/18 05:42 BUN 36 mg/dL (9-20) H 07/24/18 05:42 Creatinine 2.2 mg/dL (0.8-1.5) H 07/24/18 05:42 Estimated GFR 37 ml/min 07/24/18 05:42 BUN/Creatinine Ratio 16 % 07/24/18 05:42 Glucose 65 mg/dL (75-100) L 07/24/18 05:42 POC Glucose 153 (70-105) H 07/24/18 15:51 Hemoglobin A1c 11.4 % (4-6) H 07/20/18 16:03 Calcium 8.5 mg/dL (8.4-10.2) 07/24/18 05:42 Phosphorus 2.90 mg/dL (2.5-4.5) D 07/23/18 05:05 Magnesium 2.60 mg/dL (1.7-2.3) H 07/23/18 05:05 Iron 11 ug/dL (49-181) L 07/22/18 17:05 TIBC 182 mcg/dL (250-450) L 07/22/18 17:05 Ferritin 222.3 ng/mL (13.0-400.0) 07/22/18 17:05 Total Bilirubin 0.20 mg/dL (0.1-1.2) 07/21/18 06:50 AST 21 units/L (5-40) 07/21/18 06:50 ALT 11 units/L (7-56) 07/21/18 06:50 Alkaline Phosphatase 40 units/L (35-129) 07/21/18 06:50 Ammonia 32.0 umol/L (25-60) 07/20/18 16:05 Total Creatine Kinase 871 units/L (55-170) H 07/20/18 16:03 CK-MB (CK-2) 6.8 ng/mL (0.0-4.0) H 07/20/18 16:03 CK-MB (CK-2) Rel Index 0.7 (0-4) 07/20/18 16:03 Troponin T 0.036 ng/mL (0.00-0.029) H D 07/21/18 00:52 NT-Pro-B Natriuret Pep 207.6 pg/mL (0-900) 07/20/18 16:03 Total Protein 6.1 g/dL (6.3-8.2) L 07/21/18 06:50 Albumin 2.9 g/dL (3.9-5) L 07/21/18 06:50 Albumin/Globulin Ratio 0.9 % 07/21/18 06:50 Triglycerides 70 mg/dL (2-149) 07/20/18 16:03 Cholesterol 145 mg/dL (50-199) 07/20/18 16:03 LDL Cholesterol Direct 93 mg/dL (50-130) 07/20/18 16:03 HDL Cholesterol 52 mg/dL (40-59) 07/20/18 16:03 Cholesterol/HDL Ratio 2.78 % 07/20/18 16:03 PTH Intact 57.12 pg/mL (15-65) 07/22/18 05:47 Urine Color Yellow (Yellow) 07/21/18 12:48 Urine Turbidity Clear (Clear) 07/21/18 12:48 Urine pH 5.0 (5.0-7.0) 07/21/18 12:48 Ur Specific [place] 1.015 (1.003-1.030) 07/21/18 12:48 Urine Protein 100 mg/dl mg/dL (Negative) 07/21/18 12:48 Urine Glucose (UA) >=500 mg/dL (Negative) 07/21/18 12:48 Urine Ketones Neg mg/dL (Negative) 07/21/18 12:48 Urine Blood Sm (Negative) 07/21/18 12:48 Urine Nitrite Neg (Negative) 07/21/18 12:48 Urine Bilirubin Neg (Negative) 07/21/18 12:48 Urine Urobilinogen < 2.0 mg/dL (<2.0) 07/21/18 12:48 Ur Leukocyte Esterase Neg (Negative) 07/21/18 12:48 Urine WBC (Auto) 1.0 /HPF (0.0-6.0) 07/21/18 12:48 Urine RBC (Auto) 2.0 /HPF (0.0-6.0) 07/21/18 12:48 Plasma/Serum Alcohol < 0.01 % (0-0.07) 07/20/18 16:05 Blood Type O POSITIVE 07/20/18 16:05 Antibody Screen Negative 07/20/18 16:05 Crossmatch See Detail 07/20/18 16:05 Active Medications - Current Medications Current Medications: Generic Name Dose Route Start Last Admin Trade Name Freq PRN Reason Stop Dose Admin Acetaminophen 650 mg 07/20/18 18:31 Tylenol PO Q4H PRN Pain MILD(1-3)/Fever >100.5/PEDROZA Albuterol 2.5 mg 07/20/18 18:34 Proventil IH Q4HRT PRN Shortness Of Breath Albuterol/Ipratropium 1 ampul 07/20/18 20:00 07/24/18 13:17 Duoneb *Not For Prn Use* IH 1 ampul QIDRT NAEEM Administration Amlodipine Besylate 10 mg 07/21/18 18:00 07/24/18 09:54 Norvasc PO 10 mg QDAY NAEEM Administration Carvedilol 12.5 mg 07/21/18 11:00 07/24/18 09:54 Coreg PO 12.5 mg BID NAEEM Administration Ferrous Sulfate 325 mg 07/23/18 22:00 07/24/18 09:51 Feosol PO 325 mg BID NAEEM Administration Hydromorphone HCl 0.5 mg 07/20/18 18:31 Dilaudid IV Q3H PRN Pain , Severe (7-10) Azithromycin 500 mg/ Sodium 250 mls @ 250 mls/hr 07/21/18 18:00 07/23/18 17:08 Chloride IV 250 mls/hr Q24H NAEEM Administration Ceftriaxone Sodium 2 gm in 100 mls @ 200 mls/hr 07/21/18 18:00 07/23/18 17:02 Rocephin/Ns 2 Gm/100 Ml IV 200 mls/hr Q24H [facility] Administration Protocol Insulin Glargine 15 units 07/22/18 12:33 07/23/18 21:13 Lantus SUB-Q 15 units QHS [facility] Administration Insulin Human Lispro 5 unit 07/22/18 14:00 07/24/18 13:34 Humalog SUB-Q Not Given TID [facility] Insulin Human Regular 0 units 07/21/18 12:32 07/24/18 11:31 Humulin R SUB-Q Not Given ACHS [facility] Protocol Ondansetron HCl 4 mg 07/20/18 18:31 Zofran IV Q8H PRN Nausea And Vomiting Ondansetron HCl 8 mg 07/20/18 18:37 Zofran Odt PO Q8HR PRN Nausea Oxycodone/Acetaminophen 1 tab 07/20/18 18:31 Percocet 5/325 PO Q6H PRN Pain, Moderate (4-6) Pantoprazole Sodium 40 mg 07/22/18 15:00 07/24/18 09:51 Protonix IV 40 mg BID NAEEM Administration Polyethylene Glycol 17 gm 07/22/18 14:36 07/22/18 15:07 Miralax 3350 PO 17 gm QDAY PRN Administration Constipation Scopolamine 1 each 07/24/18 13:00 07/24/18 14:22 Transderm-Scop TD 1 each Q3D [facility] Administration Senna/Docusate Sodium 2 tab 07/24/18 22:00 Senokot S PO Q12HR [facility] Sodium Chloride 10 ml 07/20/18 22:00 07/24/18 09:52 Sodium Chloride Flush Syringe 10 Ml IV 10 ml BID NAEEM Administration Sodium Chloride 10 ml 07/20/18 18:31 04/30/19 21:08 Sodium Chloride Flush Syringe 10 Ml IV 10 ml PRN PRN Administration LINE FLUSH
[2018-07-24] MEDS: ROCEPHIN/NS 2 GM/100 ML 2 GM/100 ML BAG IV SCH (17:21)
[2018-07-24] MEDS: ZITHROMAX 500 MG in NACL 0.9% 250ML 250 ML IV SCH (17:54)
--- NOTE | 2018-07-24 19:55 | Progress Note ---
Assessment and Plan Patient awake and resting on 2 litres O2.Sitting up in chair. O2 saturation 93%.No acute respiratory distress. Denies chest pain or shortness of breath at this time.Patient afebrile and has no leukocytosis. Patient presently on zithromax and ceftrioxone. Chest xray reported worsening pulmonary infiltrates.Recommend to get CAT scan of chest with out contrast. - Patient Problems (1) Bilateral pneumonia Current Visit: Yes Status: Acute Qualifiers: Lung location: upper lobe of lung Plan to address problem: Patient is on ceftrioxone and zithromax. (2) Acute encephalopathy Current Visit: Yes Status: Acute Plan to address problem: Management as per primary care. (3) Hypoglycemia Current Visit: Yes Status: Acute Plan to address problem: Blood sugur dropped to 65 to day. Management as per primary care. (4) HTN (hypertension) Current Visit: Yes Status: Chronic Qualifiers: Hypertension type: essential hypertension Qualified Code(s): I10 - Essential (primary) hypertension Plan to address problem: Management as per primary care. (5) IDDM (insulin dependent diabetes mellitus) Current Visit: Yes Status: Chronic Plan to address problem: Management as per primary care. Subjective Date of service: 07/24/18 Principal diagnosis: anemia Interval history: Patient awake and resting on 2 litres O2.Sitting up in chair. O2 saturation 93%.No acute respiratory distress. Denies chest pain or shortness of breath at this time.Patient afebrile and has no leukocytosis. Patient presently on zithromax and ceftrioxone.Chest xray from to day reported worsening pulmonary i nfiltrate.Recommend to get CAT scan of chest with out contrast. Objective Vital Signs - 12hr 07/24/18 07/24/18 07/24/18 08:10 09:02 09:07 Temperature Pulse Rate 87 Pulse Rate [ 89 Anterior Bilateral Throughout] Respiratory 18 Rate Respiratory 18 Rate [Anterior Bilateral Throughout] Blood Pressure O2 Sat by Pulse Oximetry 07/24/18 07/24/18 07/24/18 09:11 09:54 10:00 Temperature Pulse Rate 89 Pulse Rate [ 90 Anterior Bilateral Throughout] Respiratory Rate Respiratory 18 Rate [Anterior Bilateral Throughout] Blood Pressure 148/84 O2 Sat by Pulse 97 Oximetry 07/24/18 07/24/18 07/24/18 11:32 13:17 13:27 Temperature 98.7 F Pulse Rate 91 H Pulse Rate [ 91 H 93 H Anterior Bilateral Throughout] Respiratory 18 Rate Respiratory 18 18 Rate [Anterior Bilateral Throughout] Blood Pressure 128/72 O2 Sat by Pulse 95 Oximetry 07/24/18 07/24/18 07/24/18 16:53 17:03 17:09 Temperature 98.5 F Pulse Rate 94 H Pulse Rate [ 94 H 96 H Anterior Bilateral Throughout] Respiratory 24 Rate Respiratory 18 18 Rate [Anterior Bilateral Throughout] Blood Pressure 156/86 O2 Sat by Pulse 93 Oximetry Constitutional: no acute distress, alert Eyes: non-icteric ENT: oropharynx moist Neck: supple, no JVD Ascultation: Bilateral: rhonchi Cardiovascular: regular rate and rhythm Gastrointestinal: normoactive bowel sounds, soft, non-tender Integumentary: normal Extremities: no cyanosis, no edema Neurologic: non-focal exam, pupils equal and round, CN II-XII normal Psychiatric: depressed CBC and BMP: 07/24/18 05:42 07/24/18 05:42 ABG, PT/INR, D-dimer: PT/INR, D-dimer PT 13.6 Sec. (12.2-14.9) 07/20/18 16:03 INR 0.98 (0.87-1.13) 07/20/18 16:03 Abnormal lab findings: Abnormal Labs 07/20/18 07/20/18 07/20/18 15:55 16:03 16:03 WBC RBC 5.29 H Hgb 15.3 H Hct 46.1 H RDW Lymph % (Auto) 5.9 L Lymph # 0.4 L Seg Neutrophils % 89.9 H Seg Neuts % (Manual) Lymphocytes % (Manual) Seg Neutrophils # Seg Neutrophils # Man Lymphocytes # (Manual) APTT 22.2 L VBG pH Sodium Chloride Carbon Dioxide BUN Creatinine Glucose POC Glucose < 40 L Hemoglobin A1c Calcium Phosphorus Magnesium Iron TIBC Total Creatine Kinase CK-MB (CK-2) Troponin T Total Protein Albumin Crossmatch 07/20/18 07/20/18 07/20/18 16:03 16:03 16:05 WBC RBC Hgb Hct RDW Lymph % (Auto) Lymph # Seg Neutrophils % Seg Neuts % (Manual) Lymphocytes % (Manual) Seg Neutrophils # Seg Neutrophils # Man Lymphocytes # (Manual) APTT VBG pH 7.312 L Sodium Chloride Carbon Dioxide BUN 39 H Creatinine 2.5 H Glucose 31 L* POC Glucose Hemoglobin A1c 11.4 H Calcium Phosphorus Magnesium Iron TIBC Total Creatine Kinase 871 H CK-MB (CK-2) 6.8 H Troponin T 0.036 H Total Protein Albumin 3.4 L Crossmatch 07/20/18 07/20/18 07/20/18 16:05 16:20 18:17 WBC RBC Hgb Hct RDW Lymph % (Auto) Lymph # Seg Neutrophils % Seg Neuts % (Manual) Lymphocytes % (Manual) Seg Neutrophils # Seg Neutrophils # Man Lymphocytes # (Manual) APTT VBG pH Sodium Chloride Carbon Dioxide BUN Creatinine Glucose POC Glucose 181 H 53 L Hemoglobin A1c Calcium Phosphorus Magnesium Iron TIBC Total Creatine Kinase CK-MB (CK-2) Troponin T Total Protein Albumin Crossmatch See Detail 07/20/18 07/20/18 07/21/18 20:17 21:34 00:52 WBC RBC Hgb Hct RDW Lymph % (Auto) Lymph # Seg Neutrophils % Seg Neuts % (Manual) Lymphocytes % (Manual) Seg Neutrophils # Seg Neutrophils # Man Lymphocytes # (Manual) APTT VBG pH Sodium Chloride Carbon Dioxide BUN Creatinine Glucose POC Glucose 296 H 281 H Hemoglobin A1c Calcium Phosphorus Magnesium Iron TIBC Total Creatine Kinase CK-MB (CK-2) Troponin T 0.036 H D Total Protein Albumin Crossmatch 07/21/18 07/21/18 07/21/18 05:23 06:50 06:50 WBC 12.9 H RBC 2.99 L Hgb 8.4 L D Hct 26.0 L D RDW Lymph % (Auto) Lymph # Seg Neutrophils % Seg Neuts % (Manual) Lymphocytes % (Manual) Seg Neutrophils # 11.5 H Seg Neutrophils # Man 8.0 H Lymphocytes # (Manual) APTT VBG pH Sodium Chloride Carbon Dioxide 21 L BUN 38 H Creatinine 2.2 H Glucose 250 H POC Glucose 244 H Hemoglobin A1c Calcium 8.3 L Phosphorus Magnesium Iron TIBC Total Creatine Kinase CK-MB (CK-2) Troponin T Total Protein 6.1 L Albumin 2.9 L Crossmatch 07/21/18 07/21/18 07/21/18 10:49 12:16 16:28 WBC 13.9 H RBC 2.99 L Hgb 8.5 L Hct 25.9 L RDW Lymph % (Auto) Lymph # Seg Neutrophils % Seg Neuts % (Manual) Lymphocytes % (Manual) Seg Neutrophils # Seg Neutrophils # Man Lymphocytes # (Manual) APTT VBG pH Sodium Chloride Carbon Dioxide BUN Creatinine Glucose POC Glucose 406 H 316 H Hemoglobin A1c Calcium Phosphorus Magnesium Iron TIBC Total Creatine Kinase CK-MB (CK-2) Troponin T Total Protein Albumin Crossmatch 07/21/18 07/22/18 07/22/18 21:08 05:47 05:47 WBC RBC 2.10 L Hgb 6.1 L Hct 19.0 L* D RDW 15.3 H Lymph % (Auto) Lymph # Seg Neutrophils % Seg Neuts % (Manual) 84.0 H Lymphocytes % (Manual) 0 L Seg Neutrophils # Seg Neutrophils # Man 8.0 H Lymphocytes # (Manual) 0.0 L APTT VBG pH Sodium Chloride 94.2 L Carbon Dioxide BUN 29 H Creatinine 1.6 H Glucose 232 H POC Glucose 131 H Hemoglobin A1c Calcium Phosphorus 1.70 L Magnesium 1.30 L Iron TIBC Total Creatine Kinase CK-MB (CK-2) Troponin T Total Protein Albumin Crossmatch 07/22/18 07/22/18 07/22/18 08:09 11:48 16:17 WBC RBC Hgb Hct RDW Lymph % (Auto) Lymph # Seg Neutrophils % Seg Neuts % (Manual) Lymphocytes % (Manual) Seg Neutrophils # Seg Neutrophils # Man Lymphocytes # (Manual) APTT VBG pH Sodium Chloride Carbon Dioxide BUN Creatinine Glucose POC Glucose 282 H 336 H 271 H Hemoglobin A1c Calcium Phosphorus Magnesium Iron TIBC Total Creatine Kinase CK-MB (CK-2) Troponin T Total Protein Albumin Crossmatch 07/22/18 07/22/18 07/22/18 17:00 17:05 20:59 WBC RBC Hgb 8.2 L Hct 25.0 L D RDW Lymph % (Auto) Lymph # Seg Neutrophils % Seg Neuts % (Manual) Lymphocytes % (Manual) Seg Neutrophils # Seg Neutrophils # Man Lymphocytes # (Manual) APTT VBG pH Sodium Chloride Carbon Dioxide BUN Creatinine Glucose POC Glucose 380 H Hemoglobin A1c Calcium Phosphorus Magnesium Iron 11 L TIBC 182 L Total Creatine Kinase CK-MB (CK-2) Troponin T Total Protein Albumin Crossmatch 07/22/18 07/23/18 07/23/18 23:49 02:41 05:05 WBC RBC Hgb Hct RDW Lymph % (Auto) Lymph # Seg Neutrophils % Seg Neuts % (Manual) Lymphocytes % (Manual) Seg Neutrophils # Seg Neutrophils # Man Lymphocytes # (Manual) APTT VBG pH Sodium 136 L Chloride Carbon Dioxide BUN 39 H Creatinine 2.2 H Glucose 260 H POC Glucose 372 H 279 H Hemoglobin A1c Calcium Phosphorus Magnesium 2.60 H Iron TIBC Total Creatine Kinase CK-MB (CK-2) Troponin T Total Protein Albumin Crossmatch 07/23/18 07/23/18 07/23/18 07:45 10:04 11:40 WBC RBC 2.86 L Hgb 8.3 L Hct 24.8 L RDW Lymph % (Auto) Lymph # Seg Neutrophils % Seg Neuts % (Manual) Lymphocytes % (Manual) Seg Neutrophils # Seg Neutrophils # Man Lymphocytes # (Manual) APTT VBG pH Sodium Chloride Carbon Dioxide BUN Creatinine Glucose POC Glucose 239 H 191 H Hemoglobin A1c Calcium Phosphorus Magnesium Iron TIBC Total Creatine Kinase CK-MB (CK-2) Troponin T Total Protein Albumin Crossmatch 07/23/18 07/24/18 07/24/18 21:12 05:42 05:42 WBC RBC 2.68 L Hgb 7.8 L Hct 23.3 L RDW Lymph % (Auto) Lymph # Seg Neutrophils % Seg Neuts % (Manual) Lymphocytes % (Manual) Seg Neutrophils # Seg Neutrophils # Man Lymphocytes # (Manual) APTT VBG pH Sodium Chloride 108.7 H Carbon Dioxide 21 L BUN 36 H Creatinine 2.2 H Glucose 65 L POC Glucose 285 H Hemoglobin A1c Calcium Phosphorus Magnesium Iron TIBC Total Creatine Kinase CK-MB (CK-2) Troponin T Total Protein Albumin Crossmatch 07/24/18 07/24/18 07/24/18 07:35 11:28 15:51 WBC RBC Hgb Hct RDW Lymph % (Auto) Lymph # Seg Neutrophils % Seg Neuts % (Manual) Lymphocytes % (Manual) Seg Neutrophils # Seg Neutrophils # Man Lymphocytes # (Manual) APTT VBG pH Sodium Chloride Carbon Dioxide BUN Creatinine Glucose POC Glucose 62 L 148 H 153 H Hemoglobin A1c Calcium Phosphorus Magnesium Iron TIBC Total Creatine Kinase CK-MB (CK-2) Troponin T Total Protein Albumin Crossmatch Chest x-ray: report reviewed, image reviewed Additional Studies: Chest xray done on 07/24/18 IMPRESSION: Persistent and slightly worse multilobar airspace disease.The asymmetric pattern is not typical for pulmonary edema and is more consistent with pneumonia
[2018-07-24] MEDS: LANTUS SUB-Q SCH (21:27)
[2018-07-25 06:25] LABS: Calcium 8.7 mg/dL (8.4-10.2)
[2018-07-25] MEDS: HumuLIN R SUB-Q SCH ×4 (08:30→21:17)
[2018-07-25] MEDS: HumaLOG SUB-Q SCH ×3 (08:30→21:16)
[2018-07-25] MEDS: DUONEB *Not for PRN Use IH SCH ×4 (08:49→20:53)
[2018-07-25 08:51] LABS: Hematocrit 26.2 % (35.5-45.6); Hemoglobin 8.7 gm/dl (11.8-15.2)
[2018-07-25] MEDS: PROTONIX IV SCH ×2 (09:00→21:16)
--- NOTE | 2018-07-25 09:36 | Progress Note ---
Assessment and Plan 1. Acute kidney injury: Vasomotor AISHA superimposed on CKD stage 3 in the setting of volume depletion. Urine studies pending. Renal US negative for hydro. Creatinine level is better today. Monitor renal function. Renal prognosis is guarded. Avoid nephrotoxic agents. Meds dosage based on GFR. 2. FEN: Monitor lytes and volume status. 3. Bilateral PNA. 4. Hypoxic respiratory failure: 2/2 PNA. Followed by Pulmonary. 5. Acute encephalopathy: Improved. 6. Anemia: S/p PRBC. S/p EGD. 7. DM type 2. 8. HTN. Also d/w his at the bedside. Subjective Date of service: 07/25/18 Principal diagnosis: anemia Interval history: Patient was seen and examined at the bedside. Objective - Vital Signs Vital signs: Vital Signs - 12hr 07/24/18 07/25/18 07/25/18 23:08 03:36 04:00 Temperature 99.1 F 99.2 F Pulse Rate 97 H 90 90 Pulse Rate [ Anterior Bilateral Throughout] Respiratory 16 16 Rate Respiratory Rate [Anterior Bilateral Throughout] Blood Pressure 139/84 140/75 O2 Sat by Pulse 92 94 Oximetry 07/25/18 07/25/18 07/25/18 08:00 08:48 08:54 Temperature 98.7 F Pulse Rate 90 Pulse Rate [ 92 H Anterior Bilateral Throughout] Respiratory 20 Rate Respiratory 20 Rate [Anterior Bilateral Throughout] Blood Pressure 151/91 O2 Sat by Pulse 97 99 Oximetry 07/25/18 09:01 Temperature Pulse Rate Pulse Rate [ 93 H Anterior Bilateral Throughout] Respiratory Rate Respiratory 19 Rate [Anterior Bilateral Throughout] Blood Pressure O2 Sat by Pulse Oximetry - General Appearance General appearance: well-developed, well-nourished, appears stated age, other (not in distress) EENT: ATNC, PERRL, mucous membranes moist, hearing intact, vision intact Neck: supple Respiratory: Present: Clear to Ascultation Cardiology: regular, S1S2, no murmurs Gastrointestinal: normoactive bowel sounds, no tenderness, no distended Integumentary: no rash, warm and dry Neurologic: no focal deficit, no asterixis, alert and oriented x3, other (dysphonia noted) Musculoskeletal: other (no edema) - Lab 07/25/18 08:23 07/25/18 13:08 Most recent lab results Calcium 8.7 mg/dL (8.4-10.2) 07/25/18 05:15 Phosphorus 2.90 mg/dL (2.5-4.5) D 07/23/18 05:05 Magnesium 2.60 mg/dL (1.7-2.3) H 07/23/18 05:05 Medications & Allergies - Medications Allergies/Adverse Reactions: Allergies No Known Allergies Allergy (Unverified 01/01/17 10:41) Home Medications: Home Medications Medication Instructions Recorded Confirmed Last Taken Type Insulin Aspart [NovoLOG 100 See Protocol SQ ACHS 07/20/18 07/20/18 07/19/18 History UNITS/ML VIAL] Insulin Glargine,Hum.rec.anlog 30 units SQ HS 07/20/18 07/20/18 07/19/18 History [Lantus] ALBUTEROL NEB's [Proventil 0.083% 2.5 mg IH Q4HRT PRN #30 nebu 07/25/18 Unknown Rx NEBS] Carvedilol [Coreg] 12.5 mg PO BID #60 tablet 07/25/18 Unknown Rx Ferrous Sulfate [Feosol 325 MG tab] 325 mg PO BID #60 tablet 07/25/18 Unknown Rx HYDROcodone/HOMATROP 5-1.5 5 ml PO Q4HR PRN 5 Days oz 07/25/18 Unknown Rx [HYDROcodone-Homatropin 5-1.5 mg per 5 ML] Ondansetron [Zofran ODT TAB] 8 mg PO Q8HR PRN #30 tab.rapdis 07/25/18 Unknown Rx Pantoprazole [Protonix TAB] 40 mg PO QDAY #30 tablet 07/25/18 Unknown Rx amLODIPine [Norvasc] 10 mg PO QDAY #30 tablet 07/25/18 Unknown Rx levoFLOXacin [Levaquin] 750 mg PO QDAY #5 tablet 07/25/18 Unknown Rx Active Medications: Generic Name Dose Route Start Last Admin Trade Name Freq PRN Reason Stop Dose Admin Acetaminophen 650 mg 07/20/18 18:31 Tylenol PO Q4H PRN Pain MILD(1-3)/Fever >100.5/PEDROZA Albuterol 2.5 mg 07/20/18 18:34 Proventil IH Q4HRT PRN Shortness Of Breath Albuterol/Ipratropium 1 ampul 07/20/18 20:00 07/25/18 08:49 Duoneb *Not For Prn Use* IH 1 ampul QIDRT NAEEM Administration Amlodipine Besylate 10 mg 07/21/18 18:00 07/24/18 09:54 Norvasc PO 10 mg QDAY NAEEM Administration Carvedilol 12.5 mg 07/21/18 11:00 07/24/18 21:26 Coreg PO 12.5 mg BID [facility] Administration Ferrous Sulfate 325 mg 07/23/18 22:00 07/24/18 21:27 Feosol PO 325 mg BID [facility] Administration Hydromorphone HCl 0.5 mg 07/20/18 18:31 Dilaudid IV Q3H PRN Pain , Severe (7-10) Azithromycin 500 mg/ Sodium 250 mls @ 250 mls/hr 07/21/18 18:00 07/24/18 17:54 Chloride IV 250 mls/hr Q24H [facility] Administration Ceftriaxone Sodium 2 gm in 100 mls @ 200 mls/hr 07/21/18 18:00 07/24/18 17:21 Rocephin/Ns 2 Gm/100 Ml IV 200 mls/hr Q24H [facility] Administration Protocol Insulin Glargine 15 units 07/22/18 12:33 07/24/18 21:27 Lantus SUB-Q 15 units QHS [facility] Administration Insulin Human Lispro 5 unit 07/22/18 14:00 07/25/18 08:30 Humalog SUB-Q Not Given TID [facility] Insulin Human Regular 0 units 07/21/18 12:32 07/25/18 08:30 Humulin R SUB-Q Not Given ACHS [facility] Protocol Ondansetron HCl 4 mg 07/20/18 18:31 Zofran IV Q8H PRN Nausea And Vomiting Ondansetron HCl 8 mg 07/20/18 18:37 Zofran Odt PO Q8HR PRN Nausea Oxycodone/Acetaminophen 1 tab 07/20/18 18:31 Percocet 5/325 PO Q6H PRN Pain, Moderate (4-6) Pantoprazole Sodium 40 mg 07/22/18 15:00 07/24/18 22:11 Protonix IV Not Given BID [facility] Polyethylene Glycol 17 gm 07/22/18 14:36 07/22/18 15:07 Miralax 3350 PO 17 gm QDAY PRN Administration Constipation Scopolamine 1 each 07/24/18 13:00 07/24/18 14:22 Transderm-Scop TD 1 each Q3D NAEEM Administration Senna/Docusate Sodium 2 tab 07/24/18 22:00 07/24/18 22:00 Senokot S PO Not Given Q12HR NAEEM Sodium Chloride 10 ml 07/20/18 22:00 07/24/18 22:11 Sodium Chloride Flush Syringe 10 Ml IV Not Given BID NAEEM Sodium Chloride 10 ml 07/20/18 18:31 07/23/18 21:08 Sodium Chloride Flush Syringe 10 Ml IV 10 ml PRN PRN Administration LINE FLUSH
[2018-07-25] MEDS: SENOKOT S PO SCH ×2 (10:00→21:23)
[2018-07-25] MEDS: SODIUM CHLORIDE FLUSH SYRINGE 10 ML IV SCH ×2 (10:00→21:16)
[2018-07-25] MEDS ORDERED: WATER FOR IRRIG STERILE IR ONE (10:02)
--- NOTE | 2018-07-25 10:54 | Discharge Summary ---
Providers - Providers Date of Admission: 07/20/18 18:31 Attending physician: WOOD MEDLEY MD 07/20/18 18:31 Consult to Physician [CONS] Routine Comment: Consulting Provider: DANIELITO TUCKER Physician Instructions: Reason For Exam: vazquez pna 07/21/18 06:45 Consult to Physician [CONS] Routine Comment: Consulting Provider: OLIVA AGUIRRE Physician Instructions: Reason For Exam: sachin 07/22/18 14:01 Physical Therapy Evaluation and Treat [CONS] Routine Comment: Reason For Exam: generalized weakness 07/22/18 14:41 Consult to Physician [CONS] Routine Comment: Consulting Provider: RUSH FALL Physician Instructions: Reason For Exam: acute anemia 07/24/18 12:06 Speech Therapy Evaluation and Treat [CONS] Routine Reason For Exam: odynophagia Primary care physician: MOLD MAKER APPRENTICE Hospitalization Reason for admission: [facility] Hospital course: 62-year-old AAM with pmh of Htn and IDDM presenting with chief complaint of cough and altered mental status. As per at bedside patient has been coughing for 1 week and occasionally blood tinged sputum while coughing.Also slightly confused.Poor Historian.SOB and low grade fever present.No exacerbating or relieving factors. Patients treatment and plan was as documented below. 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 He had swallow evaluation done. Patient is hypernasal with a complaint of nasal regurgitation which was not present during this evaluation. He exhibits decreased laryngeal excursion with a complaint of a globus sensation in the pharynx. With use of the chin tuck, the globus sensation is alleviated. ENT was recommended outpatient. Bilateral pneumonia -Treated with abx, culutres did not reveal any growth. Acute on chronic anemia -Patient's baseline Hemoglobin is 11. now down to 7.8 -stool for occult blood neg -On oral iron tablet due to low iron level -Discussed with GI, will proceed with Endoscopy Findings: 1. Scattered yellowish plaques in mid-esophagus. Biopsied. 2. Otherwise normal EGD. Mildly elevated troponin -Stress test cancelled by cardiology due to anemia -pt denies chest pain. -OUTPATIENT EVALUATION RECOMMENDED Acute on CKD stage 3 -Creatinine level stable -Renal US negative for hydronephrosis -Nephrology following DM2 with current hyperglycemia -BG improving on current insulin regimen, adjust as needed Hypertension -Controlled on amlodipine Acute metabolic encephalopathy -Due to hypoglycemia versus infection -Resolved Metabolic acidosis -Likely due to renal impairment, resolved Hypomagnesemia/Hypophosphatemia -Resolved status post repletion History of throat cancer -Status post surgery/radiation/chemo -For outpatient follow-up Physical deconditioning -PT consulted. Disposition: - TO HOME OR SELFCARE Time spent for discharge: 35 mins Core Measure Documentation - Palliative Care Palliative Care/ Comfort Measures: Not Applicable - Core Measures Any of the following diagnoses?: none - VTE Discharge Requirements Deep Vein Thrombosis/Pulmonary Embolism Present on Admission: No Exam - Physical Exam Narrative exam: General appearance: Present: no acute distress, well-nourished, - EENT Eyes: Present: PERRL, EOM intact ENT: hearing intact, clear oral mucosa - Neck Neck: Present: supple, congested sounds - Respiratory Respiratory effort: normal Respiratory: bilateral: CTA - Cardiovascular Rhythm: regular Heart Sounds: Present: S1 & S2 - Extremities Extremities: No edema - Abdominal General gastrointestinal: soft, non-tender, non-distended, normal bowel sounds - Integumentary Integumentary: Present: clear, warm, dry - Neurologic Neurologic: CNII-XII intact - Constitutional Vitals: Temp Pulse Resp BP Pulse Ox 98.4 F 92 H 22 161/90 97 07/25/18 09:45 07/25/18 09:45 07/25/18 09:45 07/25/18 09:45 07/25/18 09:45 Plan Activity: advance as tolerated, fall precautions Diet: per dietitian instruction, advance as tolerated Special Instructions: record daily weights, record daily BP diary, physical therapy, occupational therapy, other (speech therapy) Additional Instructions: Must follow with ENT and also Pulmonary for possible bronchoscopy considering pulmonary infiltrates. Patient and spouse verbalized understanding Follow up with: PRIMARY CAREMD [Primary Care Provider] - 7 Days WALTER PELAYO MD [Staff Physician] - 14 Days JEFFERSON SOSA MD [Staff Physician] - 7 Days Forms: Accompanied Note Prescriptions: Carvedilol [Coreg] 12.5 mg PO BID #60 tablet Ferrous Sulfate [Feosol 325 MG tab] 325 mg PO BID #60 tablet HYDROcodone/HOMATROP 5-1.5 [HYDROcodone-Homatropin 5-1.5 mg per 5 ML] 5 ml PO Q4HR PRN 5 Days oz PRN Reason: Cough levoFLOXacin [Levaquin] 750 mg PO QDAY #5 tablet amLODIPine [Norvasc] 10 mg PO QDAY #30 tablet Pantoprazole [Protonix TAB] 40 mg PO QDAY #30 tablet ALBUTEROL NEB's [Proventil 0.083% NEBS] 2.5 mg IH Q4HRT PRN #30 nebu PRN Reason: Shortness Of Breath Ondansetron [Zofran ODT TAB] 8 mg PO Q8HR PRN #30 tab.rapdis PRN Reason: Nausea
[2018-07-25] MEDS ORDERED: NACL 0.9% 500 ML 500 ML IV ONE (11:03)
[2018-07-25] MEDS ORDERED: DIPRIVAN 10 MG/ML IV ONE (11:08)
--- NOTE | 2018-07-25 11:36 | Post Operative Note ---
Pre-op diagnosis: Bloody emesis, iron deficiency anemia Post-op diagnosis: other (Mild esophagitis) Findings: 1. Scattered yellowish plaques in mid-esophagus. Biopsied. 2. Otherwise normal EGD. Procedure: EGD with biopsy Anesthesia: MAC Surgeon: RUSH FALL Estimated blood loss: none Pathology: list (1. Mid-esophagus) Specimen disposition: to lab Condition: stable Disposition: floor (July D/C from GI standpoint on oral iron, and monitor H/H for response)
--- NOTE | 2018-07-25 12:24 | Anesthesia Day of Surgery ---
Anesthesia Day of Surgery - Day of Surgery Patient Examined: Yes Patient H&P Reviewed: Yes Patient is NPO: Yes
--- NOTE | 2018-07-25 12:26 | Anesthesia Consultation ---
Anesthesia Consult and Med Hx Date of service: 07/25/18 - Airway Anesthetic Teeth Evaluation: Good ROM Head & Neck: Adequate Mental/Hyoid Distance: Adequate Mallampati Class: Class II Intubation Access Assessment: Probably Good - Pre-Operative Health Status ASA Pre-Surgery Classification: ASA3 Proposed Anesthetic Plan: MAC - Pulmonary Hx Pneumonia: Yes (recent bilateral pnuemonia. on antibiotics) - Cardiovascular System Hx Hypertension: Yes - Endocrine Hx Renal Disease: Yes (stage 3) Hx Non-Insulin Dependent Diabetes: Yes - Additional Comments Anesthesia Medical History Comments: hx of throat cancer with chemo/radiation.
--- NOTE | 2018-07-25 12:54 | Operative Report ---
PROCEDURE: Upper endoscopy with biopsy. PREOPERATIVE DIAGNOSES: Iron deficiency anemia and blood in emesis. POSTOPERATIVE DIAGNOSIS: Mild mid esophagitis. SEDATION: MAC by Anesthesia. HISTORY: The patient is a 62-year-old man with history of ENT cancer, who presented with pneumonia. He has cough with streaks of blood and emesis with streaks of blood at times. Stool is Hemoccult negative. DESCRIPTION OF PROCEDURE: Procedure, indications, risks, and benefits were explained and consent was obtained. The patient was placed in left lateral decubitus position and sedated. [email or web address] video upper scope was passed through the mouth and oropharynx into the descending duodenum and then gradually withdrawn with close inspection of the mucosa. FINDINGS: 1. Few scattered yellow plaques in the mid esophagus -- biopsied. 2. Otherwise, normal esophagus. 3. Normal appearing gastric antrum, fundus, body, and cardia. 4. Normal appearing duodenal bulb and duodenum. The patient tolerated the procedure well without immediate complications. IMPRESSION: 1. Mid esophageal plaques -- biopsied. 2. Otherwise, normal endoscopy with no evidence of bleeding source. PLAN: 1. Advance diet. 2. Initiate oral iron and monitor H and H as an outpatient. JOB# [id number] HRC/NTS
[2018-07-25] MEDS: NORVASC PO SCH (15:00)
[2018-07-25] MEDS: FEOSOL PO SCH ×2 (15:00→21:16)
[2018-07-25] MEDS: COREG PO SCH ×2 (15:00→21:16)
--- NOTE | 2018-07-25 15:16 | Progress Note ---
Assessment and Plan Bilateral pneumonia (CAP) Acute encephalopathy Hypoglycemia HTN (hypertension) IDDM (insulin dependent diabetes mellitus) (Im bothered about non infectious pneumonia at play vs other etiology for infiltrates) - get 2D ECHO and optimize cardiac function as necessary - send sputum C&S - supplemental oxygen as needed to keep O2 sat's > 90% - GI & VTE prophylaxis - bronchodilators with pulmonary hygiene per RT - s/p EGD with Esophageal biopsies taken - optimize renal function per labor gang supervisor - gentle hydration while watching for pulmonary edema - PT/OT as tolerated - states that he has had extended outpatient ENT w/up (apparently h/o throat cancer) - continue other care per attending / other consultants .... re-evaluate in am & prn Subjective Date of service: 07/25/18 Principal diagnosis: Jovi PNA (CAP); Acute encephalopathy; Hypoglycemia; HTN; IDDM Interval history: Patient is seen today for: Bilateral pneumonia (CAP); Acute encephalopathy; Hypoglycemia; HTN (hypertension); IDDM (insulin dependent diabetes mellitus) Seen and examined at bedside; 24hour events reviewed; nursing and respiratory care staff consulted; no adverse overnight events reported to me; resting in bed; still SOB; still with hoarse voice; denies acute chest pains or palpitations; denies leg pain or swelling; denies prior cardiac history Objective Vital Signs - 12hr 07/25/18 07/25/18 07/25/18 03:36 04:00 08:00 Temperature 99.2 F 98.7 F Pulse Rate 90 90 90 Pulse Rate [ Anterior Bilateral Throughout] Respiratory 16 20 Rate Respiratory Rate [Anterior Bilateral Throughout] Blood Pressure 140/75 151/91 O2 Sat by Pulse 94 97 Oximetry 07/25/18 07/25/18 07/25/18 08:48 08:54 09:01 Temperature Pulse Rate Pulse Rate [ 92 H 93 H Anterior Bilateral Throughout] Respiratory Rate Respiratory 20 19 Rate [Anterior Bilateral Throughout] Blood Pressure O2 Sat by Pulse 99 Oximetry 07/25/18 07/25/18 07/25/18 09:45 11:33 11:45 Temperature 98.4 F 98.5 F Pulse Rate 92 H 86 90 Pulse Rate [ Anterior Bilateral Throughout] Respiratory 22 20 20 Rate Respiratory Rate [Anterior Bilateral Throughout] Blood Pressure 161/90 146/80 158/87 O2 Sat by Pulse 97 96 98 Oximetry 07/25/18 07/25/18 07/25/18 11:55 12:41 15:00 Temperature 98.2 F Pulse Rate 90 89 93 H Pulse Rate [ Anterior Bilateral Throughout] Respiratory 17 18 Rate Respiratory Rate [Anterior Bilateral Throughout] Blood Pressure 148/79 167/92 167/92 O2 Sat by Pulse 100 91 Oximetry 07/25/18 07/25/18 15:04 15:06 Temperature Pulse Rate Pulse Rate [ 94 H Anterior Bilateral Throughout] Respiratory Rate Respiratory 17 Rate [Anterior Bilateral Throughout] Blood Pressure O2 Sat by Pulse 81 L Oximetry Constitutional: no acute distress, alert, other (elderly looking AAM with mildly increased resp effort at rest) Eyes: non-icteric ENT: oropharynx moist Neck: supple, no JVD, other (no thyromegaly) Ascultation: Bilateral: rales Percussion: Bilateral: not dull Cardiovascular: regular rate and rhythm, other (No R/M) Gastrointestinal: normoactive bowel sounds, soft, non-tender, non-distended Integumentary: normal Extremities: no cyanosis, no edema, pulses normal, no ischemia or petechiae Neurologic: normal mental status, non-focal exam, pupils equal and round, CN II- XII normal, motor strength normal and Psychiatric: mood appropriate, affect normal CBC and BMP: 07/25/18 08:23 07/25/18 13:08 ABG, PT/INR, D-dimer: PT/INR, D-dimer PT 13.6 Sec. (12.2-14.9) 07/20/18 16:03 INR 0.98 (0.87-1.13) 07/20/18 16:03 Abnormal lab findings: Abnormal Labs 07/20/18 07/20/18 07/20/18 15:55 16:03 16:03 WBC RBC 5.29 H Hgb 15.3 H Hct 46.1 H RDW Lymph % (Auto) 5.9 L Lymph # 0.4 L Seg Neutrophils % 89.9 H Seg Neuts % (Manual) Lymphocytes % (Manual) Seg Neutrophils # Seg Neutrophils # Man Lymphocytes # (Manual) Haptoglobin APTT 22.2 L VBG pH Sodium Chloride Carbon Dioxide BUN Creatinine Glucose POC Glucose < 40 L Hemoglobin A1c Calcium Phosphorus Magnesium Iron TIBC Total Creatine Kinase CK-MB (CK-2) Troponin T Total Protein Albumin Crossmatch 07/20/18 07/20/1819 16:03 16:03 16:05 WBC RBC Hgb Hct RDW Lymph % (Auto) Lymph # Seg Neutrophils % Seg Neuts % (Manual) Lymphocytes % (Manual) Seg Neutrophils # Seg Neutrophils # Man Lymphocytes # (Manual) Haptoglobin APTT VBG pH 7.312 L Sodium Chloride Carbon Dioxide BUN 39 H Creatinine 2.5 H Glucose 31 L* POC Glucose Hemoglobin A1c 11.4 H Calcium Phosphorus Magnesium Iron TIBC Total Creatine Kinase 871 H CK-MB (CK-2) 6.8 H Troponin T 0.036 H Total Protein Albumin 3.4 L Crossmatch 07/20/18 07/20/18 07/20/18 16:05 16:20 18:17 WBC RBC Hgb Hct RDW Lymph % (Auto) Lymph # Seg Neutrophils % Seg Neuts % (Manual) Lymphocytes % (Manual) Seg Neutrophils # Seg Neutrophils # Man Lymphocytes # (Manual) Haptoglobin APTT VBG pH Sodium Chloride Carbon Dioxide BUN Creatinine Glucose POC Glucose 181 H 53 L Hemoglobin A1c Calcium Phosphorus Magnesium Iron TIBC Total Creatine Kinase CK-MB (CK-2) Troponin T Total Protein Albumin Crossmatch See Detail 07/20/18 07/20/18 07/21/18 20:17 21:34 00:52 WBC RBC Hgb Hct RDW Lymph % (Auto) Lymph # Seg Neutrophils % Seg Neuts % (Manual) Lymphocytes % (Manual) Seg Neutrophils # Seg Neutrophils # Man Lymphocytes # (Manual) Haptoglobin APTT VBG pH Sodium Chloride Carbon Dioxide BUN Creatinine Glucose POC Glucose 296 H 281 H Hemoglobin A1c Calcium Phosphorus Magnesium Iron TIBC Total Creatine Kinase CK-MB (CK-2) Troponin T 0.036 H D Total Protein Albumin Crossmatch 07/21/18 07/21/18 07/21/18 05:23 06:50 06:50 WBC 12.9 H RBC 2.99 L Hgb 8.4 L D Hct 26.0 L D RDW Lymph % (Auto) Lymph # Seg Neutrophils % Seg Neuts % (Manual) Lymphocytes % (Manual) Seg Neutrophils # 11.5 H Seg Neutrophils # Man 8.0 H Lymphocytes # (Manual) Haptoglobin APTT VBG pH Sodium Chloride Carbon Dioxide 21 L BUN 38 H Creatinine 2.2 H Glucose 250 H POC Glucose 244 H Hemoglobin A1c Calcium 8.3 L Phosphorus Magnesium Iron TIBC Total Creatine Kinase CK-MB (CK-2) Troponin T Total Protein 6.1 L Albumin 2.9 L Crossmatch 07/21/18 07/21/18 07/21/18 10:49 12:16 16:28 WBC 13.9 H RBC 2.99 L Hgb 8.5 L Hct 25.9 L RDW Lymph % (Auto) Lymph # Seg Neutrophils % Seg Neuts % (Manual) Lymphocytes % (Manual) Seg Neutrophils # Seg Neutrophils # Man Lymphocytes # (Manual) Haptoglobin APTT VBG pH Sodium Chloride Carbon Dioxide BUN Creatinine Glucose POC Glucose 406 H 316 H Hemoglobin A1c Calcium Phosphorus Magnesium Iron TIBC Total Creatine Kinase CK-MB (CK-2) Troponin T Total Protein Albumin Crossmatch 07/21/18 07/22/18 07/22/18 21:08 05:47 05:47 WBC RBC 2.10 L Hgb 6.1 L Hct 19.0 L* D RDW 15.3 H Lymph % (Auto) Lymph # Seg Neutrophils % Seg Neuts % (Manual) 84.0 H Lymphocytes % (Manual) 0 L Seg Neutrophils # Seg Neutrophils # Man 8.0 H Lymphocytes # (Manual) 0.0 L Haptoglobin APTT VBG pH Sodium Chloride 94.2 L Carbon Dioxide BUN 29 H Creatinine 1.6 H Glucose 232 H POC Glucose 131 H Hemoglobin A1c Calcium Phosphorus 1.70 L Magnesium 1.30 L Iron TIBC Total Creatine Kinase CK-MB (CK-2) Troponin T Total Protein Albumin Crossmatch 07/22/18 07/22/18 07/22/18 08:09 11:48 16:17 WBC RBC Hgb Hct RDW Lymph % (Auto) Lymph # Seg Neutrophils % Seg Neuts % (Manual) Lymphocytes % (Manual) Seg Neutrophils # Seg Neutrophils # Man Lymphocytes # (Manual) Haptoglobin APTT VBG pH Sodium Chloride Carbon Dioxide BUN Creatinine Glucose POC Glucose 282 H 336 H 271 H Hemoglobin A1c Calcium Phosphorus Magnesium Iron TIBC Total Creatine Kinase CK-MB (CK-2) Troponin T Total Protein Albumin Crossmatch 07/22/18 07/22/18 07/22/18 17:00 17:00 17:05 WBC RBC Hgb 8.2 L Hct 25.0 L D RDW Lymph % (Auto) Lymph # Seg Neutrophils % Seg Neuts % (Manual) Lymphocytes % (Manual) Seg Neutrophils # Seg Neutrophils # Man Lymphocytes # (Manual) Haptoglobin 287 H APTT VBG pH Sodium Chloride Carbon Dioxide BUN Creatinine Glucose POC Glucose Hemoglobin A1c Calcium Phosphorus Magnesium Iron 11 L TIBC 182 L Total Creatine Kinase CK-MB (CK-2) Troponin T Total Protein Albumin Crossmatch 07/22/18 07/22/18 07/23/18 20:59 23:49 02:41 WBC RBC Hgb Hct RDW Lymph % (Auto) Lymph # Seg Neutrophils % Seg Neuts % (Manual) Lymphocytes % (Manual) Seg Neutrophils # Seg Neutrophils # Man Lymphocytes # (Manual) Haptoglobin APTT VBG pH Sodium Chloride Carbon Dioxide BUN Creatinine Glucose POC Glucose 380 H 372 H 279 H Hemoglobin A1c Calcium Phosphorus Magnesium Iron TIBC Total Creatine Kinase CK-MB (CK-2) Troponin T Total Protein Albumin Crossmatch 07/23/18 07/23/18 07/23/18 05:05 07:45 10:04 WBC RBC 2.86 L Hgb 8.3 L Hct 24.8 L RDW Lymph % (Auto) Lymph # Seg Neutrophils % Seg Neuts % (Manual) Lymphocytes % (Manual) Seg Neutrophils # Seg Neutrophils # Man Lymphocytes # (Manual) Haptoglobin APTT VBG pH Sodium 136 L Chloride Carbon Dioxide BUN 39 H Creatinine 2.2 H Glucose 260 H POC Glucose 239 H Hemoglobin A1c Calcium Phosphorus Magnesium 2.60 H Iron TIBC Total Creatine Kinase CK-MB (CK-2) Troponin T Total Protein Albumin Crossmatch 07/23/18 07/23/18 07/24/18 11:40 21:12 05:42 WBC RBC Hgb Hct RDW Lymph % (Auto) Lymph # Seg Neutrophils % Seg Neuts % (Manual) Lymphocytes % (Manual) Seg Neutrophils # Seg Neutrophils # Man Lymphocytes # (Manual) Haptoglobin APTT VBG pH Sodium Chloride 108.7 H Carbon Dioxide 21 L BUN 36 H Creatinine 2.2 H Glucose 65 L POC Glucose 191 H 285 H Hemoglobin A1c Calcium Phosphorus Magnesium Iron TIBC Total Creatine Kinase CK-MB (CK-2) Troponin T Total Protein Albumin Crossmatch 07/24/18 07/24/18 07/24/18 05:42 07:35 11:28 WBC RBC 2.68 L Hgb 7.8 L Hct 23.3 L RDW Lymph % (Auto) Lymph # Seg Neutrophils % Seg Neuts % (Manual) Lymphocytes % (Manual) Seg Neutrophils # Seg Neutrophils # Man Lymphocytes # (Manual) Haptoglobin APTT VBG pH Sodium Chloride Carbon Dioxide BUN Creatinine Glucose POC Glucose 62 L 148 H Hemoglobin A1c Calcium Phosphorus Magnesium Iron TIBC Total Creatine Kinase CK-MB (CK-2) Troponin T Total Protein Albumin Crossmatch 07/24/18 07/24/18 07/25/18 15:51 21:11 05:15 WBC RBC Hgb Hct RDW Lymph % (Auto) Lymph # Seg Neutrophils % Seg Neuts % (Manual) Lymphocytes % (Manual) Seg Neutrophils # Seg Neutrophils # Man Lymphocytes # (Manual) Haptoglobin APTT VBG pH Sodium Chloride 108.3 H Carbon Dioxide BUN 29 H Creatinine 1.8 H Glucose 114 H POC Glucose 153 H 226 H Hemoglobin A1c Calcium Phosphorus Magnesium Iron TIBC Total Creatine Kinase 338 H CK-MB (CK-2) Troponin T Total Protein Albumin Crossmatch 07/25/18 07/25/18 07/25/18 08:23 12:42 12:49 WBC RBC Hgb 8.7 L Hct 26.2 L RDW Lymph % (Auto) Lymph # Seg Neutrophils % Seg Neuts % (Manual) Lymphocytes % (Manual) Seg Neutrophils # Seg Neutrophils # Man Lymphocytes # (Manual) Haptoglobin APTT VBG pH Sodium Chloride Carbon Dioxide BUN Creatinine Glucose POC Glucose < 40 L 45 L Hemoglobin A1c Calcium Phosphorus Magnesium Iron TIBC Total Creatine Kinase CK-MB (CK-2) Troponin T Total Protein Albumin Crossmatch 07/25/18 13:08 WBC RBC Hgb Hct RDW Lymph % (Auto) Lymph # Seg Neutrophils % Seg Neuts % (Manual) Lymphocytes % (Manual) Seg Neutrophils # Seg Neutrophils # Man Lymphocytes # (Manual) Haptoglobin APTT VBG pH Sodium Chloride Carbon Dioxide BUN Creatinine Glucose 48 L POC Glucose Hemoglobin A1c Calcium Phosphorus Magnesium Iron TIBC Total Creatine Kinase CK-MB (CK-2) Troponin T Total Protein Albumin Crossmatch Chest x-ray: image reviewed (cardiomegaly with bilateral pulmonary effort) Allied health notes reviewed: nursing
[2018-07-25] MEDS ORDERED: LEVAQUIN 750MG/150ML 750 MG/150 ML BAG IV SCH ×2 (16:00→18:00)
[2018-07-25] MEDS: ROCEPHIN/NS 2 GM/100 ML 2 GM/100 ML BAG IV SCH (21:11)
[2018-07-25] MEDS: NACL 0.9% 1000 ML 1,000 ML IV SCH (21:14)
[2018-07-25] MEDS: LANTUS SUB-Q SCH (21:23)
[2018-07-25] MEDS: ZITHROMAX 500 MG in NACL 0.9% 250ML 250 ML IV SCH (21:25)
[2018-07-26 06:14] LABS: Calcium 8.6 mg/dL (8.4-10.2)
[2018-07-26] MEDS: DUONEB *Not for PRN Use IH SCH ×3 (07:20→16:15)
[2018-07-26] MEDS: HumuLIN R SUB-Q SCH (07:37)
[2018-07-26] MEDS: HumaLOG SUB-Q SCH (07:38)
--- NOTE | 2018-07-26 09:15 | Progress Note ---
Assessment and Plan Bilateral pneumonia (CAP) Acute encephalopathy Hypoglycemia HTN (hypertension) IDDM (insulin dependent diabetes mellitus) (Im bothered about non infectious pneumonia at play vs other etiology for infiltrates) - follow 2D ECHO and optimize cardiac function as necessary - follow sputum C&S - continue supplemental oxygen as needed to keep O2 sat's > 90% - GI & VTE prophylaxis - bronchodilators with pulmonary hygiene per RT - s/p EGD with Esophageal biopsies taken - optimize renal function per soap chipper - gentle hydration while watching for pulmonary edema - PT/OT as tolerated - states that he has had extended outpatient ENT w/up (apparently h/o throat cancer) - continue other care per attending / other consultants .... re-evaluate in am & prn Subjective Date of service: 07/26/18 Principal diagnosis: Jovi PNA (CAP); Acute encephalopathy; Hypoglycemia; HTN; IDDM Interval history: Patient is seen today for: Bilateral pneumonia (CAP); Acute encephalopathy; Hypoglycemia; HTN (hypertension); IDDM (insulin dependent diabetes mellitus) Seen and examined at bedside; 24hour events reviewed; nursing and respiratory care staff consulted; no adverse overnight events reported to me; resting in bed; family in room; awaiting 2D ECHO; swallow evaluation ongoing Objective Vital Signs - 12hr 07/25/18 07/25/18 07/26/18 21:16 23:08 03:41 Temperature 99.3 F 99.2 F Pulse Rate 94 H 94 H 91 H Respiratory 12 18 Rate Blood Pressure 138/72 116/69 122/72 O2 Sat by Pulse 96 86 Oximetry 07/26/18 07:30 Temperature 98.2 F Pulse Rate Respiratory 18 Rate Blood Pressure 142/88 O2 Sat by Pulse Oximetry Constitutional: no acute distress, alert, other (elderly looking AAM with mildly increased resp effort at rest) Eyes: non-icteric ENT: oropharynx moist Neck: supple, no JVD, other (no thyromegaly) Ascultation: Bilateral: rhonchi Percussion: Bilateral: not dull Cardiovascular: regular rate and rhythm, other (No R/M) Gastrointestinal: normoactive bowel sounds, soft, non-tender, non-distended Integumentary: normal Extremities: no cyanosis, no edema, pulses normal, no ischemia or petechiae Neurologic: normal mental status, non-focal exam, pupils equal and round, CN II-XII normal, motor strength normal and Psychiatric: mood appropriate, affect normal CBC and BMP: 07/25/18 08:23 07/26/18 04:29 ABG, PT/INR, D-dimer: PT/INR, D-dimer PT 13.6 Sec. (12.2-14.9) 07/20/18 16:03 INR 0.98 (0.87-1.13) 07/20/18 16:03 Abnormal lab findings: Abnormal Labs 07/20/18 07/20/18 07/20/18 15:55 16:03 16:03 WBC RBC 5.29 H Hgb 15.3 H Hct 46.1 H RDW Lymph % (Auto) 5.9 L Lymph # 0.4 L Seg Neutrophils % 89.9 H Seg Neuts % (Manual) Lymphocytes % (Manual) Seg Neutrophils # Seg Neutrophils # Man Lymphocytes # (Manual) Haptoglobin APTT 22.2 L VBG pH Sodium Chloride Carbon Dioxide BUN Creatinine Glucose POC Glucose < 40 L Hemoglobin A1c Calcium Phosphorus Magnesium Iron TIBC Total Creatine Kinase CK-MB (CK-2) Troponin T Total Protein Albumin Crossmatch 07/20/18 07/20/18 07/20/18 16:03 16:03 16:05 WBC RBC Hgb Hct RDW Lymph % (Auto) Lymph # Seg Neutrophils % Seg Neuts % (Manual) Lymphocytes % (Manual) Seg Neutrophils # Seg Neutrophils # Man Lymphocytes # (Manual) Haptoglobin APTT VBG pH 7.312 L Sodium Chloride Carbon Dioxide BUN 39 H Creatinine 2.5 H Glucose 31 L* POC Glucose Hemoglobin A1c 11.4 H Calcium Phosphorus Magnesium Iron TIBC Total Creatine Kinase 871 H CK-MB (CK-2) 6.8 H Troponin T 0.036 H Total Protein Albumin 3.4 L Crossmatch 07/20/18 07/20/18 07/20/18 16:05 16:20 18:17 WBC RBC Hgb Hct RDW Lymph % (Auto) Lymph # Seg Neutrophils % Seg Neuts % (Manual) Lymphocytes % (Manual) Seg Neutrophils # Seg Neutrophils # Man Lymphocytes # (Manual) Haptoglobin APTT VBG pH Sodium Chloride Carbon Dioxide BUN Creatinine Glucose POC Glucose 181 H 53 L Hemoglobin A1c Calcium Phosphorus Magnesium Iron TIBC Total Creatine Kinase CK-MB (CK-2) Troponin T Total Protein Albumin Crossmatch See Detail 04/07/20/18 07/21/18 20:17 21:34 00:52 WBC RBC Hgb Hct RDW Lymph % (Auto) Lymph # Seg Neutrophils % Seg Neuts % (Manual) Lymphocytes % (Manual) Seg Neutrophils # Seg Neutrophils # Man Lymphocytes # (Manual) Haptoglobin APTT VBG pH Sodium Chloride Carbon Dioxide BUN Creatinine Glucose POC Glucose 296 H 281 H Hemoglobin A1c Calcium Phosphorus Magnesium Iron TIBC Total Creatine Kinase CK-MB (CK-2) Troponin T 0.036 H D Total Protein Albumin Crossmatch 07/21/18 07/21/18 07/21/18 05:23 06:50 06:50 WBC 12.9 H RBC 2.99 L Hgb 8.4 L D Hct 26.0 L D RDW Lymph % (Auto) Lymph # Seg Neutrophils % Seg Neuts % (Manual) Lymphocytes % (Manual) Seg Neutrophils # 11.5 H Seg Neutrophils # Man 8.0 H Lymphocytes # (Manual) Haptoglobin APTT VBG pH Sodium Chloride Carbon Dioxide 21 L BUN 38 H Creatinine 2.2 H Glucose 250 H POC Glucose 244 H Hemoglobin A1c Calcium 8.3 L Phosphorus Magnesium Iron TIBC Total Creatine Kinase CK-MB (CK-2) Troponin T Total Protein 6.1 L Albumin 2.9 L Crossmatch 07/21/18 07/21/18 07/21/18 10:49 12:16 16:28 WBC 13.9 H RBC 2.99 L Hgb 8.5 L Hct 25.9 L RDW Lymph % (Auto) Lymph # Seg Neutrophils % Seg Neuts % (Manual) Lymphocytes % (Manual) Seg Neutrophils # Seg Neutrophils # Man Lymphocytes # (Manual) Haptoglobin APTT VBG pH Sodium Chloride Carbon Dioxide BUN Creatinine Glucose POC Glucose 406 H 316 H Hemoglobin A1c Calcium Phosphorus Magnesium Iron TIBC Total Creatine Kinase CK-MB (CK-2) Troponin T Total Protein Albumin Crossmatch 07/21/18 07/22/18 07/22/18 21:08 05:47 05:47 WBC RBC 2.10 L Hgb 6.1 L Hct 19.0 L* D RDW 15.3 H Lymph % (Auto) Lymph # Seg Neutrophils % Seg Neuts % (Manual) 84.0 H Lymphocytes % (Manual) 0 L Seg Neutrophils # Seg Neutrophils # Man 8.0 H Lymphocytes # (Manual) 0.0 L Haptoglobin APTT VBG pH Sodium Chloride 94.2 L Carbon Dioxide BUN 29 H Creatinine 1.6 H Glucose 232 H POC Glucose 131 H Hemoglobin A1c Calcium Phosphorus 1.70 L Magnesium 1.30 L Iron TIBC Total Creatine Kinase CK-MB (CK-2) Troponin T Total Protein Albumin Crossmatch 07/22/18 07/22/18 07/22/18 08:09 11:48 16:17 WBC RBC Hgb Hct RDW Lymph % (Auto) Lymph # Seg Neutrophils % Seg Neuts % (Manual) Lymphocytes % (Manual) Seg Neutrophils # Seg Neutrophils # Man Lymphocytes # (Manual) Haptoglobin APTT VBG pH Sodium Chloride Carbon Dioxide BUN Creatinine Glucose POC Glucose 282 H 336 H 271 H Hemoglobin A1c Calcium Phosphorus Magnesium Iron TIBC Total Creatine Kinase CK-MB (CK-2) Troponin T Total Protein Albumin Crossmatch 07/22/18 07/22/18 07/22/18 17:00 17:00 17:05 WBC RBC Hgb 8.2 L Hct 25.0 L D RDW Lymph % (Auto) Lymph # Seg Neutrophils % Seg Neuts % (Manual) Lymphocytes % (Manual) Seg Neutrophils # Seg Neutrophils # Man Lymphocytes # (Manual) Haptoglobin 287 H APTT VBG pH Sodium Chloride Carbon Dioxide BUN Creatinine Glucose POC Glucose Hemoglobin A1c Calcium Phosphorus Magnesium Iron 11 L TIBC 182 L Total Creatine Kinase CK-MB (CK-2) Troponin T Total Protein Albumin Crossmatch 07/22/18 07/22/18 07/23/18 20:59 23:49 02:41 WBC RBC Hgb Hct RDW Lymph % (Auto) Lymph # Seg Neutrophils % Seg Neuts % (Manual) Lymphocytes % (Manual) Seg Neutrophils # Seg Neutrophils # Man Lymphocytes # (Manual) Haptoglobin APTT VBG pH Sodium Chloride Carbon Dioxide BUN Creatinine Glucose POC Glucose 380 H 372 H 279 H Hemoglobin A1c Calcium Phosphorus Magnesium Iron TIBC Total Creatine Kinase CK-MB (CK-2) Troponin T Total Protein Albumin Crossmatch 07/23/18 07/23/18 07/23/18 05:05 07:45 10:04 WBC RBC 2.86 L Hgb 8.3 L Hct 24.8 L RDW Lymph % (Auto) Lymph # Seg Neutrophils % Seg Neuts % (Manual) Lymphocytes % (Manual) Seg Neutrophils # Seg Neutrophils # Man Lymphocytes # (Manual) Haptoglobin APTT VBG pH Sodium 136 L Chloride Carbon Dioxide BUN 39 H Creatinine 2.2 H Glucose 260 H POC Glucose 239 H Hemoglobin A1c Calcium Phosphorus Magnesium 2.60 H Iron TIBC Total Creatine Kinase CK-MB (CK-2) Troponin T Total Protein Albumin Crossmatch 07/23/18 07/23/18 07/24/18 11:40 21:12 05:42 WBC RBC Hgb Hct RDW Lymph % (Auto) Lymph # Seg Neutrophils % Seg Neuts % (Manual) Lymphocytes % (Manual) Seg Neutrophils # Seg Neutrophils # Man Lymphocytes # (Manual) Haptoglobin APTT VBG pH Sodium Chloride 108.7 H Carbon Dioxide 21 L BUN 36 H Creatinine 2.2 H Glucose 65 L POC Glucose 191 H 285 H Hemoglobin A1c Calcium Phosphorus Magnesium Iron TIBC Total Creatine Kinase CK-MB (CK-2) Troponin T Total Protein Albumin Crossmatch 07/24/18 07/24/18 07/24/18 05:42 07:35 11:28 WBC RBC 2.68 L Hgb 7.8 L Hct 23.3 L RDW Lymph % (Auto) Lymph # Seg Neutrophils % Seg Neuts % (Manual) Lymphocytes % (Manual) Seg Neutrophils # Seg Neutrophils # Man Lymphocytes # (Manual) Haptoglobin APTT VBG pH Sodium Chloride Carbon Dioxide BUN Creatinine Glucose POC Glucose 62 L 148 H Hemoglobin A1c Calcium Phosphorus Magnesium Iron TIBC Total Creatine Kinase CK-MB (CK-2) Troponin T Total Protein Albumin Crossmatch 07/24/18 07/24/18 07/25/18 15:51 21:11 05:15 WBC RBC Hgb Hct RDW Lymph % (Auto) Lymph # Seg Neutrophils % Seg Neuts % (Manual) Lymphocytes % (Manual) Seg Neutrophils # Seg Neutrophils # Man Lymphocytes # (Manual) Haptoglobin APTT VBG pH Sodium Chloride 108.3 H Carbon Dioxide BUN 29 H Creatinine 1.8 H Glucose 114 H POC Glucose 153 H 226 H Hemoglobin A1c Calcium Phosphorus Magnesium Iron TIBC Total Creatine Kinase 338 H CK-MB (CK-2) Troponin T Total Protein Albumin Crossmatch 07/25/18 07/25/18 07/25/18 08:23 12:42 12:49 WBC RBC Hgb 8.7 L Hct 26.2 L RDW Lymph % (Auto) Lymph # Seg Neutrophils % Seg Neuts % (Manual) Lymphocytes % (Manual) Seg Neutrophils # Seg Neutrophils # Man Lymphocytes # (Manual) Haptoglobin APTT VBG pH Sodium Chloride Carbon Dioxide BUN Creatinine Glucose POC Glucose < 40 L 45 L Hemoglobin A1c Calcium Phosphorus Magnesium Iron TIBC Total Creatine Kinase CK-MB (CK-2) Troponin T Total Protein Albumin Crossmatch 07/25/18 07/25/18 07/25/18 13:08 16:43 21:28 WBC RBC Hgb Hct RDW Lymph % (Auto) Lymph # Seg Neutrophils % Seg Neuts % (Manual) Lymphocytes % (Manual) Seg Neutrophils # Seg Neutrophils # Man Lymphocytes # (Manual) Haptoglobin APTT VBG pH Sodium Chloride Carbon Dioxide BUN Creatinine Glucose 48 L POC Glucose 114 H 153 H Hemoglobin A1c Calcium Phosphorus Magnesium Iron TIBC Total Creatine Kinase CK-MB (CK-2) Troponin T Total Protein Albumin Crossmatch 07/26/18 04:29 WBC RBC Hgb Hct RDW Lymph % (Auto) Lymph # Seg Neutrophils % Seg Neuts % (Manual) Lymphocytes % (Manual) Seg Neutrophils # Seg Neutrophils # Man Lymphocytes # (Manual) Haptoglobin APTT VBG pH Sodium Chloride 111.5 H Carbon Dioxide 20 L BUN 26 H Creatinine 1.9 H Glucose POC Glucose Hemoglobin A1c Calcium Phosphorus Magnesium Iron TIBC Total Creatine Kinase CK-MB (CK-2) Troponin T Total Protein Albumin Crossmatch Allied health notes reviewed: nursing
--- NOTE | 2018-07-26 09:37 | Progress Note ---
Assessment and Plan 1. Acute kidney injury: Vasomotor AISHA superimposed on CKD stage 3 in the setting of volume depletion. Urine studies pending. Renal US negative for hydro. Creatinine level is stable since yesterday, likely his baseline. Monitor renal function. Renal prognosis is guarded. Avoid nephrotoxic agents. Meds dosage based on GFR. MARY JANE, ANCA and Complements are pending. 2. FEN: Monitor lytes and volume status. 3. Bilateral PNA. 4. Hypoxic respiratory failure: 2/2 PNA. Followed by Pulmonary. 5. Acute encephalopathy: Improved. 6. Anemia: S/p PRBC. S/p EGD. 7. DM type 2. 8. HTN. Also d/w his at the bedside. F/u with me in 1-2 weeks. Subjective Date of service: 07/26/18 Principal diagnosis: Jovi PNA (CAP); Acute encephalopathy; Hypoglycemia; HTN; IDDM Interval history: Patient was seen and examined at the bedside. Objective - Vital Signs Vital signs: Vital Signs - 12hr 07/25/18 07/26/18 07/26/18 23:08 03:41 07:30 Temperature 99.3 F 99.2 F 98.2 F Pulse Rate 94 H 91 H Respiratory 12 18 18 Rate Blood Pressure 116/69 122/72 142/88 O2 Sat by Pulse 96 86 Oximetry - General Appearance General appearance: well-developed, well-nourished, appears stated age, other (not in distress) EENT: ATNC, PERRL, mucous membranes moist, hearing intact, vision intact Neck: supple Respiratory: Present: Rales Cardiology: regular, S1S2, no murmurs Gastrointestinal: normoactive bowel sounds, no tenderness, no distended Integumentary: no rash, warm and dry Neurologic: no asterixis, alert and oriented x3, other (dysphonia) Musculoskeletal: other (no edema) - Lab 07/25/18 08:23 07/26/18 04:29 Most recent lab results Calcium 8.6 mg/dL (8.4-10.2) 07/26/18 04:29 Phosphorus 2.90 mg/dL (2.5-4.5) D 07/23/18 05:05 Magnesium 2.60 mg/dL (1.7-2.3) H 07/23/18 05:05 Medications & Allergies - Medications Allergies/Adverse Reactions: Allergies No Known Allergies Allergy (Unverified 01/01/17 10:41) Home Medications: Home Medications Medication Instructions Recorded Confirmed Last Taken Type Insulin Aspart [NovoLOG 100 See Protocol SQ ACHS 07/20/18 07/20/18 07/19/18 History UNITS/ML VIAL] Insulin Glargine,Hum.rec.anlog 30 units SQ HS 07/20/18 07/20/18 07/19/18 History [Lantus] ALBUTEROL NEB's [Proventil 0.083% 2.5 mg IH Q4HRT PRN #30 nebu 07/25/18 Unknown Rx NEBS] Carvedilol [Coreg] 12.5 mg PO BID #60 tablet 07/25/18 Unknown Rx Ferrous Sulfate [Feosol 325 MG tab] 325 mg PO BID #60 tablet 07/25/18 Unknown Rx HYDROcodone/HOMATROP 5-1.5 5 ml PO Q4HR PRN 5 Days oz 07/25/18 Unknown Rx [HYDROcodone-Homatropin 5-1.5 mg per 5 ML] Ondansetron [Zofran ODT TAB] 8 mg PO Q8HR PRN #30 tab.rapdis 07/25/18 Unknown Rx Pantoprazole [Protonix TAB] 40 mg PO QDAY #30 tablet 07/25/18 Unknown Rx amLODIPine [Norvasc] 10 mg PO QDAY #30 tablet 07/25/18 Unknown Rx levoFLOXacin [Levaquin] 750 mg PO QDAY #5 tablet 07/25/18 Unknown Rx Active Medications: Generic Name Dose Route Start Last Admin Trade Name Kirby PRN Reason Stop Dose Admin Acetaminophen 650 mg 07/20/18 18:31 Tylenol PO Q4H PRN Pain MILD(1-3)/Fever >100.5/PEDROZA Albuterol 2.5 mg 07/20/18 18:34 Proventil IH Q4HRT PRN Shortness Of Breath Albuterol/Ipratropium 1 ampul 07/20/18 20:00 07/26/18 07:20 Duoneb *Not For Prn Use* IH 1 ampul QIDRT NAEEM Administration Amlodipine Besylate 10 mg 07/21/18 18:00 07/25/18 15:00 Norvasc PO 10 mg QDAY NAEEM Administration Carvedilol 12.5 mg 07/21/18 11:00 07/25/18 21:16 Coreg PO 12.5 mg BID NAEEM Administration Ferrous Sulfate 325 mg 07/23/18 22:00 07/25/18 21:16 Feosol PO 325 mg BID NAEEM Administration Hydromorphone HCl 0.5 mg 07/20/18 18:31 Dilaudid IV Q3H PRN Pain , Severe (7-10) Azithromycin 500 mg/ Sodium 250 mls @ 250 mls/hr 07/21/18 18:00 07/25/18 21:25 Chloride IV 250 mls/hr Q24H NAEEM Administration Sodium Chloride 1,000 mls @ 50 mls/hr 07/25/18 11:00 07/25/18 21:14 Nacl 0.9% 1000 Ml IV 50 mls/hr DIRECT NAEEM Administration Levofloxacin/Dextrose 750 mg in 150 mls @ 100 mls/hr 07/25/18 18:00 07/25/18 19:00 Levaquin 750mg/150ml IV 100 mls/hr Q48H NAEEM Administration Protocol Insulin Glargine 15 units 07/22/18 12:33 07/25/18 21:23 Lantus SUB-Q 15 units QHS [facility] Administration Insulin Human Lispro 5 unit 07/22/18 14:00 07/26/18 07:38 Humalog SUB-Q Not Given TID [facility] Insulin Human Regular 0 units 07/21/18 12:32 07/26/18 07:37 Humulin R SUB-Q Not Given ACHS [facility] Protocol Ondansetron HCl 4 mg 07/20/18 18:31 Zofran IV Q8H PRN Nausea And Vomiting Ondansetron HCl 8 mg 07/20/18 18:37 Zofran Odt PO Q8HR PRN Nausea Oxycodone/Acetaminophen 1 tab 07/20/18 18:31 Percocet 5/325 PO Q6H PRN Pain, Moderate (4-6) Pantoprazole Sodium 40 mg 07/22/18 15:00 07/25/18 21:16 Protonix IV 40 mg BID NAEEM Administration Polyethylene Glycol 17 gm 07/22/18 14:36 07/22/18 15:07 Miralax 3350 PO 17 gm QDAY PRN Administration Constipation Scopolamine 1 each 07/24/18 13:00 07/24/18 14:22 Transderm-Scop TD 1 each Q3D NAEEM Administration Senna/Docusate Sodium 2 tab 07/24/18 22:00 07/25/18 21:23 Senokot S PO Not Given Q12HR NAEEM Sodium Chloride 10 ml 07/20/18 22:00 07/25/18 21:16 Sodium Chloride Flush Syringe 10 Ml IV 10 ml BID NAEEM Administration Sodium Chloride 10 ml 07/20/18 18:31 07/23/18 21:08 Sodium Chloride Flush Syringe 10 Ml IV 10 ml PRN PRN Administration LINE FLUSH
--- NOTE | 2018-07-26 09:51 | Gastroenterology Progress Note ---
Assessment and Plan 1.acute on chronic anemia -stool occult negative -iron 11, TIBC 182, ferritin 222.3 -haptoglobin pending -H/H 8.7/26.2-trending up -continue to monitor H/H and transfuse as needed -no active signs of bleeding (pt reports scant amount of blood tinged sputum/emesis over the past week) -currently HD stable -last colonoscopy 12/2016 showed transverse polyp, diverticulosis in sigmoid, and internal hemorrhoids -etiology-likely multifactorial -s/p EGD yesterday that showed scattered yellowish plaques in mid esophagus but no active bleeding -bx results pending -okay to resume diet -continue iron supplement and PPI -consider hematology consult based on progress -continue supportive care -patient okay to be d/c per GI standpoint with f/u in clinic ~2 weeks -will sign off, please call if needed 2.Hx of neck cancer -s/p surgery/XRT/chemo with mild chronic dysphagia -currently tolerating diet 3.bilateral pneumonia 4.CKD stage 3 5.Mildly elevated troponin -Stress test cancelled by cardiology due to anemia 6.DM 7.Hypertension Subjective Date of service: 07/26/18 Principal diagnosis: anemia Interval history: No acute distress or active signs of bleeding. Denies abd pain or N/V. Objective - Constitutional Vitals: Temp Pulse Resp BP Pulse Ox 98.2 F 91 H 18 142/88 86 07/26/18 07:30 07/26/18 03:41 07/26/18 07:30 07/26/18 07:30 07/26/18 03:41 General appearance: no acute distress - Respiratory Respiratory: bilateral: diminished - Cardiovascular Rhythm: regular - Gastrointestinal General gastrointestinal: Present: soft, non-distended, normal bowel sounds - Neurologic Neurological: alert and oriented x3 - Labs CBC & Chem 7: 07/25/18 08:23 07/26/18 04:29 Labs: Laboratory Results - last 24 hr 07/22/18 07/25/18 07/25/18 17:00 12:42 12:49 Haptoglobin 287 H Sodium Potassium Chloride Carbon Dioxide Anion Gap BUN Creatinine Estimated GFR BUN/Creatinine Ratio Glucose POC Glucose < 40 L 45 L Calcium 07/25/18 07/25/18 07/25/18 13:08 15:11 16:43 Haptoglobin Sodium Potassium Chloride Carbon Dioxide Anion Gap BUN Creatinine Estimated GFR BUN/Creatinine Ratio Glucose 48 L POC Glucose 81 114 H Calcium 07/25/18 07/26/18 07/26/18 21:28 04:29 07:26 Haptoglobin Sodium 143 Potassium 4.9 Chloride 111.5 H Carbon Dioxide 20 L Anion Gap 16 BUN 26 H Creatinine 1.9 H Estimated GFR 44 BUN/Creatinine Ratio 14 Glucose 96 POC Glucose 153 H 70 Calcium 8.6 07/26/18 08:31 Haptoglobin Sodium Potassium Chloride Carbon Dioxide Anion Gap BUN Creatinine Estimated GFR BUN/Creatinine Ratio Glucose POC Glucose 92 Calcium
--- NOTE | 2018-07-26 10:13 | Progress Note ---
Assessment and Plan Assessment and plan: Bilateral pneumonia -Continue IV antibiotics, consider changing to oral in am -Blood cultures negative so far Acute on chronic anemia -We'll monitor H&H and transfuse as needed -Patient's baseline Hemoglobin is 11. now down to 7.8 -stool for occult blood neg -On oral iron tablet due to low iron level -Discussed with GI, will proceed with Endoscopy in AM - Haptoglobin pending. No active bleeding - could possible have chronic esophagitis with oozing from prior XRT as below Mildly elevated troponin -Stress test cancelled by cardiology due to anemia -pt denies chest pain. Acute on CKD stage 3 -Creatinine level stable -Renal US negative for hydronephrosis -Nephrology following DM2 with current hyperglycemia -BG improving on current insulin regimen, adjust as needed Hypertension -Controlled on amlodipine Acute metabolic encephalopathy -Due to hypoglycemia versus infection -Resolved Metabolic acidosis -Likely due to renal impairment, resolved Hypomagnesemia/Hypophosphatemia -Resolved status post repletion History of throat cancer -Status post surgery/radiation/chemo -For outpatient follow-up Physical deconditioning -PT consulted. Disposition: For discharge when medically stable probably in 1-2 days discharge held, due to hypoxia History Interval history: Patient seen and examined today, he reports increased secretions and productive cough, no fever. spouse is at bedside Hospitalist Physical - Physical exam Narrative exam: General appearance: Present: no acute distress, well-nourished, - EENT Eyes: Present: PERRL, EOM intact ENT: hearing intact, clear oral mucosa - Neck Neck: Present: supple, congested sounds - Respiratory Respiratory effort: normal Respiratory: bilateral: CTA - Cardiovascular Rhythm: regular Heart Sounds: Present: S1 & S2 - Extremities Extremities: No edema - Abdominal General gastrointestinal: soft, non-tender, non-distended, normal bowel sounds - Integumentary Integumentary: Present: clear, warm, dry - Neurologic Neurologic: CNII-XII intact - Constitutional Vitals: Temp Pulse Resp BP Pulse Ox 98.2 F 91 H 18 142/88 86 07/26/18 07:30 07/26/18 03:41 07/26/18 07:30 07/26/18 07:30 07/26/18 03:41 General appearance: Present: no acute distress, well-nourished, other (appears weak) Results - Labs CBC & Chem 7: 07/25/18 08:23 07/26/18 04:29 Labs: Laboratory Last Values WBC 6.3 K/mm3 (4.5-11.0) 07/24/18 05:42 RBC 2.68 M/mm3 (3.65-5.03) L 07/24/18 05:42 Hgb 8.7 gm/dl (11.8-15.2) L 07/25/18 08:23 Hct 26.2 % (35.5-45.6) L 07/25/18 08:23 MCV 87 fl (84-94) 07/24/18 05:42 MCH 29 pg (28-32) 07/24/18 05:42 MCHC 33 % (32-34) 07/24/18 05:42 RDW 14.7 % (13.2-15.2) 07/24/18 05:42 Plt Count 307 K/mm3 (140-440) 07/24/18 05:42 Lymph % (Auto) 5.9 % (13.4-35.0) L 07/20/18 16:03 [place] % (Auto) 3.8 % (0.0-7.3) 07/20/18 16:03 Eos % (Auto) 0.1 % (0.0-4.3) 07/20/18 16:03 Baso % (Auto) 0.3 % (0.0-1.8) 07/20/18 16:03 Lymph # 0.4 K/mm3 (1.2-5.4) L 07/20/18 16:03 [place] # 0.2 K/mm3 (0.0-0.8) 07/20/18 16:03 Eos # 0.0 K/mm3 (0.0-0.4) 07/20/18 16:03 Baso # 0.0 K/mm3 (0.0-0.1) 07/20/18 16:03 Add Manual Diff Complete 07/22/18 05:47 Total Counted 100 07/22/18 05:47 Seg Neutrophils % [place] 07/21/18 06:50 Seg Neuts % (Manual) 84.0 % (40.0-70.0) H 07/22/18 05:47 Band Neutrophils % 16.0 % 07/22/18 05:47 Lymphocytes % (Manual) 0 % (13.4-35.0) L 07/22/18 05:47 Reactive Lymphs % (Man) 0 % 07/22/18 05:47 Monocytes % (Manual) 0 % (0.0-7.3) 07/22/18 05:47 Eosinophils % (Manual) 0 % (0.0-4.3) 07/22/18 05:47 Basophils % (Manual) 0 % (0.0-1.8) 07/22/18 05:47 Metamyelocytes % 0 % 07/22/18 05:47 Myelocytes % 0 % 07/22/18 05:47 Promyelocytes % 0 % 07/22/18 05:47 Blast Cells % 0 % 07/22/18 05:47 Nucleated RBC % Not Reportable 07/22/18 05:47 Seg Neutrophils # 11.5 K/mm3 (1.8-7.7) H 07/21/18 06:50 Seg Neutrophils # Man 8.0 K/mm3 (1.8-7.7) H 07/22/18 05:47 Band Neutrophils # 1.5 K/mm3 07/22/18 05:47 Lymphocytes # (Manual) 0.0 K/mm3 (1.2-5.4) L 07/22/18 05:47 Abs React Lymphs (Man) 0.0 K/mm3 07/22/18 05:47 Monocytes # (Manual) 0.0 K/mm3 (0.0-0.8) 07/22/18 05:47 Eosinophils # (Manual) 0.0 K/mm3 (0.0-0.4) 07/22/18 05:47 Basophils # (Manual) 0.0 K/mm3 (0.0-0.1) 07/22/18 05:47 Metamyelocytes # 0.0 K/mm3 07/22/18 05:47 Myelocytes # 0.0 K/mm3 07/22/18 05:47 Promyelocytes # 0.0 K/mm3 07/22/18 05:47 Blast Cells # 0.0 K/mm3 07/22/18 05:47 WBC Morphology Not Reportable 07/22/18 05:47 Hypersegmented Neuts Not Reportable 07/22/18 05:47 Hyposegmented Neuts Not Reportable 07/22/18 05:47 Hypogranular Neuts Not Reportable 07/22/18 05:47 Smudge Cells Not Reportable 07/22/18 05:47 Toxic Granulation Not Reportable 07/22/18 05:47 Toxic Vacuolation Not Reportable 07/22/18 05:47 Dohle Bodies Not Reportable 07/22/18 05:47 Pelger-Huet Anomaly Not Reportable 07/22/18 05:47 Juan Alberto Rods Not Reportable 07/22/18 05:47 Platelet Estimate Consistent w auto 07/22/18 05:47 Clumped Platelets Not Reportable 07/22/18 05:47 Plt Clumps, EDTA Not Reportable 07/22/18 05:47 Large Platelets Not Reportable 07/22/18 05:47 Giant Platelets Not Reportable 07/22/18 05:47 Platelet Satelliting Not Reportable 07/22/18 05:47 Plt Morphology Comment Not Reportable 07/22/18 05:47 RBC Morphology Not Reportable 07/22/18 05:47 Dimorphic RBCs Not Reportable 07/22/18 05:47 Polychromasia Not Reportable 07/22/18 05:47 Hypochromasia Not Reportable 07/22/18 05:47 Poikilocytosis Not Reportable 07/22/18 05:47 Anisocytosis 1+ 07/22/18 05:47 Microcytosis Not Reportable 07/22/18 05:47 Macrocytosis Not Reportable 07/22/18 05:47 Spherocytes Not Reportable 07/22/18 05:47 Pappenheimer Bodies Not Reportable 07/22/18 05:47 Sickle Cells Not Reportable 07/22/18 05:47 Target Cells Not Reportable 07/22/18 05:47 Tear Drop Cells Not Reportable 07/22/18 05:47 Ovalocytes Not Reportable 07/22/18 05:47 Helmet Cells Not Reportable 07/22/18 05:47 Garcia-Beasley Bodies Not Reportable 07/22/18 05:47 [place] Rings Not Reportable 07/22/18 05:47 [place] Cells Few 07/22/18 05:47 Bite Cells Not Reportable 07/22/18 05:47 Crenated Cell Not Reportable 07/22/18 05:47 Elliptocytes Not Reportable 07/22/18 05:47 Acanthocytes (Spur) Not Reportable 07/22/18 05:47 Rouleaux Not Reportable 07/22/18 05:47 Hemoglobin C Crystals Not Reportable 07/22/18 05:47 Schistocytes Rare 07/22/18 05:47 Malaria parasites Not Reportable 07/22/18 05:47 Luis Miguel Bodies Not Reportable 07/22/18 05:47 Haptoglobin 287 mg/dL (43-212) H 07/22/18 17:00 Hem Pathologist Commnt No 07/22/18 05:47 PT 13.6 Sec. (12.2-14.9) 07/20/18 16:03 INR 0.98 (0.87-1.13) 07/20/18 16:03 APTT 22.2 Sec. (24.2-36.6) L 07/20/18 16:03 VBG pH 7.312 (7.320-7.420) L 07/20/18 16:05 Sodium 143 mmol/L (137-145) 07/26/18 04:29 Potassium 4.9 mmol/L (3.6-5.0) 07/26/18 04:29 Chloride 111.5 mmol/L (98-107) H 07/26/18 04:29 Carbon Dioxide 20 mmol/L (22-30) L 07/26/18 04:29 Anion Gap 16 mmol/L 07/26/18 04:29 BUN 26 mg/dL (9-20) H 07/26/18 04:29 Creatinine 1.9 mg/dL (0.8-1.5) H 07/26/18 04:29 Estimated GFR 44 ml/min 07/26/18 04:29 BUN/Creatinine Ratio 14 % 07/26/18 04:29 Glucose 96 mg/dL (75-100) 07/26/18 04:29 POC Glucose 92 (70-105) 07/26/18 08:31 Hemoglobin A1c 11.4 % (4-6) H 07/20/18 16:03 Calcium 8.6 mg/dL (8.4-10.2) 07/26/18 04:29 Phosphorus 2.90 mg/dL (2.5-4.5) D 07/23/18 05:05 Magnesium 2.60 mg/dL (1.7-2.3) H 07/23/18 05:05 Iron 11 ug/dL (49-181) L 07/22/18 17:05 TIBC 182 mcg/dL (250-450) L 07/22/18 17:05 Ferritin 222.3 ng/mL (13.0-400.0) 07/22/18 17:05 Total Bilirubin 0.20 mg/dL (0.1-1.2) 07/21/18 06:50 AST 21 units/L (5-40) 07/21/18 06:50 ALT 11 units/L (7-56) 07/21/18 06:50 Alkaline Phosphatase 40 units/L (35-129) 07/21/18 06:50 Ammonia 32.0 umol/L (25-60) 07/20/18 16:05 Total Creatine Kinase 338 units/L (55-170) H 07/25/18 05:15 CK-MB (CK-2) 6.8 ng/mL (0.0-4.0) H 07/20/18 16:03 CK-MB (CK-2) Rel Index 0.7 (0-4) 07/20/18 16:03 Troponin T 0.036 ng/mL (0.00-0.029) H D 07/21/18 00:52 NT-Pro-B Natriuret Pep 207.6 pg/mL (0-900) 07/20/18 16:03 Total Protein 6.1 g/dL (6.3-8.2) L 07/21/18 06:50 Albumin 2.9 g/dL (3.9-5) L 07/21/18 06:50 Albumin/Globulin Ratio 0.9 % 07/21/18 06:50 Triglycerides 70 mg/dL (2-149) 07/20/18 16:03 Cholesterol 145 mg/dL (50-199) 07/20/18 16:03 LDL Cholesterol Direct 93 mg/dL (50-130) 07/20/18 16:03 HDL Cholesterol 52 mg/dL (40-59) 07/20/18 16:03 Cholesterol/HDL Ratio 2.78 % 07/20/18 16:03 PTH Intact 57.12 pg/mL (15-65) 07/22/18 05:47 Urine Color Yellow (Yellow) 07/21/18 12:48 Urine Turbidity Clear (Clear) 07/21/18 12:48 Urine pH 5.0 (5.0-7.0) 07/21/18 12:48 Ur Specific Bond 1.015 (1.003-1.030) 07/21/18 12:48 Urine Protein 100 mg/dl mg/dL (Negative) 07/21/18 12:48 Urine Glucose (UA) >=500 mg/dL (Negative) 07/21/18 12:48 Urine Ketones Neg mg/dL (Negative) 07/21/18 12:48 Urine Blood Sm (Negative) 07/21/18 12:48 Urine Nitrite Neg (Negative) 07/21/18 12:48 Urine Bilirubin Neg (Negative) 07/21/18 12:48 Urine Urobilinogen < 2.0 mg/dL (<2.0) 07/21/18 12:48 Ur Leukocyte Esterase Neg (Negative) 07/21/18 12:48 Urine WBC (Auto) 1.0 /HPF (0.0-6.0) 07/21/18 12:48 Urine RBC (Auto) 2.0 /HPF (0.0-6.0) 07/21/18 12:48 Plasma/Serum Alcohol < 0.01 % (0-0.07) 07/20/18 16:05 Blood Type O POSITIVE 07/20/18 16:05 Antibody Screen Negative 07/20/18 16:05 Crossmatch See Detail 07/20/18 16:05 Active Medications - Current Medications Current Medications: Generic Name Dose Route Start Last Admin Trade Name Freq PRN Reason Stop Dose Admin Acetaminophen 650 mg 07/20/18 18:31 Tylenol PO Q4H PRN Pain MILD(1-3)/Fever >100.5/PEDROZA Albuterol 2.5 mg 07/20/18 18:34 Proventil IH Q4HRT PRN Shortness Of Breath Albuterol/Ipratropium 1 ampul 07/20/18 20:00 07/26/18 07:20 Duoneb *Not For Prn Use* IH 1 ampul QIDRT NAEEM Administration Amlodipine Besylate 10 mg 07/21/18 18:00 07/25/18 15:00 Norvasc PO 10 mg QDAY NAEME Administration Carvedilol 12.5 mg 07/21/18 11:00 07/25/18 21:16 Coreg PO 12.5 mg BID NAEEM Administration Ferrous Sulfate 325 mg 07/23/18 22:00 07/25/18 21:16 Feosol PO 325 mg BID NAEEM Administration Hydromorphone HCl 0.5 mg 07/20/18 18:31 Dilaudid IV Q3H PRN Pain , Severe (7-10) Azithromycin 500 mg/ Sodium 250 mls @ 250 mls/hr 07/21/18 18:00 07/25/18 21:25 Chloride IV 250 mls/hr Q24H NAEEM Administration Sodium Chloride 1,000 mls @ 50 mls/hr 07/25/18 11:00 07/25/18 21:14 Nacl 0.9% 1000 Ml IV 50 mls/hr DIRECT NAEEM Administration Levofloxacin/Dextrose 750 mg in 150 mls @ 100 mls/hr 07/25/18 18:00 07/25/18 19:00 Levaquin 750mg/150ml IV 100 mls/hr Q48H [facility] Administration Protocol Insulin Glargine 15 units 07/22/18 12:33 07/25/18 21:23 Lantus SUB-Q 15 units QHS NAEEM Administration Insulin Human Lispro 5 unit 07/22/18 14:00 07/26/18 07:38 Humalog SUB-Q Not Given TID NAEEM Insulin Human Regular 0 units 07/21/18 12:32 07/26/18 07:37 Humulin R SUB-Q Not Given ACHS [facility] Protocol Ondansetron HCl 4 mg 07/20/18 18:31 Zofran IV Q8H PRN Nausea And Vomiting Ondansetron HCl 8 mg 07/20/18 18:37 Zofran Odt PO Q8HR PRN Nausea Oxycodone/Acetaminophen 1 tab 07/20/18 18:31 Percocet 5/325 PO Q6H PRN Pain, Moderate (4-6) Pantoprazole Sodium 40 mg 07/22/18 15:00 07/25/18 21:16 Protonix IV 40 mg BID NAEEM Administration Polyethylene Glycol 17 gm 07/22/18 14:36 07/22/18 15:07 Miralax 3350 PO 17 gm QDAY PRN Administration Constipation Scopolamine 1 each 07/24/18 13:00 07/24/18 14:22 Transderm-Scop TD 1 each Q3D NAEEM Administration Senna/Docusate Sodium 2 tab 07/24/18 22:00 07/25/18 21:23 Senokot S PO Not Given Q12HR NAEEM Sodium Chloride 10 ml 07/20/18 22:00 07/25/18 21:16 Sodium Chloride Flush Syringe 10 Ml IV 10 ml BID NAEEM Administration Sodium Chloride 10 ml 07/20/18 18:31 07/23/18 21:08 Sodium Chloride Flush Syringe 10 Ml IV 10 ml PRN PRN Administration LINE FLUSH
[2018-07-26] MEDS: NORVASC PO SCH (10:28)
[2018-07-26] MEDS: FEOSOL PO SCH (10:28)
[2018-07-26] MEDS: SENOKOT S PO SCH (10:28)
[2018-07-26] MEDS: SODIUM CHLORIDE FLUSH SYRINGE 10 ML IV SCH (10:29)
[2018-07-26] MEDS: COREG PO SCH (10:29)
[2018-07-26] MEDS: NACL 0.9% 1000 ML 1,000 ML IV SCH (11:00)
[2018-07-26 12:59] VITALS: BP 156/85
[2018-07-30 20:04] LABS: Myeloperoxidase Antibody <1.0 AI (<1.0)
[2018-07-30 20:45] LABS: Albumin 2.7 g/dL (3.8-4.8)
[2018-08-01 12:35] LABS: ANA Screen, IFA Positive (Negative)
== END 2018-07-26 17:03 | disposition home or self-care (01) | DRG 70 ==
LOC: ED 15:35 → 4A 18:31
PROVIDERS: ADMIT Internal Medicine; ATTEND Internal Medicine
PROC: 0DB58ZX Excision of Esophagus, Via Natural or Artificial Opening Endoscopic, Diagnostic (ICD-10-PCS; principal; 2018-07-20)
DX: G93.41 Metabolic encephalopathy (principal); J18.9 Pneumonia, unspecified organism; J96.91 Respiratory failure, unspecified with hypoxia; N17.9 Acute kidney failure, unspecified; I12.9 Hypertensive chronic kidney disease with stage 1 through stage 4 chronic kidney disease, or unspecified chronic kidney disease; N18.3 Chronic kidney disease, stage 3 (moderate); E83.42 Hypomagnesemia; E83.39 Other disorders of phosphorus metabolism; E11.65 Type 2 diabetes mellitus with hyperglycemia; D50.9 Iron deficiency anemia, unspecified; K20.9 Esophagitis, unspecified; E11.22 Type 2 diabetes mellitus with diabetic chronic kidney disease; E11.649 Type 2 diabetes mellitus with hypoglycemia without coma; Z85.819 Personal history of malignant neoplasm of unspecified site of lip, oral cavity, and pharynx; Z92.21 Personal history of antineoplastic chemotherapy; Z79.899 Other long term (current) drug therapy; Z92.3 Personal history of irradiation; Z79.4 Long term (current) use of insulin
CPT/HCPCS: 36415; 71045; 74176; 76770; 80048; 80053; 80061; 80320; 81001; 82140; 82270; 82550; 82553; 82728; 82805; 82947; 82962; 83010; 83036; 83550; 83735; 83880; 83970; 84100; 84165; 84484; 85007; 85014; 85018; 85025; 85027; 85610; 85730; 86021; 86038; 86160; 86850; 86900; 86901; 86920; 87040; 88305; 88312; 88341; 88342; 93005; 93010; 93306; 94640; 94760; G0378; C9113; G0480; J0456; J0696; J1644; J1815; J1956; J2405; J2704; J3475; J7030; J7040; J7042; J7050; J7070; Q0162